=== PATIENT | male | born 1950 | race American Indian/Alaskan Native ===

== ENCOUNTER 2017-02-07 23:17 | Observation (INO) | payer MEDICARE, BC, OTHER ==
[2017-02-07] MEDS ORDERED: Sodium Chloride 0.9% 10 ML Syringe FLUSH PRN (23:28)
[2017-02-07] MEDS ORDERED: Ondansetron 4 MG/2 ML SDV IVPUSH ONE (23:28)
[2017-02-07] MEDS ORDERED: Sodium Chloride 0.9% 2.5 ML Syringe FLUSH PRN (23:28)
[2017-02-07] MEDS ORDERED: Sodium Chloride 0.9% 1,000 ML IV ONE (23:28)
--- NOTE | 2017-02-07 23:33 | EDM.PDOC ---
ED HPI GENERAL MEDICAL PROBLEM - General Stated Complaint: FALL/FLU LIKE SYMPTOMS Time Seen by Provider: 02/07/17 23:26 - History of Present Illness INITIAL COMMENTS - FREE TEXT/NARRATIVE: HISTORY AND PHYSICAL: History of present illness: The patient is a 66-year-old male with a history of hypertension foot drop for a few weeks which is not new and 3 heart attacks with 3 stents done at [facility] in [place], the last one was in September, who presents via EMS for a one- day history of nausea vomiting and diarrhea all day and a syncopal event. According to EMS they were dispatched with a syncopal event and on arrival patient was groggy and a heart rate in the 30s and he was hypotensive. They thought he might be in third degree heart block from their monitor. After moving into the car in route his heart rate went up to the 70s and he was in sinus Patient currently in the ED is awake alert and oriented and contributing all answers to questions. He says he had nausea and vomiting all day and multiple episodes of loose runny stool --neither the vomit or the diarrhea was black or bloody. The story is that he was in the bathroom and he may have tripped and fell passing out or he may of had a syncopal event but is unsure how long he had loss of consciousness for. Patient complained of generalized weakness and lightheadedness prior to these events and all day and currently complains of that as well. In the ER he has no head or neck pain no chest pain no shortness of breath no abdominal pain and no extremity complaints. He has no neurosensory changes in his legs or arms and does not feel confused. Patient denies any symptomatology in the ED. He only feels generalized weakness Review of systems: As per history of present illness and below otherwise all systems reviewed and negative. Past medical history: As per history of present illness and as reviewed below otherwise noncontributory. Surgical history: As per history of present illness and as reviewed below otherwise noncontributory. Social history: No reported history of drug or alcohol abuse. Family history: As per history of present illness and as reviewed below otherwise noncontributory. Physical exam: General: Well-developed well-nourished man who is speaking clearly and easily in the ED and is cooperative moving all extremities. Vital signs been noted by me. HEENT: Atraumatic, normocephalic, pupils reactive, negative for conjunctival pallor or scleral icterus, mucous membranes moist, throat clear, neck supple, nontender, trachea midline. There are no midline step-offs tenderness defects of the cervical spine and the c-collar that was applied by EMS was removed by me during this exam. Is no evidence of any scalp or facial trauma. Lungs: Clear to auscultation, breath sounds equal bilaterally, chest nontender. Heart: S1S2, regular, negative for clicks, rubs, or JVD. Abdomen: Soft, nondistended, nontender. He has a small soft reducible umbilical hernia Negative for masses or hepatosplenomegaly. Negative for costovertebral tenderness. Pelvis: Stable nontender. Genitourinary: Deferred. Rectal: Deferred. Extremities: Atraumatic, negative for cords or calf pain. Neurovascular unremarkable. Full range of motion without defects or deficits Neuro: Awake, alert, oriented. Cranial nerves II through XII unremarkable. Cerebellum unremarkable. Motor and sensory unremarkable throughout. Exam nonfocal. Back: There are no midline step-offs tenderness defects the thoracic or lumbar spine no posterior rib or posterior pelvis tenderness and no soft tissue injuries are appreciated Diagnostics: EKG chest x-ray CT scan of the head CBC CMP INR lipase amylase troponin UA Therapeutics: IV O2 monitor IV fluids pacer pads Zofran Rocephin 0103: All testing results were discussed with the patient and family at bedside as well as our hospitalist ; he has agreed to observation admission. Impression: Syncopal event, episode of bradycardia resolved spontaneously, UTI, history of vomiting and diarrhea stable Definitive disposition and diagnosis as appropriate pending reevaluation and review of above. - Related Data Allergies Allergy/AdvReac Type Severity Reaction Status Date / Time No Known Allergies Allergy Verified 02/08/17 00:27 Home Meds: Home Meds Clopidogrel Bisulfate [Clopidogrel] 75 mg PO QAM 02/07/17 [History] Diclofenac Sodium [IMW: Diclofenac Sodium] 75 mg PO BIDMEALS PRN 02/07/17 [ History] Lisinopril 2.5 mg PO DAILY 02/07/17 [History] Metoprolol Succinate [Toprol XL] 25 g PO DAILY 02/07/17 [History] Pregabalin [Lyrica] 75 mg PO DAILY 02/07/17 [History] Sertraline HCl 50 mg PO QAM 02/07/17 [History] Past Medical History - Past Health History Medical/Surgical History: Denies Medical/Surgical History Social & Family History - Tobacco Use Years of Tobacco use: 45 - Alcohol Use Days Per Week of Alcohol Use: 0 - Recreational Drug Use Recreational Drug Use: No ED ROS GENERAL - Review of Systems Review Of Systems: ROS reveals no pertinent complaints other than HPI. ED EXAM, GENERAL - Physical Exam Exam: See Below (See dictation) Course - Vital Signs Last Recorded V/S: Last Vital Signs Temp 35.9 C 02/07/17 23:45 Pulse 71 02/07/17 23:45 Resp 18 02/07/17 23:45 BP 94/63 02/07/17 23:45 Pulse Ox 94 L 02/07/17 23:45 - Orders/Labs/Meds Orders: Active Orders 24 hr Category Date Time Status Patient Status [ADT] Stat ADT 02/08/17 01:04 Ordered Blood Glucose Check, Bedside [RC] ONETIME Care 02/07/17 23:27 Active Cardiac Monitoring [RC] . DIRECTED Care 02/07/17 23:27 Active Communication Order [RC] STAT Care 02/07/17 23:29 Active EKG Documentation Completion [RC] STAT Care 02/07/17 23:27 Active Oxygen Therapy, ED [RC] ASDIRECTED Care 02/07/17 23:27 Active Pulse Oximetry [RC] ASDIRECTED Care 02/07/17 23:27 Active Chest 1V Frontal [CR] Stat Exams 02/07/17 23:28 Taken Head wo Cont [CT] Stat Exams 02/07/17 23:28 Taken CULTURE URINE [RM] Stat Lab 02/08/17 01:04 Ordered Sodium Chloride 0.9% [Saline Flush] Med 02/07/17 23:28 Active 10 ml FLUSH ASDIRECTED PRN Sodium Chloride 0.9% [Saline Flush] Med 02/07/17 23:28 Active 2.5 ml FLUSH ASDIRECTED PRN cefTRIAXone [Rocephin in Dextrose,Iso-Osm 1 GM/50 ML] 1 Med 02/08/17 01:04 Ordered gm Premix Bag 1 bag IV ONETIME Saline Lock Insert [OM.PC] Stat Oth 02/07/17 23:27 Ordered Medication Orders Sodium Chloride (Saline Flush) 10 ml FLUSH ASDIRECTED PRN PRN Reason: Keep Vein Open Last Admin: 02/07/17 23:35 Dose: 10 ml Sodium Chloride (Saline Flush) 2.5 ml FLUSH ASDIRECTED PRN PRN Reason: Keep Vein Open Last Admin: 02/07/17 23:34 Dose: 2.5 ml Labs: Laboratory Tests 02/07/17 02/07/17 02/07/17 Range/Units 23:29 23:42 23:42 WBC 12.46 H (4.0-11.0) K/uL RBC 5.17 (4.50-5.90) M/uL Hgb 15.5 (13.0-17.0) g/dL Hct 47.7 (38.0-50.0) % MCV 92.3 (80.0-98.0) fL MCH 30.0 (27.0-32.0) pg MCHC 32.5 (31.0-37.0) g/dL RDW Std Deviation 50.9 (28.0-62.0) fl RDW Coeff of Jeanette 15 (11.0-15.0) % Plt Count 206 (150-400) K/uL MPV 10.30 (7.40-12.00) fL Neut % (Auto) 84.7 H (48.0-80.0) % Lymph % (Auto) 7.0 L (16.0-40.0) % Green % (Auto) 5.9 (0.0-15.0) % Eos % (Auto) 2.2 (0.0-7.0) % Baso % (Auto) 0.2 (0.0-1.5) % Neut # (Auto) 10.6 H (1.4-5.7) K/uL Lymph # (Auto) 0.9 (0.6-2.4) K/uL Green # (Auto) 0.7 (0.0-0.8) K/uL Eos # (Auto) 0.3 (0.0-0.7) K/uL Baso # (Auto) 0.0 (0.0-0.1) K/uL Nucleated RBC % 0.0 /100WBC Nucleated RBCs # 0 K/uL INR 1.04 (0.86-1.11) Sodium (136-146) mmol/L Potassium (3.5-5.1) mmol/L Chloride (98-110) mmol/L Carbon Dioxide (21-31) mmol/L BUN (6.0-23.0) mg/dL Creatinine (0.6-1.5) mg/dL Est Cr Clr Drug Dosing Estimated GFR (MDRD) ml/min Glucose (60-110) mg/dL POC Glucose 142 H (60-110) mg/dL Calcium (8.8-10.8) mg/dL Total Bilirubin (0.1-1.5) mg/dL AST (5-40) IU/L ALT (8-54) IU/L Alkaline Phosphatase (40-150) Troponin I (0.0-0.29) NG/ML Total Protein (6.0-8.0) g/dL Albumin (3.4-4.8) g/dL Globulin (2.0-3.5) g/dL Albumin/Globulin Ratio (1.3-2.8) Amylase (10-90) U/L Lipase (7-80) U/L Urine Color Urine Appearance Urine pH (5.0-8.0) Ur Specific [place] (1.001-1.035) Urine Protein (NEGATIVE) mg/dL Urine Glucose (UA) (NEGATIVE) mg/dL Urine Ketones (NEGATIVE) mg/dL Urine Occult Blood (NEGATIVE) Urine Nitrite (NEGATIVE) Urine Bilirubin (NEGATIVE) Urine Ictotest Urine Urobilinogen (<2.0) EU/dL Ur Leukocyte Esterase (NEGATIVE) Urine RBC (0-2/HPF) Urine WBC (0-5/HPF) Ur Epithelial Cells (NONE-FEW) Urine Bacteria (NEGATIVE) Hyaline Casts (0-2/LPF) Urine Mucus (NONE-MOD) Urinalysis Comment 02/07/17 02/07/17 02/08/17 Range/Units 23:42 23:42 00:04 WBC (4.0-11.0) K/uL RBC (4.50-5.90) M/uL Hgb (13.0-17.0) g/dL Hct (38.0-50.0) % MCV (80.0-98.0) fL MCH (27.0-32.0) pg MCHC (31.0-37.0) g/dL RDW Std Deviation (28.0-62.0) fl RDW Coeff of Jeanette (11.0-15.0) % Plt Count (150-400) K/uL MPV (7.40-12.00) fL Neut % (Auto) (48.0-80.0) % Lymph % (Auto) (16.0-40.0) % Green % (Auto) (0.0-15.0) % Eos % (Auto) (0.0-7.0) % Baso % (Auto) (0.0-1.5) % Neut # (Auto) (1.4-5.7) K/uL Lymph # (Auto) (0.6-2.4) K/uL Green # (Auto) (0.0-0.8) K/uL Eos # (Auto) (0.0-0.7) K/uL Baso # (Auto) (0.0-0.1) K/uL Nucleated RBC % /100WBC Nucleated RBCs # K/uL INR (0.86-1.11) Sodium 142 (136-146) mmol/L Potassium 4.0 (3.5-5.1) mmol/L Chloride 111 H (98-110) mmol/L Carbon Dioxide 22 (21-31) mmol/L BUN 18 (6.0-23.0) mg/dL Creatinine 1.5 (0.6-1.5) mg/dL Est Cr Clr Drug Dosing TNP Estimated GFR (MDRD) 46.7 ml/min Glucose 133 H (60-110) mg/dL POC Glucose (60-110) mg/dL Calcium 8.4 L (8.8-10.8) mg/dL Total Bilirubin 1.8 H (0.1-1.5) mg/dL AST 15 (5-40) IU/L ALT 16 (8-54) IU/L Alkaline Phosphatase 66 (40-150) Troponin I < 0.10 (0.0-0.29) NG/ML Total Protein 6.3 (6.0-8.0) g/dL Albumin 3.7 (3.4-4.8) g/dL Globulin 2.6 (2.0-3.5) g/dL Albumin/Globulin Ratio 1.4 (1.3-2.8) Amylase 54 (10-90) U/L Lipase 23 (7-80) U/L Urine Color DARK YELLOW Urine Appearance SLT CLOUDY Urine pH 5.5 (5.0-8.0) Ur Specific [place] >= 1.030 (1.001-1.035) Urine Protein 100 (NEGATIVE) mg/dL Urine Glucose (UA) NEGATIVE (NEGATIVE) mg/dL Urine Ketones 15 H (NEGATIVE) mg/dL Urine Occult Blood NEGATIVE (NEGATIVE) Urine Nitrite NEGATIVE (NEGATIVE) Urine Bilirubin MODERATE H (NEGATIVE) Urine Ictotest POSITIVE Urine Urobilinogen 0.2 (<2.0) EU/dL Ur Leukocyte Esterase NEGATIVE (NEGATIVE) Urine RBC 0-2 (0-2/HPF) Urine WBC 2-3 (0-5/HPF) Ur Epithelial Cells FEW (NONE-FEW) Urine Bacteria 2+ H (NEGATIVE) Hyaline Casts 10-15 (0-2/LPF) Urine Mucus LIGHT (NONE-MOD) Urinalysis Comment SEE COMMENT Meds: Medications Generic Name Dose Route Start Last Admin Trade Name Freq PRN Reason Stop Dose Admin Sodium Chloride 10 ml 02/07/17 23:28 02/07/17 23:35 Saline Flush FLUSH 10 ml ASDIRECTED PRN Administration Keep Vein Open Sodium Chloride 2.5 ml 02/07/17 23:28 02/07/17 23:34 Saline Flush FLUSH 2.5 ml ASDIRECTED PRN Administration Keep Vein Open Discontinued Medications Generic Name Dose Route Start Last Admin Trade Name Freq PRN Reason Stop Dose Admin Sodium Chloride 1,000 mls @ 999 mls/hr 02/07/17 23:28 02/07/17 23:34 Normal Saline IV 02/08/17 00:28 999 mls/hr STAT ONE Administration Ondansetron HCl 4 mg 02/07/17 23:28 02/07/17 23:35 Zofran IVPUSH 02/07/17 23:29 4 mg ONETIME ONE Administration Departure - Departure Time of Disposition: 01:06 Disposition: Refer to Observation Condition: good Clinical Impression: Vomiting and diarrhea Syncope Qualifiers: Syncope type: unspecified Qualified Code(s): R55 - Syncope and collapse UTI (urinary tract infection) Qualifiers: Urinary tract infection type: site unspecified Hematuria presence: without hematuria Qualified Code(s): N39.0 - Urinary tract infection, site not specified - My Orders Last 24 Hours: My Active Orders 02/07/17 23:27 Blood Glucose Check, Bedside [RC] ONETIME Cardiac Monitoring [RC] . DIRECTED EKG Documentation Completion [RC] STAT Oxygen Therapy, ED [RC] ASDIRECTED Pulse Oximetry [RC] ASDIRECTED Saline Lock Insert [OM.PC] Stat 02/07/17 23:28 Chest 1V Frontal [CR] Stat Head wo Cont [CT] Stat Sodium Chloride 0.9% [Saline Flush] 10 ml FLUSH ASDIRECTED PRN Sodium Chloride 0.9% [Saline Flush] 2.5 ml FLUSH ASDIRECTED PRN 02/07/17 23:29 Communication Order [RC] STAT 02/08/17 01:04 Patient Status [ADT] Stat CULTURE URINE [RM] Stat cefTRIAXone [Rocephin in Dextrose,Iso-Osm 1 GM/50 ML] 1 gm Premix Bag 1 bag IV ONETIME - Assessment/Plan Last 24 Hours: My Active Orders 02/07/17 23:27 Blood Glucose Check, Bedside [RC] ONETIME Cardiac Monitoring [RC] . DIRECTED EKG Documentation Completion [RC] STAT Oxygen Therapy, ED [RC] ASDIRECTED Pulse Oximetry [RC] ASDIRECTED Saline Lock Insert [OM.PC] Stat 02/07/17 23:28 Chest 1V Frontal [CR] Stat Head wo Cont [CT] Stat Sodium Chloride 0.9% [Saline Flush] 10 ml FLUSH ASDIRECTED PRN Sodium Chloride 0.9% [Saline Flush] 2.5 ml FLUSH ASDIRECTED PRN 02/07/17 23:29 Communication Order [RC] STAT 02/08/17 01:04 Patient Status [ADT] Stat CULTURE URINE [RM] Stat cefTRIAXone [Rocephin in Dextrose,Iso-Osm 1 GM/50 ML] 1 gm Premix Bag 1 bag IV ONETIME
[2017-02-08 00:07] LABS: CHLORIDE,CL 111 mmol/L (98-110); SODIUM,NA 142 mmol/L (136-146)
[2017-02-08] MEDS ORDERED: cefTRIAXone 1 GM in Premix Bag 1 BAG IV ONE (01:04)
[2017-02-08 05:23] LABS: CHLORIDE,CL 113 mmol/L (98-110); SODIUM,NA 142 mmol/L (136-146)
[2017-02-08] MEDS ORDERED: Diclofenac Sodium 75 MG Tab.EC PO PRN (08:20)
[2017-02-08] MEDS ORDERED: Metoprolol Succinate 25 MG Tab.ER PO SCH (09:00)
[2017-02-08] MEDS ORDERED: Sertraline 50 MG Tab PO SCH (09:00)
[2017-02-08] MEDS ORDERED: Pregabalin 75 MG Cap PO SCH (09:00)
[2017-02-08] MEDS ORDERED: Clopidogrel 75 MG Tab PO SCH (09:00)
[2017-02-08] MEDS ORDERED: Lisinopril 5 MG Tab PO SCH (09:00)
[2017-02-08 09:05] VITALS: BP 110/66
[2017-02-08] MEDS ORDERED: Famotidine 20 MG Tab PO ONE (09:27)
[2017-02-08] MEDS ORDERED: Levofloxacin 500 MG Tab PO SCH (10:00)
--- NOTE | 2017-02-08 14:30 | CR ---
EXAM DATE: 02/08/17 PATIENT'S AGE: 66 Patient: TOMI FARZAD Facility: [place], [place] Site . Site : 1950 Study: XRay Chest [id number]/18/2017 11:52:26 PM Ordering Physician: Natalee Hendrix Final Report: INDICATION: Shortness of breath TECHNIQUE: Chest 1 view. COMPARISON: 05/03/2014 FINDINGS: Cardiovascular and mediastinum: Heart size and vasculature are normal in caliber and appearance. Mediastinum is within normal limits. Lungs and pleural space: Lungs are clear. No sign of infiltrate. Stable subcentimeter bilateral lower lobe nodular densities. No sign of pleural effusion. No pneumothorax. Bones and soft tissues: No significant findings. IMPRESSION: No acute pulmonary or cardiac abnormalities. Stable appearance of chest compared to 05/03/14. Dictated by Tomi Rodriguez MD @ Feb 08 2017 12:13AM (Electronic Signature) Report Signed by Proxy and Original Signed Document filed in the Medical Record. [facility]
--- NOTE | 2017-02-08 14:31 | CT ---
EXAM DATE: 02/08/17 PATIENT'S AGE: 66 Patient: LORI PANDA Facility: [place], [place] Site . Site : 1950 Study: CT Head [id number]/19/2017 12:21:13 AM Ordering Physician: ELVIRA Final Report: INDICATIONS: Pain. TECHNIQUE: CT head without contrast. COMPARISON: CT head without contrast November 05, 2012. FINDINGS: Mild volume loss. Focal atrophy versus arachnoid cyst in the left middle cranial fossa, unchanged. No mass effect or midline shift. No hydrocephalus. No CT evidence of acute hemorrhage or infarction. No abnormal extra-axial fluid collection. Bone windows show no acute abnormality. Visualized paranasal sinuses and orbits are unremarkable. IMPRESSION: No acute intracranial abnormality. Dictated by Rick Hernandez MD @ 02/08/2017 12:26:00 AM Dictated by: Rick Hernandez MD @ 02/08/2017 00:26:20 (Electronic Signature) Report Signed by Proxy and Original Signed Document filed in the Medical Record. [facility]
--- NOTE | 2017-02-10 11:05 | PCM.HP ---
H&P History of Present Illness - General Date of Service: 02/08/17 Admit Problem/Dx: Syncope Source of Information: Patient History Limitations: Reports: No limitations - History of Present Illness Initial Comments - Free Text/Narative: 66-year-old male that was admitted after having an unwitnessed syncopal episode. Patient states that over the past day he has had nausea, vomiting and diarrhea. His appetite has been depressed. He states he went to the bathroom and is unsure what happened next but woke up on the floor. He is unsure how long he was unconscious for. When EMS arrived they found that his heart rate was in the 30s and he was hypotensive. There was concern for complete heart block but once the patient was moved into the ambulance his heart rate increased to mid 70s. Patient was brought to the emergency room where he denied any pain but only weakness. Visiting with the patient in the emergency room, he denies any headaches, dizziness, lightheadedness, chest pain, palpitations, shortness of breath, wheezing, cough, abdominal pain, nausea, vomiting, constipation, dysuria, hematuria, fever, numbness/tingling/weakness in the upper and lower extremities bilaterally. His only complaint is generalized weakness. ER course: Head CT and chest x-ray were unremarkable. White blood cell count was elevated at 13,000. Initial troponin was negative. CMP was negative. Urinalysis showed + 2 bacteria. Patient was given IV fluids and an IM injection of Rocephin. Epigastric Pain Score (Numeric/FACES): 4 - Related Data Allergies/Adverse Reactions: Allergies Allergy/AdvReac Type Severity Reaction Status Date / Time No Known Allergies Allergy Verified 02/08/17 00:27 Home Medications: Home Meds Clopidogrel Bisulfate [Clopidogrel] 75 mg PO QAM 02/07/17 [History] Diclofenac Sodium [IMW: Diclofenac Sodium] 75 mg PO BIDMEALS PRN 02/07/17 [ History] Lisinopril 2.5 mg PO DAILY 02/07/17 [History] Metoprolol Succinate [Toprol XL] 25 mg PO DAILY 02/07/17 [History] Pregabalin [Lyrica] 75 mg PO DAILY 02/07/17 [History] Sertraline HCl 50 mg PO QAM 02/07/17 [History] Levofloxacin [Levaquin] 750 mg PO Q24H #4 tablet 02/08/17 [Rx] Past Medical History - Past Health History Medical/Surgical History: Denies Medical/Surgical History Cardiovascular History: Reports: High cholesterol, Hypertension, [place], Stents Other Cardiovascular History: 3 heart attacks, 3 stents Respiratory History: Reports: COPD Musculoskeletal History: Reports: Arthritis, Back pain, chronic - Infectious Disease History Infectious Disease History: Reports: Chicken pox, Measles, Mumps - Past Surgical History GI Surgical History: Reports: Cholecystectomy Social & Family History - Family History Family Medical History: Noncontributory - Tobacco Use Smoking Status *Q: Former Smoker Years of Tobacco use: 45 Used Tobacco, but Quit: Yes Month Tobacco Last Used: not applicable Second Hand Smoke Exposure: No - Caffeine Use Caffeine Use: Reports: Coffee Caffeine Use Comment: 3-4cups/day - Alcohol Use Days Per Week of Alcohol Use: 0 - Recreational Drug Use Recreational Drug Use: No H&P Review of Systems - Review of Systems: Review Of Systems: See Below General: Reports: weakness (Generalized weakness) HEENT: Reports: no symptoms Pulmonary: Reports: No Symptoms Cardiovascular: Reports: no symptoms Gastrointestinal: Reports: No symptoms Genitourinary: Reports: no symptoms Musculoskeletal: Reports: no symptoms Skin: Reports: no symptoms Psychiatric: Reports: no symptoms Neurological: Reports: No Symptoms Hematologic/Lymphatic: Reports: no symptoms Immunologic: Reports: no symptoms Exam - Exam Exam: See Below - Vital Signs Vital Signs: Last Vital Signs Temp 98.7 F 02/08/17 08:00 Pulse 77 02/08/17 08:49 Resp 18 02/08/17 08:00 BP 104/65 02/08/17 08:49 Pulse Ox 90 L 02/08/17 08:00 Weight: 229 lb 4.492 oz - Exam Quality Assessment: DVT prophylaxis (scd's) General: alert, oriented, cooperative HEENT: Mucosa moist & pink, Posterior pharynx clear Neck: supple, trachea midline, 2 Lungs: Clear to auscultation, Normal respiratory effort Cardiovascular: regular rate, regular rhythm Abdomen: normal bowel sounds, soft Back Exam: normal inspection Extremities: normal inspection. No: calf tenderness, edema Peripheral Pulses: 2+: radial (L), radial (R) Skin: warm, dry, intact Neurological: cranial nerves intact Neuro Extensive - Mental Status: alert, oriented x3, normal mood/affect, normal cognition Neuro Extensive - Motor, Sensory, Reflexes: CN II-XII intact Psychiatric: alert, normal affect, normal mood - Patient Data Result Diagrams: 02/08/17 04:43 02/08/17 04:43 *Q Meaningful Use (ADM) - VTE *Q VTE Criteria *Q: - Stroke *Q Stroke Criteria *Q: - AMI *Q AMI Criteria *Q: - Problem List (1) Syncope SNOMED Code(s): 149561432 ICD Code: R55 - SYNCOPE AND COLLAPSE Status: Acute Qualifiers: Syncope type: unspecified Qualified Code(s): R55 - Syncope and collapse (2) UTI (urinary tract infection) SNOMED Code(s): 44617862 ICD Code: N39.0 - URINARY TRACT INFECTION, SITE NOT SPECIFIED Status: Acute Qualifiers: Urinary tract infection type: site unspecified Hematuria presence: without hematuria Qualified Code(s): N39.0 - Urinary tract infection, site not specified (3) Vomiting and diarrhea SNOMED Code(s): 403694127 ICD Code: R11.10 - VOMITING, UNSPECIFIED; R19.7 - DIARRHEA, UNSPECIFIED Status: Acute Problem List Initiated/Reviewed/Updated: Yes Assessment/Plan Comment:: 66-year-old male admitted with an unwitnessed syncopal episode, bradycardia and urinary tract infection. #1. Urinary tract infection: -Patient will be started on Levaquin 750 mg by mouth daily. #2. Bradycardia/unwitnessed syncopal episode: -Patient will be placed on telemetry. -Head CT and chest x-ray unremarkable. Discharge: Admission diagnosis: #1. Unwitnessed syncopal episode #2. Bradycardia #3. Urinary tract infection #4. Generalized weakness Discharge diagnoses: #1. Unwitnessed syncopal episode #2. Bradycardia, improved #3. Urinary tract infection #4. Generalized weakness, improved Patient was admitted after suffering an unwitnessed syncopal episode with bradycardia and found to have urinary tract infection while in the emergency room with +2 bacteria noted on urinalysis. Patient received an IM injection of Rocephin while in the emergency room and then was started on Levaquin 750 mg by mouth. He was also given IV fluids and monitored on telemetry for any cardiac events. No cardiac events were appreciated. Initial troponins were negative x2. White blood cell count improved from 13,000-10,000. Generalized weakness improved and the patient was able to ambulate without any assistance and without any dizziness or lightheadedness. Patient is tolerating oral intake and voiding appropriately upon discharge. Discharge plan: #1. Prescribe Levaquin 750 mg daily for 4 days for UTI. #2. Patient will followup with Dr. Smith on February 16, 2017.
== END 2017-02-08 11:59 | disposition home or self-care (01) ==
LOC: MW.ED 23:17 → MW.MS 02-08 01:12
PROVIDERS: ADMIT Family Medicine; ATTEND Family Medicine
DX: R55 Syncope and collapse (principal); N39.0 Urinary tract infection, site not specified; Z87.891 Personal history of nicotine dependence; Z79.899 Other long term (current) drug therapy; I25.2 Old myocardial infarction; I10 Essential (primary) hypertension; Z95.5 Presence of coronary angioplasty implant and graft; E78.00 Pure hypercholesterolemia, unspecified; J44.9 Chronic obstructive pulmonary disease, unspecified; M19.90 Unspecified osteoarthritis, unspecified site
CPT/HCPCS: 36415; 70450; 71010; 80048; 80053; 81001; 82150; 82962; 83690; 84484; 85025; 85610; 87086; 93005; 96361; 96374; 96375; 99285; A9270; G0378; J0696; J2405; J7040

== ENCOUNTER 2017-05-18 08:34 | Observation (INO) | payer MEDICARE, BC, OTHER ==
[2017-05-18] MEDS ORDERED: Ondansetron 4 MG/2 ML SDV IVPUSH ONE (08:40)
[2017-05-18] MEDS ORDERED: Sodium Chloride 0.9% 1,000 ML IV ONE (08:40)
--- NOTE | 2017-05-18 08:44 | EDM.PDOC ---
ED HPI GENERAL MEDICAL PROBLEM - General Stated Complaint: CHEST PAIN Time Seen by Provider: 05/18/17 08:42 Source of Information: Reports: Patient - History of Present Illness INITIAL COMMENTS - FREE TEXT/NARRATIVE: HISTORY AND PHYSICAL: History of present illness: Shunt presents with abdominal pain by EMS Pain is 0 out of 10 at rest increased 5 out of 10 with movement has been increasing since yesterday evening associated with fever nausea vomiting chills sweats Last bowel movement this morning denies diarrhea or constipation no dysuria no chest pain shortness breath headache dizziness palpitation no bowel or urine symptoms Review of systems: As per history of present illness and below otherwise all systems reviewed and negative. Past medical history: As per history of present illness and as reviewed below otherwise noncontributory. Surgical history: As per history of present illness and as reviewed below otherwise noncontributory. Social history: No reported history of drug or alcohol abuse. Family history: As per history of present illness and as reviewed below otherwise noncontributory. Physical exam: HEENT: Atraumatic, normocephalic, pupils reactive, negative for conjunctival pallor or scleral icterus, mucous membranes moist, throat clear, neck supple, nontender, trachea midline. Lungs: Clear to auscultation, breath sounds equal bilaterally, chest nontender. Heart: S1S2, regular, negative for clicks, rubs, or JVD. Abdomen: Soft, nondistended, nontender on upper quadrants and left lower quadrant however right lower quadrant is associated with guarding tenderness on deep palpation. Negative for masses or hepatosplenomegaly. Negative for costovertebral tenderness. Pelvis: Stable nontender. Genitourinary: Deferred. Rectal: Deferred. Extremities: Atraumatic, negative for cords or calf pain. Neurovascular unremarkable. Neuro: Awake, alert, oriented. Cranial nerves II through XII unremarkable. Cerebellum unremarkable. Motor and sensory unremarkable throughout. Exam nonfocal. Diagnostics: []CBC, CMP, UA, troponin lipase EMS glucose 117 Therapeutics: []Liter normal saline bolus Patient declines pain medication at this time Zofran 8 mg IV Morphine [address] Carlisle informed of the acute appendicitis he'll be down to the ER for his evaluation and treatment, further orders pending Dr. Carlisle's evaluation Impression: Acute appendicitis []Right lower quadrant pain Chronic history of baseline Definitive disposition and diagnosis as appropriate pending reevaluation and review of above. right lower abdominal Pain Score (Numeric/FACES): 5 - Related Data Allergies Allergy/AdvReac Type Severity Reaction Status Date / Time No Known Allergies Allergy Verified 05/18/17 08:53 Home Meds: Home Meds Clopidogrel Bisulfate [Clopidogrel] 75 mg PO QAM 02/07/17 [History] Diclofenac Sodium [IMW: Diclofenac Sodium] 75 mg PO BIDMEALS PRN 02/07/17 [ History] Lisinopril 2.5 mg PO DAILY 02/07/17 [History] Metoprolol Succinate [Toprol XL] 25 mg PO DAILY 02/07/17 [History] Sertraline HCl 50 mg PO QAM 02/07/17 [History] Cyanocobalamin (Vitamin B-12) [Cyanocobalamin Injection] 1,000 mcg IJ Q14D 05/18 [History] Nitroglycerin [Nitrostat] 0.4 mg SL Q5M PRN 05/18/17 [History] Past Medical History - Past Health History Medical/Surgical History: Denies Medical/Surgical History Cardiovascular History: Reports: High Cholesterol, Hypertension, [place], Stents Other Cardiovascular History: 3 heart attacks, 3 stents Respiratory History: Reports: COPD Musculoskeletal History: Reports: Arthritis, Back Pain, Chronic - Infectious Disease History Infectious Disease History: Reports: Chicken Pox, Measles, Mumps - Past Surgical History GI Surgical History: Reports: Cholecystectomy Social & Family History - Family History Family Medical History: Noncontributory - Tobacco Use Smoking Status *Q: Former Smoker Years of Tobacco use: 45 Used Tobacco, but Quit: Yes Month Tobacco Last Used: not applicable Second Hand Smoke Exposure: No - Caffeine Use Caffeine Use: Reports: Coffee Caffeine Use Comment: 3-4cups/day - Alcohol Use Days Per Week of Alcohol Use: 0 - Recreational Drug Use Recreational Drug Use: No ED ROS GENERAL - Review of Systems Review Of Systems: ROS reveals no pertinent complaints other than HPI. ED EXAM, GENERAL - Physical Exam Exam: See Below Course - Vital Signs Last Recorded V/S: Last Vital Signs Temp 36.5 C 05/18/17 10:21 Pulse 62 05/18/17 10:21 Resp 14 05/18/17 10:21 BP 123/70 05/18/17 10:21 Pulse Ox 94 L 05/18/17 10:21 - Orders/Labs/Meds Orders: Active Orders 24 hr Category Date Time Status EKG Documentation Completion [RC] STAT Care 05/18/17 08:41 Active Abdomen Pelvis w wo Cont [CT] Stat Exams 05/18/17 08:42 Taken UA W/MICROSCOPIC [URIN] Stat Lab 05/18/17 10:30 Results Morphine Med 05/18/17 11:13 Once 2 mg IV ONETIME ONE Labs: Laboratory Tests 05/18/17 05/18/17 05/18/17 Range/Units 08:47 08:47 08:47 WBC 16.72 H (4.0-11.0) K/uL RBC 5.12 (4.50-5.90) M/uL Hgb 15.6 (13.0-17.0) g/dL Hct 46.9 (38.0-50.0) % MCV 91.6 (80.0-98.0) fL MCH 30.5 (27.0-32.0) pg MCHC 33.3 (31.0-37.0) g/dL RDW Std Deviation 51.7 (28.0-62.0) fl RDW Coeff of Jeanette 15 (11.0-15.0) % Plt Count 190 (150-400) K/uL MPV 10.40 (7.40-12.00) fL Neut % (Auto) 84.4 H (48.0-80.0) % Lymph % (Auto) 8.6 L (16.0-40.0) % Barber % (Auto) 5.7 (0.0-15.0) % Eos % (Auto) 1.0 (0.0-7.0) % Baso % (Auto) 0.3 (0.0-1.5) % Neut # (Auto) 14.1 H (1.4-5.7) K/uL Lymph # (Auto) 1.4 (0.6-2.4) K/uL Barber # (Auto) 1.0 H (0.0-0.8) K/uL Eos # (Auto) 0.2 (0.0-0.7) K/uL Baso # (Auto) 0.1 (0.0-0.1) K/uL Nucleated RBC % 0.0 /100WBC Nucleated RBCs # 0 K/uL Sodium 139 (136-146) mmol/L Potassium 4.1 (3.5-5.1) mmol/L Chloride 106 (98-110) mmol/L Carbon Dioxide 26 (21-31) mmol/L BUN 18 (6.0-23.0) mg/dL Creatinine 1.0 (0.6-1.5) mg/dL Est Cr Clr Drug Dosing 74.01 mL/min Estimated GFR (MDRD) > 60.0 ml/min Glucose 118 H (60-110) mg/dL Calcium 8.9 (8.8-10.8) mg/dL Total Bilirubin 1.8 H (0.1-1.5) mg/dL AST 23 (5-40) IU/L ALT 19 (8-54) IU/L Alkaline Phosphatase 64 (40-150) Troponin I < 0.10 (0.0-0.29) NG/ML Total Protein 6.8 (6.0-8.0) g/dL Albumin 4.0 (3.4-4.8) g/dL Globulin 2.8 (2.0-3.5) g/dL Albumin/Globulin Ratio 1.4 (1.3-2.8) Amylase (10-90) U/L Lipase (7-80) U/L Urine Color Urine Appearance Urine pH (5.0-8.0) Ur Specific [place] (1.001-1.035) Urine Protein (NEGATIVE) mg/dL Urine Glucose (UA) (NEGATIVE) mg/dL Urine Ketones (NEGATIVE) mg/dL Urine Occult Blood (NEGATIVE) Urine Nitrite (NEGATIVE) Urine Bilirubin (NEGATIVE) Urine Urobilinogen (<2.0) EU/dL Ur Leukocyte Esterase (NEGATIVE) 05/18/17 05/18/17 Range/Units 09:49 10:30 WBC (4.0-11.0) K/uL RBC (4.50-5.90) M/uL Hgb (13.0-17.0) g/dL Hct (38.0-50.0) % MCV (80.0-98.0) fL MCH (27.0-32.0) pg MCHC (31.0-37.0) g/dL RDW Std Deviation (28.0-62.0) fl RDW Coeff of Jeanette (11.0-15.0) % Plt Count (150-400) K/uL MPV (7.40-12.00) fL Neut % (Auto) (48.0-80.0) % Lymph % (Auto) (16.0-40.0) % Barber % (Auto) (0.0-15.0) % Eos % (Auto) (0.0-7.0) % Baso % (Auto) (0.0-1.5) % Neut # (Auto) (1.4-5.7) K/uL Lymph # (Auto) (0.6-2.4) K/uL Barber # (Auto) (0.0-0.8) K/uL Eos # (Auto) (0.0-0.7) K/uL Baso # (Auto) (0.0-0.1) K/uL Nucleated RBC % /100WBC Nucleated RBCs # K/uL Sodium (136-146) mmol/L Potassium (3.5-5.1) mmol/L Chloride (98-110) mmol/L Carbon Dioxide (21-31) mmol/L BUN (6.0-23.0) mg/dL Creatinine (0.6-1.5) mg/dL Est Cr Clr Drug Dosing mL/min Estimated GFR (MDRD) ml/min Glucose (60-110) mg/dL Calcium (8.8-10.8) mg/dL Total Bilirubin (0.1-1.5) mg/dL AST (5-40) IU/L ALT (8-54) IU/L Alkaline Phosphatase (40-150) Troponin I (0.0-0.29) NG/ML Total Protein (6.0-8.0) g/dL Albumin (3.4-4.8) g/dL Globulin (2.0-3.5) g/dL Albumin/Globulin Ratio (1.3-2.8) Amylase 56 (10-90) U/L Lipase 22 (7-80) U/L Urine Color YELLOW Urine Appearance CLEAR Urine pH 6.0 (5.0-8.0) Ur Specific [place] 1.015 (1.001-1.035) Urine Protein TRACE (NEGATIVE) mg/dL Urine Glucose (UA) NEGATIVE (NEGATIVE) mg/dL Urine Ketones NEGATIVE (NEGATIVE) mg/dL Urine Occult Blood NEGATIVE (NEGATIVE) Urine Nitrite NEGATIVE (NEGATIVE) Urine Bilirubin NEGATIVE (NEGATIVE) Urine Urobilinogen 0.2 (<2.0) EU/dL Ur Leukocyte Esterase NEGATIVE (NEGATIVE) Meds: Medications Discontinued Medications Generic Name Dose Route Start Last Admin Trade Name Lico PRN Reason Stop Dose Admin Sodium Chloride 1,000 mls @ 999 mls/hr 05/18/17 08:40 05/18/17 08:55 Normal Saline IV 05/18/17 09:40 999 mls/hr STAT ONE Administration Iopamidol 100 ml 05/18/17 10:17 05/18/17 10:33 Isovue Multipack-370 (76%) IVPUSH 05/18/17 10:18 100 ml ONETIME STA Administration Ondansetron HCl 8 mg 05/18/17 08:40 05/18/17 08:55 Zofran IVPUSH 05/18/17 08:41 8 mg ONETIME ONE Administration Departure - Departure Time of Disposition: 11:14 Disposition: Refer to Observation Condition: Fair Clinical Impression: Acute appendicitis - Discharge Information - My Orders Last 24 Hours: My Active Orders 05/18/17 08:41 EKG Documentation Completion [RC] STAT 05/18/17 08:42 Abdomen Pelvis w wo Cont [CT] Stat 05/18/17 10:30 UA W/MICROSCOPIC [URIN] Stat 05/18/17 11:13 Morphine 2 mg IV ONETIME ONE - Assessment/Plan Last 24 Hours: My Active Orders 05/18/17 08:41 EKG Documentation Completion [RC] STAT 05/18/17 08:42 Abdomen Pelvis w wo Cont [CT] Stat 05/18/17 10:30 UA W/MICROSCOPIC [URIN] Stat 05/18/17 11:13 Morphine 2 mg IV ONETIME ONE
[2017-05-18 09:18] LABS: CHLORIDE,CL 106 mmol/L (98-110); SODIUM,NA 139 mmol/L (136-146)
[2017-05-18] MEDS ORDERED: Iopamidol 755 MG/ML 500 ML Multipack Bottle IVPUSH STA (10:17)
[2017-05-18] MEDS ORDERED: Morphine 10 MG/ML Syringe IV ONE (11:13)
[2017-05-18] MEDS ORDERED: ceFAZolin 1 GM Vial ONE (11:37)
[2017-05-18] MEDS ORDERED: Bupivacaine 0.5% 30 ML SDV ONE (11:37)
[2017-05-18] MEDS ORDERED: cefOXitin 2 GM in Premix Bag 1 BAG IV ONE (11:39)
[2017-05-18] MEDS ORDERED: Midazolam 1 MG/ML 2 ML SDV ONE (11:41)
[2017-05-18] MEDS ORDERED: Lidocaine 2% 5 ML SDV ONE (11:41)
[2017-05-18] MEDS ORDERED: Ondansetron 4 MG/2 ML SDV ONE (11:41)
[2017-05-18] MEDS ORDERED: Succinylcholine/Normal Saline 200 MG/10 ML Syringe ONE (11:41)
[2017-05-18] MEDS ORDERED: fentaNYL 250 MCG/5 ML SDV ONE (11:41)
[2017-05-18] MEDS ORDERED: Propofol 200 MG/20 ML SDV ONE (11:41)
[2017-05-18] MEDS ORDERED: Lactated Ringers 1,000 ML IV SCH (11:45)
--- NOTE | 2017-05-18 11:46 | PCM.HP ---
H&P History of Present Illness - General Date of Service: 05/18/17 Admit Problem/Dx: Admission Diagnosis/Problem Admission Diagnosis/Problem Acute appendicitis 24 hour history of right lower quadrant pain with nausea. No anorexia. No vomiting. No change in bowel habits. No fever orhills. Source of Information: Patient, Family History Limitations: Reports: No Limitations - History of Present Illness Symptom Onset Date: 05/17/17 Location: Reports: Abdomen Quality: Reports: Ache, Pressure Improves with: Reports: Rest Worsens with: Reports: Movement Context: Reports: Sick Contact Associated Symptoms: Reports: Nausea/Vomiting (No vomiting). Denies: Shortness of Breath right lower abdominal Pain Score (Numeric/FACES): 5 - Related Data Allergies/Adverse Reactions: Allergies Allergy/AdvReac Type Severity Reaction Status Date / Time No Known Allergies Allergy Verified 05/18/17 08:53 Home Medications: Home Meds Clopidogrel Bisulfate [Clopidogrel] 75 mg PO QAM 02/07/17 [History] Diclofenac Sodium [IMW: Diclofenac Sodium] 75 mg PO BIDMEALS PRN 02/07/17 [ History] Lisinopril 2.5 mg PO DAILY 02/07/17 [History] Metoprolol Succinate [Toprol XL] 25 mg PO DAILY 02/07/17 [History] Sertraline HCl 50 mg PO QAM 02/07/17 [History] Cyanocobalamin (Vitamin B-12) [Cyanocobalamin Injection] 1,000 mcg IJ Q14D 05/18 [History] Nitroglycerin [Nitrostat] 0.4 mg SL Q5M PRN 05/18/17 [History] Past Medical History - Past Health History Medical/Surgical History: Denies Medical/Surgical History Cardiovascular History: Reports: High Cholesterol, Hypertension, [place], Stents Other Cardiovascular History: 3 heart attacks, 3 stents Respiratory History: Reports: COPD Musculoskeletal History: Reports: Arthritis, Back Pain, Chronic - Infectious Disease History Infectious Disease History: Reports: Chicken Pox, Measles, Mumps - Past Surgical History GI Surgical History: Reports: Cholecystectomy, Hernia, Abdominal (Umbilical) Social & Family History - Family History Family Medical History: Noncontributory - Tobacco Use Smoking Status *Q: Former Smoker Years of Tobacco use: 45 Used Tobacco, but Quit: Yes Month Tobacco Last Used: not applicable Second Hand Smoke Exposure: No - Caffeine Use Caffeine Use: Reports: Coffee Caffeine Use Comment: 3-4cups/day - Alcohol Use Days Per Week of Alcohol Use: 0 - Recreational Drug Use Recreational Drug Use: No H&P Review of Systems - Review of Systems: Review Of Systems: See Below General: Reports: Decreased Appetite. Denies: Fever, Chills HEENT: Reports: No Symptoms Pulmonary: Reports: Shortness of Breath (COPD). Denies: Hemoptysis Cardiovascular: Denies: Chest Pain, Lightheadedness, Syncope Gastrointestinal: Reports: Abdominal Pain, Anorexia, Decreased Appetite, Flatus , Nausea. Denies: Black Stool, Bloody Stool, Constipation, Diarrhea, Distension , Melena, Vomiting Genitourinary: Reports: No Symptoms Musculoskeletal: Reports: No Symptoms Skin: Denies: Cyanosis, Jaundice Psychiatric: Denies: Confusion, Depression, Anxiety Neurological: Reports: No Symptoms Hematologic/Lymphatic: Reports: No Symptoms Immunologic: Reports: No Symptoms Exam - Exam Exam: See Below - Vital Signs Vital Signs: Last Vital Signs Temp 97.7 F 05/18/17 10:21 Pulse 62 05/18/17 10:21 Resp 14 05/18/17 10:21 BP 123/70 05/18/17 10:21 Pulse Ox 94 L 05/18/17 10:21 Weight: 220 lb - Exam Quality Assessment: Supplemental Oxygen General: Alert, Oriented, Cooperative, Mild Distress HEENT: Conjunctiva Clear, EACs Clear, Hearing Intact, Pupils Equal, Pupils Reactive. No: Scleral Icterus Neck: Supple, Trachea Midline, +2 Carotid Pulse wo Bruit Lungs: Clear to Auscultation, Normal Respiratory Effort. No: Rales, Rhonchi, Wheezing Cardiovascular: Regular Rate, Regular Rhythm. No: Bradycardia, Tachycardia GI/Abdominal Exam: Normal Bowel Sounds, Soft, No Distention, Guarding, Rebound, Tender (Right lower quadrant), Hernia (Umbilical). No: Rigid, Mass, Hepatomegaly, Splenomegaly (Male) Exam: No Hernia, Normal Inspection Rectal (Males) Exam: Deferred Back Exam: Normal Inspection Extremities: Normal Inspection, Non-Tender, No Pedal Edema Peripheral Pulses: 4+: Posterior Tibial (L), Posterior Tibial (R), Dorsalis Pedis (L), Dorsalis Pedis (R) Skin: Warm, Dry, Intact Neurological: Cranial Nerves Intact Neuro Extensive - Mental Status: Alert, Oriented x3, Normal Mood/Affect, Normal Cognition Psychiatric: Alert, Normal Affect, Normal Mood - Patient Data Lab Results Last 24 hrs: Laboratory Results - last 24 hr 05/18/17 05/18/17 05/18/17 Range/Units 08:47 08:47 08:47 WBC 16.72 H (4.0-11.0) K/uL RBC 5.12 (4.50-5.90) M/uL Hgb 15.6 (13.0-17.0) g/dL Hct 46.9 (38.0-50.0) % MCV 91.6 (80.0-98.0) fL MCH 30.5 (27.0-32.0) pg MCHC 33.3 (31.0-37.0) g/dL RDW Std Deviation 51.7 (28.0-62.0) fl RDW Coeff of Jeanette 15 (11.0-15.0) % Plt Count 190 (150-400) K/uL MPV 10.40 (7.40-12.00) fL Neut % (Auto) 84.4 H (48.0-80.0) % Lymph % (Auto) 8.6 L (16.0-40.0) % [place] % (Auto) 5.7 (0.0-15.0) % Eos % (Auto) 1.0 (0.0-7.0) % Baso % (Auto) 0.3 (0.0-1.5) % Neut # (Auto) 14.1 H (1.4-5.7) K/uL Lymph # (Auto) 1.4 (0.6-2.4) K/uL [place] # (Auto) 1.0 H (0.0-0.8) K/uL Eos # (Auto) 0.2 (0.0-0.7) K/uL Baso # (Auto) 0.1 (0.0-0.1) K/uL Nucleated RBC % 0.0 /100WBC Nucleated RBCs # 0 K/uL Sodium 139 (136-146) mmol/L Potassium 4.1 (3.5-5.1) mmol/L Chloride 106 (98-110) mmol/L Carbon Dioxide 26 (21-31) mmol/L BUN 18 (6.0-23.0) mg/dL Creatinine 1.0 (0.6-1.5) mg/dL Est Cr Clr Drug Dosing 74.01 mL/min Estimated GFR (MDRD) > 60.0 ml/min Glucose 118 H (60-110) mg/dL Calcium 8.9 (8.8-10.8) mg/dL Total Bilirubin 1.8 H (0.1-1.5) mg/dL AST 23 (5-40) IU/L ALT 19 (8-54) IU/L Alkaline Phosphatase 64 (40-150) Troponin I < 0.10 (0.0-0.29) NG/ML Total Protein 6.8 (6.0-8.0) g/dL Albumin 4.0 (3.4-4.8) g/dL Globulin 2.8 (2.0-3.5) g/dL Albumin/Globulin Ratio 1.4 (1.3-2.8) Amylase (10-90) U/L Lipase (7-80) U/L Urine Color Urine Appearance Urine pH (5.0-8.0) Ur Specific [place] (1.001-1.035) Urine Protein (NEGATIVE) mg/dL Urine Glucose (UA) (NEGATIVE) mg/dL Urine Ketones (NEGATIVE) mg/dL Urine Occult Blood (NEGATIVE) Urine Nitrite (NEGATIVE) Urine Bilirubin (NEGATIVE) Urine Urobilinogen (<2.0) EU/dL Ur Leukocyte Esterase (NEGATIVE) Urine RBC (0-2/HPF) Urine WBC (0-5/HPF) Ur Epithelial Cells (NONE-FEW) Urine Bacteria (NEGATIVE) Urine Mucus (NONE-MOD) 05/18/17 05/18/17 Range/Units 09:49 10:30 WBC (4.0-11.0) K/uL RBC (4.50-5.90) M/uL Hgb (13.0-17.0) g/dL Hct (38.0-50.0) % MCV (80.0-98.0) fL MCH (27.0-32.0) pg MCHC (31.0-37.0) g/dL RDW Std Deviation (28.0-62.0) fl RDW Coeff of Jeanette (11.0-15.0) % Plt Count (150-400) K/uL MPV (7.40-12.00) fL Neut % (Auto) (48.0-80.0) % Lymph % (Auto) (16.0-40.0) % [place] % (Auto) (0.0-15.0) % Eos % (Auto) (0.0-7.0) % Baso % (Auto) (0.0-1.5) % Neut # (Auto) (1.4-5.7) K/uL Lymph # (Auto) (0.6-2.4) K/uL [place] # (Auto) (0.0-0.8) K/uL Eos # (Auto) (0.0-0.7) K/uL Baso # (Auto) (0.0-0.1) K/uL Nucleated RBC % /100WBC Nucleated RBCs # K/uL Sodium (136-146) mmol/L Potassium (3.5-5.1) mmol/L Chloride (98-110) mmol/L Carbon Dioxide (21-31) mmol/L BUN (6.0-23.0) mg/dL Creatinine (0.6-1.5) mg/dL Est Cr Clr Drug Dosing mL/min Estimated GFR (MDRD) ml/min Glucose (60-110) mg/dL Calcium (8.8-10.8) mg/dL Total Bilirubin (0.1-1.5) mg/dL AST (5-40) IU/L ALT (8-54) IU/L Alkaline Phosphatase (40-150) Troponin I (0.0-0.29) NG/ML Total Protein (6.0-8.0) g/dL Albumin (3.4-4.8) g/dL Globulin (2.0-3.5) g/dL Albumin/Globulin Ratio (1.3-2.8) Amylase 56 (10-90) U/L Lipase 22 (7-80) U/L Urine Color YELLOW Urine Appearance CLEAR Urine pH 6.0 (5.0-8.0) Ur Specific [place] 1.015 (1.001-1.035) Urine Protein TRACE (NEGATIVE) mg/dL Urine Glucose (UA) NEGATIVE (NEGATIVE) mg/dL Urine Ketones NEGATIVE (NEGATIVE) mg/dL Urine Occult Blood NEGATIVE (NEGATIVE) Urine Nitrite NEGATIVE (NEGATIVE) Urine Bilirubin NEGATIVE (NEGATIVE) Urine Urobilinogen 0.2 (<2.0) EU/dL Ur Leukocyte Esterase NEGATIVE (NEGATIVE) Urine RBC 0-1 (0-2/HPF) Urine WBC 0-1 (0-5/HPF) Ur Epithelial Cells RARE (NONE-FEW) Urine Bacteria RARE (NEGATIVE) Urine Mucus LIGHT (NONE-MOD) Result Diagrams: 05/18/17 08:47 05/18/17 08:47 *Q Meaningful Use (ADM) - VTE *Q VTE Criteria *Q: - Stroke *Q Stroke Criteria *Q: - AMI *Q AMI Criteria *Q: - Problem List (1) Right lower quadrant pain SNOMED Code(s): 639766088 ICD Code: R10.31 - RIGHT LOWER QUADRANT PAIN Status: Acute Priority: High Current Visit: Yes (2) Acute appendicitis SNOMED Code(s): 00219911 ICD Code: K35.80 - UNSPECIFIED ACUTE APPENDICITIS Status: Acute Priority : High Current Visit: Yes Problem List Initiated/Reviewed/Updated: Yes Orders Last 24hrs: Active Orders 24 hr Category Date Time Status Admission Status [Patient Status] [ADT] Stat ADT 05/18/17 11:15 Active Antiembolic Devices [RC] PER UNIT ROUTINE Care 05/18/17 11:40 Ordered EKG Documentation Completion [RC] STAT Care 05/18/17 08:41 Active [place] Catheter Insertion [Insert Urinary Catheter] [OM. Care 05/18/17 11:45 Ordered PC] Q24H Oxygen Therapy [RC] PRN Care 05/18/17 11:38 Ordered Pulse Oximetry [RC] INTERMITTENT Care 05/18/17 11:38 Ordered Skin Preparation [RC] .PREOP Care 05/18/17 11:39 Ordered Urinary Catheter Assessment [RC] ASDIRECTED Care 05/18/17 11:39 Ordered Urinary Catheter Assessment [RC] ASDIRECTED Care 05/18/17 11:40 Ordered Nothing Per Oral Diet [DIET] Diet 05/18/17 Breakfast Ordered Abdomen Pelvis w wo Cont [CT] Stat Exams 05/18/17 08:42 Taken CULTURE BLOOD [BC] Stat Lab 05/18/17 11:17 Ordered CULTURE BLOOD [BC] Stat Lab 05/18/17 11:17 Ordered Lactated Ringers @ 125 MLS/HR(1000ml) Med 05/18/17 11:45 Ordered Lactated Ringers [Ringers, Lactated] 1,000 ml IV ASDIRECTED cefOXitin [Mefoxin in Dextrose,Iso-Osm 2 GM/50 ML] 2 gm Med 05/18/17 11:39 Ordered Premix Bag 1 bag IV ONETIME Antiembolic Hose [OM.PC] PER UNIT ROUTINE Oth 05/18/17 06:00 Ordered Antiembolic Hose [OM.PC] PER UNIT ROUTINE Oth 05/19/17 06:00 Ordered Blood Culture x2 Reflex Set [OM.PC] Stat Ot 05/18/17 11:17 Ordered Sequential Compression Device [OM.PC] Routine Oth 05/18/17 11:38 Ordered Resuscitation Status Routine Resus Stat 05/18/17 11:38 Ordered Assessment/Plan Comment:: Acute appendicitis by physical examination and CT criteria. Laparoscopic appendectomy, possible open appendectomy. Both operative procedures, along with the risks, including, but not limited to, bleeding, infection, pneumonia, deep venous thrombosis, pulmonary emboli, myocardial infarction, and adjacent organ injury have been reviewed with the patient who voices understanding, offers no questions and agrees to proceed.
--- NOTE | 2017-05-18 11:46 | CT ---
EXAM DATE: 05/18/17 PATIENT'S AGE: 66 Patient: LORI PANDA Facility: [place], [place] Site . Site : 1950 Study: CT Abdomen/Pelvis W/ and W/O Cont [id number]/27/2017 10:32:06 AM Ordering Physician: Doctor Weems Final Report: INDICATION: RLQ and Back Pain TECHNIQUE: CT abdomen and pelvis acquired without and with IV contrast. COMPARISON: None FINDINGS: Lower chest: Scarring/atelectasis. Scattered calcified granulomata. . Liver: Unremarkable. Spleen: Scattered calcified granulomata. . Pancreas: Unremarkable. Gallbladder and bile ducts: Unremarkable. Kidneys: Bilateral renal cysts the largest in the midpole of the right kidney measuring 2.9 x 2.4 cm. Adrenal glands: Unremarkable. GI tract: Small hiatal hernia. Dilated fluid filled appendix measuring up to 15 mm with circumferential wall thickening and periappendiceal stranding. No evidence of perforation or abscess formation. . Vascular structures: Atherosclerotic disease. No sign of aneurysm. Lymph nodes: Unremarkable. Miscellaneous: Left periumbilical fat containing hernia. No free air or significant free fluid. Pelvic Organs: Enlarged prostate. Bones: Degenerative changes. IMPRESSION: 1. Acute appendicitis with no evidence of perforation or abscess formation. 2. Enlarged prostate. Please correlate with PSA levels. The results called to Dr. Rose at 1110 hours on May 18, 2017 Dictated by Mitesh Tadeo MD @ 05/18/2017 11:09:24 AM Dictated by: Mitesh Tadeo MD @ 05/18/2017 11:11:25 (Electronic Signature) Report Signed by Proxy. [facility]
--- NOTE | 2017-05-18 12:06 | PCM.PREANE ---
Preanesthetic Assessment - Procedure Proposed Procedure: Laparoscopic appendectomy - Anesthesia/Transfusion/Family Hx Anesthesia History: Prior Anesthesia Without Reaction Family History of Anesthesia Reaction: No Transfusion History: No Prior Transfusion(s) Intubation History: Unknown Additional History: Cholecystectomy for gangrenous gall bladder - 1 yr ago. NC x 3 per patient. COPD - 50+ pk yrs of smoking (stopped 4 yr ago). Dyspnea on stair climbing. 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) Other: Reports: None - Physical Assessment NPO Status Date: 05/17/17 NPO Status Time: 23:00 O2 Sat by Pulse Oximetry: 94 Respiratory Rate: 14 Vital Signs: Last Vital Signs Temp 97.7 F 05/18/17 10:21 Pulse 62 05/18/17 10:21 Resp 14 05/18/17 10:21 BP 123/70 05/18/17 10:21 Pulse Ox 94 L 05/18/17 10:21 Height: 5 ft 10 in Weight: 220 lb ASA Class: 3E Mental Status: Alert & Oriented x3 Airway Class: Mallampati = 1 Dentition: Reports: Normal Dentition Thyro-Mental Finger Breadths: 3 Mouth Opening Finger Breadths: 3 ROM/Head Extension: Full Lungs: Clear to Auscultation, Other (accessory muscle efforts for big breath) Cardiovascular: Regular Rate, Regular Rhythm, No Murmurs - Lab Values: Laboratory Last Values WBC 16.72 K/uL (4.0-11.0) H 05/18/17 08:47 RBC 5.12 M/uL (4.50-5.90) 05/18/17 08:47 Hgb 15.6 g/dL (13.0-17.0) 05/18/17 08:47 Hct 46.9 % (38.0-50.0) 05/18/17 08:47 MCV 91.6 fL (80.0-98.0) 05/18/17 08:47 MCH 30.5 pg (27.0-32.0) 05/18/17 08:47 MCHC 33.3 g/dL (31.0-37.0) 05/18/17 08:47 RDW Std Deviation 51.7 fl (28.0-62.0) 05/18/17 08:47 RDW Coeff of Jeanette 15 % (11.0-15.0) 05/18/17 08:47 Plt Count 190 K/uL (150-400) 05/18/17 08:47 MPV 10.40 fL (7.40-12.00) 05/18/17 08:47 Neut % (Auto) 84.4 % (48.0-80.0) H 05/18/17 08:47 Lymph % (Auto) 8.6 % (16.0-40.0) L 05/18/17 08:47 [place] % (Auto) 5.7 % (0.0-15.0) 05/18/17 08:47 Eos % (Auto) 1.0 % (0.0-7.0) 05/18/17 08:47 Baso % (Auto) 0.3 % (0.0-1.5) 05/18/17 08:47 Neut # (Auto) 14.1 K/uL (1.4-5.7) H 05/18/17 08:47 Lymph # (Auto) 1.4 K/uL (0.6-2.4) 05/18/17 08:47 [place] # (Auto) 1.0 K/uL (0.0-0.8) H 05/18/17 08:47 Eos # (Auto) 0.2 K/uL (0.0-0.7) 05/18/17 08:47 Baso # (Auto) 0.1 K/uL (0.0-0.1) 05/18/17 08:47 Nucleated RBC % 0.0 /100WBC 05/18/17 08:47 Nucleated RBCs # 0 K/uL 05/18/17 08:47 Sodium 139 mmol/L (136-146) 05/18/17 08:47 Potassium 4.1 mmol/L (3.5-5.1) 05/18/17 08:47 Chloride 106 mmol/L (98-110) 05/18/17 08:47 Carbon Dioxide 26 mmol/L (21-31) 05/18/17 08:47 BUN 18 mg/dL (6.0-23.0) 05/18/17 08:47 Creatinine 1.0 mg/dL (0.6-1.5) 05/18/17 08:47 Est Cr Clr Drug Dosing 74.01 mL/min 05/18/17 08:47 Estimated GFR (MDRD) > 60.0 ml/min 05/18/17 08:47 Glucose 118 mg/dL (60-110) H 05/18/17 08:47 Calcium 8.9 mg/dL (8.8-10.8) 05/18/17 08:47 Total Bilirubin 1.8 mg/dL (0.1-1.5) H 05/18/17 08:47 AST 23 IU/L (5-40) 05/18/17 08:47 ALT 19 IU/L (8-54) 05/18/17 08:47 Alkaline Phosphatase 64 (40-150) 05/18/17 08:47 Troponin I < 0.10 NG/ML (0.0-0.29) 05/18/17 08:47 Total Protein 6.8 g/dL (6.0-8.0) 05/18/17 08:47 Albumin 4.0 g/dL (3.4-4.8) 05/18/17 08:47 Globulin 2.8 g/dL (2.0-3.5) 05/18/17 08:47 Albumin/Globulin Ratio 1.4 (1.3-2.8) 05/18/17 08:47 Amylase 56 U/L (10-90) 05/18/17 09:49 Lipase 22 U/L (7-80) 05/18/17 09:49 Urine Color YELLOW 05/18/17 10:30 Urine Appearance CLEAR 05/18/17 10:30 Urine pH 6.0 (5.0-8.0) 05/18/17 10:30 Ur Specific Steele 1.015 (1.001-1.035) 05/18/17 10:30 Urine Protein TRACE mg/dL (NEGATIVE) 05/18/17 10:30 Urine Glucose (UA) NEGATIVE mg/dL (NEGATIVE) 05/18/17 10:30 Urine Ketones NEGATIVE mg/dL (NEGATIVE) 05/18/17 10:30 Urine Occult Blood NEGATIVE (NEGATIVE) 05/18/17 10:30 Urine Nitrite NEGATIVE (NEGATIVE) 05/18/17 10:30 Urine Bilirubin NEGATIVE (NEGATIVE) 05/18/17 10:30 Urine Urobilinogen 0.2 EU/dL (<2.0) 05/18/17 10:30 Ur Leukocyte Esterase NEGATIVE (NEGATIVE) 05/18/17 10:30 Urine RBC 0-1 (0-2/HPF) 05/18/17 10:30 Urine WBC 0-1 (0-5/HPF) 05/18/17 10:30 Ur Epithelial Cells RARE (NONE-FEW) 05/18/17 10:30 Urine Bacteria RARE (NEGATIVE) 05/18/17 10:30 Urine Mucus LIGHT (NONE-MOD) 05/18/17 10:30 - Allergies Allergies/Adverse Reactions: Allergies Allergy/AdvReac Type Severity Reaction Status Date / Time No Known Allergies Allergy Verified 05/18/17 08:53 - Blood Blood Available: No Product(s) Available: None - Anesthesia Plan Free Text/Narrative:: Probable pump problems; may need pressors to get through operative procedure and anesthetic. Beta Guido: Metoprolol Med Last Dose Date: 05/17/17 Med Last Dose Time: 08:00 - Acknowledgements Anesthesia Type Planned: General Anesthesia Pt an Appropriate Candidate for the Planned Anesthesia: Yes Alternatives and Risks of Anesthesia Discussed w Pt/Guardian: Yes Pt/Guardian Understands and Agrees with Anesthesia Plan: Yes Additional Comments: Risks and benefits discussed by APPLIANCE REPAIR TECHNICIAN, patient and spouse. PreAnesthesia Questionnaire - Past Health History Medical/Surgical History: Denies Medical/Surgical History Cardiovascular History: Reports: High Cholesterol, Hypertension, [place], Stents Other Cardiovascular History: 3 heart attacks, 3 stents Respiratory History: Reports: COPD Musculoskeletal History: Reports: Arthritis, Back Pain, Chronic - Infectious Disease History Infectious Disease History: Reports: Chicken Pox, Measles, Mumps - Past Surgical History GI Surgical History: Reports: Cholecystectomy, Hernia, Abdominal (Umbilical) - SUBSTANCE USE Smoking Status *Q: Former Smoker Tobacco Use Within Last Twelve Months: No Second Hand Smoke Exposure: No Days Per Week of Alcohol Use: 0 Recreational Drug Use History: No - HOME MEDS Home Medications: Home Meds Clopidogrel Bisulfate [Clopidogrel] 75 mg PO QAM 02/07/17 [History] Diclofenac Sodium [IMW: Diclofenac Sodium] 75 mg PO BIDMEALS PRN 02/07/17 [ History] Lisinopril 2.5 mg PO DAILY 02/07/17 [History] Metoprolol Succinate [Toprol XL] 25 mg PO DAILY 02/07/17 [History] Sertraline HCl 50 mg PO QAM 02/07/17 [History] Cyanocobalamin (Vitamin B-12) [Cyanocobalamin Injection] 1,000 mcg IJ Q14D 05/18 [History] Nitroglycerin [Nitrostat] 0.4 mg SL Q5M PRN 05/18/17 [History] - CURRENT (IN HOUSE) MEDS Current Meds: Current Medications Lactated Ringer's (Ringers, Lactated) 1,000 mls @ 125 mls/hr IV ASDIRECTED LORNE Cefoxitin Sodium 2 gm/ Premix 50 mls @ 100 mls/hr IV ONETIME ONE Stop: 05/18/17 12:08 Discontinued Medications Bupivacaine HCl (Marcaine 0.5%) Confirm Administered Dose 30 ml .ROUTE .STK-MED ONE Stop: 05/18/17 11:38 Cefazolin Sodium (Ancef) Confirm Administered Dose 1 gm .ROUTE .STK-MED ONE Stop: 05/18/17 11:38 Fentanyl (Sublimaze) Confirm Administered Dose 250 mcg .ROUTE .STK-MED ONE Stop: 05/18/17 11:42 Sodium Chloride (Normal Saline) 1,000 mls @ 999 mls/hr IV STAT ONE Stop: 05/18/17 09:40 Last Admin: 05/18/17 08:55 Dose: 999 mls/hr Iopamidol (Isovue Multipack-370 (76%)) 100 ml IVPUSH ONETIME STA Stop: 05/18/17 10:18 Last Admin: 05/18/17 10:33 Dose: 100 ml Lidocaine (Xylocaine-Mpf 2%) Confirm Administered Dose 5 ml .ROUTE .STK-MED ONE Stop: 05/18/17 11:42 Midazolam HCl (Versed 1 Mg/Ml) Confirm Administered Dose 2 mg .ROUTE .STK-MED ONE Stop: 05/18/17 11:42 Morphine Sulfate (Morphine) 2 mg IV ONETIME ONE Stop: 05/18/17 11:14 Ondansetron HCl (Zofran) 8 mg IVPUSH ONETIME ONE Stop: 05/18/17 08:41 Last Admin: 05/18/17 08:55 Dose: 8 mg Ondansetron HCl (Zofran) Confirm Administered Dose 4 mg .ROUTE .STK-MED ONE Stop: 05/18/17 11:42 Propofol (Diprivan 20 Ml) Confirm Administered Dose 200 mg .ROUTE .STK-MED ONE Stop: 05/18/17 11:42 Rocuronium Gallant (Zemuron) Confirm Administered Dose 50 mg .ROUTE .STK-MED ONE Stop: 05/18/17 11:42 Succinylcholine Chloride (Succinylcholine In Ns Pf) Confirm Administered Dose 200 mg .ROUTE .STK-MED ONE Stop: 05/18/17 11:42
[2017-05-18] MEDS ORDERED: Etomidate 2 MG/ML 20 ML SDV IVPUSH ONE (12:07)
[2017-05-18] MEDS ORDERED: cefOXitin 1 GM Vial ONE (12:15)
[2017-05-18] MEDS ORDERED: Sodium Chloride 0.9% 20 ML ONE (12:15)
[2017-05-18] MEDS ORDERED: ePHEDrine 50 MG/ML SDV ONE (12:18)
[2017-05-18] MEDS ORDERED: Phenylephrine/Normal Saline 100 MCG/ML 10 ML Syringe ONE (12:21)
[2017-05-18] MEDS ORDERED: fentaNYL 100 MCG/2 ML SDV IVPUSH PRN (12:28)
[2017-05-18] MEDS ORDERED: Albuterol/Ipratropium 3.0-0.5 MG/3 ML Neb Soln NEB ONE (12:40)
[2017-05-18] MEDS ORDERED: fentaNYL 100 MCG/2 ML SDV ONE (12:55)
[2017-05-18] MEDS ORDERED: Ondansetron 4 MG/2 ML SDV IVPUSH PRN (13:13)
[2017-05-18] MEDS ORDERED: Morphine 10 MG/ML Syringe IVPUSH PRN (13:13)
[2017-05-18] MEDS ORDERED: Acetaminophen/HYDROcodone 325-5 MG Tab PO PRN (13:13)
[2017-05-18] MEDS ORDERED: cefOXitin 1 GM in Premix Bag 1 BAG IV SCH (13:15)
[2017-05-18] MEDS ORDERED: Nitroglycerin 0.4 MG Tab.SL SL PRN (13:18)
[2017-05-18] MEDS ORDERED: Diclofenac Sodium 75 MG Tab.EC PO PRN (13:18)
[2017-05-18] MEDS ORDERED: Albuterol/Ipratropium 3.0-0.5 MG/3 ML Neb Soln NEB PRN ×2 (13:19→13:21)
--- NOTE | 2017-05-18 13:24 | PCM.OPNOTE ---
- General Post-Op/Procedure Note Date of Surgery/Procedure: 05/18/17 Pre Op Diagnosis: Right lower quadrant pain. Acute appendicitis by physical exam and CT. Post-Op Diagnosis: Acute gangrenous appendicitis Anesthesia Technique: General ET Tube (ASA IIIE) Primary Surgeon: Boby Carlisle Fluid Replacement, Intraop: 1,100 Output, Urine Amount: 75 EBL in mLs: 20 Condition: Fair Free Text/Narrative:: Dictation [id number]. CPT CODE 50713
--- NOTE | 2017-05-18 14:13 | PCM.POSTAN ---
POST ANESTHESIA ASSESSMENT - MENTAL STATUS Mental Status: Somnolent - RESPIRATORY Respiratory Status: Airway Patent, Supplemental Oxygen Free Text/Narrative:: to ICU -on bipap for resp distress post op - CARDIOVASCULAR CV Status: Pulse Rate WNL, Blood Pressure Stable - GASTROINTESTINAL GI Status: No Symptoms - POST OP HYDRATION Hydration Status: Adequate & Stable
[2017-05-18] MEDS: Lactated Ringers 1,000 ML IV SCH ×2 (14:30→20:38)
--- NOTE | 2017-05-18 14:44 | OR ---
SURGEON: Boby Carlisle M.D. DATE OF PROCEDURE: 05/18/2017 OPERATION PERFORMED: Laparoscopic appendectomy. ANESTHESIA: General endotracheal. ASA CLASSIFICATION: IIIE. PREOPERATIVE DIAGNOSIS: Acute abdomen, right lower quadrant pain. POSTOPERATIVE DIAGNOSIS: Acute gangrenous appendicitis without perforation. ESTIMATED BLOOD LOSS: 20 mL. INTRAOPERATIVE FLUID REPLACEMENT: 1100 mL of crystalloid. DESCRIPTION OF PROCEDURE: The patient was taken to the operating room and placed on the operating table in the supine position. Time-out was called for appropriate identification of the patient and procedure. Sequential compression boots were placed. Following satisfactory attainment of general endotracheal anesthesia, the abdomen was prepped with DuraPrep solution. Sterile drapes were applied. Bolaños catheter was placed prior to prepping the patient. Once the abdomen was prepped with DuraPrep solution and sterile drapes were applied, the skin just above the umbilicus was infiltrated with 0.5% Marcaine solution. The skin incision was made and deepened through the subcutaneous tissue obtaining hemostasis with the use of electrocautery. Veress needle was introduced into the peritoneal cavity. The saline drop test was positive. Carbon dioxide pneumoperitoneum was established with a release set at 13 cm of water. Once we had a satisfactory pneumoperitoneum, a 12 mm suprapubic port was placed after infiltrating the skin with 0.5% Marcaine solution. The patient was now positioned with his head down and rolled to the left. Under camera vision, a 5 mm left lower quadrant port was also placed. Again, the skin was infiltrated with 0.5% Marcaine solution. The appendix was stuck to the right lower quadrant and the adhesions were taken down with a Harmonic scalpel. The mesoappendix was then taken down with a Harmonic scalpel. The appendix was acutely inflamed and gangrenous in appearance, although there was no perforation and no purulent material present. Once the mesoappendix had been completely taken down, the base of the appendix was stapled with the Endo-CHRISTIN stapler and blue load. The appendix was properly placed in an Endopouch. The right lower quadrant was then irrigated with sterile saline solution. All fluid was aspirated. The Endopouch containing appendix and 12 mm suprapubic ports were removed. The abdomen was again inspected for hemostasis and there was no significant bleeding. Under camera vision, the left lower quadrant port was removed and finally, the supraumbilical camera and port were removed. The wounds were inspected for hemostasis and small bleeding sites were electrocoagulated. The supraumbilical and suprapubic ports were closed in 2 layers approximating the subcutaneous tissue with 3-0 Polysorb and the skin with subcuticular 4-0 Monocryl. The left lower quadrant port was closed with subcuticular 4-0 Monocryl. All incisions were Steri- Stripped and dressed with sterile Tegaderm pads. Sponge, needle, and instrument counts were all correct. The patient tolerated the procedure well. Following emergence from anesthesia and extubation, the patient was taken to recovery room in stable condition. The Bolaños catheter was removed prior to emergence from anesthesia. LELIA / FRANCI /[id number] MTDD
--- NOTE | 2017-05-18 14:56 | PCM.CONS ---
H&P History of Present Illness - General Date of Service: 05/18/17 Admit Problem/Dx: Admission Diagnosis/Problem Source of Information: Patient History Limitations: Reports: Other (bipap) - History of Present Illness Initial Comments - Free Text/Narative: 66 yo male with history of COPD, CAD s/p stent, HTN, s/p lap appendectomy. He was in respiratory distress after surgery with oxygen saturation 80's . He was placed on BIPAP FIO2 50 -60% and transferred to ICU. He has a chronic history of low oxygen saturation around 89%. He is not home oxygen. He is a heavy smoker for 45 years. right lower abdominal Pain Score (Numeric/FACES): 5 - Related Data Allergies/Adverse Reactions: Allergies Allergy/AdvReac Type Severity Reaction Status Date / Time No Known Allergies Allergy Verified 05/18/17 08:53 Home Medications: Home Meds Clopidogrel Bisulfate [Clopidogrel] 75 mg PO QAM 02/07/17 [History] Diclofenac Sodium [IMW: Diclofenac Sodium] 75 mg PO BIDMEALS PRN 02/07/17 [ History] Lisinopril 2.5 mg PO DAILY 02/07/17 [History] Metoprolol Succinate [Toprol XL] 25 mg PO DAILY 02/07/17 [History] Sertraline HCl 50 mg PO QAM 02/07/17 [History] Cyanocobalamin (Vitamin B-12) [Cyanocobalamin Injection] 1,000 mcg IJ Q14D 05/18 [History] Nitroglycerin [Nitrostat] 0.4 mg SL Q5M PRN 05/18/17 [History] Past Medical History - Past Health History Medical/Surgical History: Denies Medical/Surgical History Cardiovascular History: Reports: High Cholesterol, Hypertension, [place], Stents Other Cardiovascular History: 3 heart attacks, 3 stents Respiratory History: Reports: COPD Musculoskeletal History: Reports: Arthritis, Back Pain, Chronic - Infectious Disease History Infectious Disease History: Reports: Chicken Pox, Measles, Mumps - Past Surgical History GI Surgical History: Reports: Cholecystectomy, Hernia, Abdominal (Umbilical) Social & Family History - Family History Family Medical History: Noncontributory - Tobacco Use Smoking Status *Q: Former Smoker Years of Tobacco use: 45 Used Tobacco, but Quit: Yes Month Tobacco Last Used: not applicable Second Hand Smoke Exposure: No - Caffeine Use Caffeine Use: Reports: Coffee Caffeine Use Comment: 3-4cups/day - Alcohol Use Days Per Week of Alcohol Use: 0 - Recreational Drug Use Recreational Drug Use: No H&P Review of Systems - Review of Systems: Review Of Systems: See Below General: Reports: No Symptoms HEENT: Reports: No Symptoms Pulmonary: Reports: Shortness of Breath Cardiovascular: Reports: No Symptoms Gastrointestinal: Reports: Abdominal Pain, Other (s/p surgery) Genitourinary: Reports: No Symptoms Musculoskeletal: Reports: No Symptoms Skin: Reports: No Symptoms Psychiatric: Reports: No Symptoms Neurological: Reports: No Symptoms Exam - Exam Exam: See Below - Vital Signs Vital Signs: Last Vital Signs Temp 97.7 F 05/18/17 10:21 Pulse 104 H 05/18/17 13:12 Resp 28 H 05/18/17 13:12 BP 123/80 05/18/17 13:12 Pulse Ox 96 05/18/17 13:12 Weight: 99.79 kg - Exam Quality Assessment: Other (bipap) General: Alert, Oriented HEENT: Conjunctiva Clear, EOMI Neck: Supple, Trachea Midline Lungs: Clear to Auscultation, Normal Respiratory Effort Cardiovascular: Regular Rate, Regular Rhythm - Patient Data Result Diagrams: 05/18/17 08:47 05/18/17 08:47 Consult PN Assessment/Plan Procedures: Procedures ASSAY OF AMYLASE (02/08/17) ASSAY OF CREATININE (04/24/17) ASSAY OF LIPASE (02/08/17) ASSAY OF TROPONIN QUANT (02/08/17) CARDIAC REHAB/MONITOR (12/02/16) CHEST X-RAY 1 VIEW FRONTAL (02/08/17) CO/MEMBANE DIFFUSE CAPACITY (01/02/15) COMPLETE CBC W/AUTO DIFF WBC (02/08/17) COMPREHEN METABOLIC PANEL (02/08/17) CRITICAL CARE ADDL 30 MIN (05/03/14) CRITICAL CARE FIRST HOUR (05/03/14) CT HEAD/BRAIN W/O DYE (02/08/17) ELECTROCARDIOGRAM TRACING (02/08/17) EMERGENCY DEPT VISIT (02/08/17) EMERGENCY DEPT VISIT (05/03/14) EVALUATION OF WHEEZING (01/02/15) EXTREMITY STUDY (07/04/16) GLUCOSE BLOOD TEST (02/08/17) HYDRATE IV INFUSION ADD-ON (02/08/17) METABOLIC PANEL TOTAL CA (02/08/17) MRI LUMBAR SPINE W/O DYE (01/25/17) MRI LWR EXTREMITY W/O&W/DYE (04/24/17) PROTHROMBIN TIME (02/08/17) PULM FUNCTION TEST BY GAS (01/02/15) ROUTINE VENIPUNCTURE (04/24/17) THER/PROPH/DIAG INJ IV PUSH (02/08/17) TX/PRO/DX INJ NEW DRUG ADDON (02/08/17) URINALYSIS AUTO W/SCOPE (02/08/17) URINE CULTURE/COLONY COUNT (02/08/17) Problem List Initiated/Reviewed/Updated: Yes Plan: 66 yo male with copd, CAD s/p lap appendectomy today: contiue BIPAP: decreased FIO2 to 45 %: saturations 98%. will slowly and carefully wean off BIPAP as tolerated. Duoneb q 6 hours scheduled. Duoneb q 4 hrs prn. Pain Control: morphine, norco, volatren Requesting Provider: dia mcrae Date Consult Requested: 05/18/17 Patient History Reviewed: Yes Admission H&P Reviewed: Yes
[2017-05-18] MEDS: Metoprolol Succinate 25 MG Tab.ER PO SCH (15:02)
[2017-05-18] MEDS: Lisinopril 5 MG Tab PO SCH (15:02)
[2017-05-18] MEDS: Albuterol/Ipratropium 3.0-0.5 MG/3 ML Neb Soln NEB SCH (17:03)
[2017-05-18] MEDS: cefOXitin 1 GM in Premix Bag 1 BAG IV SCH (20:07)
[2017-05-19] MEDS: Albuterol/Ipratropium 3.0-0.5 MG/3 ML Neb Soln NEB SCH ×3 (00:15→11:45)
[2017-05-19] MEDS: cefOXitin 1 GM in Premix Bag 1 BAG IV SCH ×2 (04:19→11:00)
[2017-05-19] MEDS: Lactated Ringers 1,000 ML IV SCH (04:21)
[2017-05-19 05:38] LABS: CHLORIDE,CL 108 mmol/L (98-110); SODIUM,NA 142 mmol/L (136-146)
[2017-05-19] MEDS: Lisinopril 5 MG Tab PO SCH (08:21)
[2017-05-19] MEDS: Metoprolol Succinate 25 MG Tab.ER PO SCH (08:22)
[2017-05-19] MEDS ORDERED: Clopidogrel 75 MG Tab PO SCH (09:00)
[2017-05-19] MEDS ORDERED: Sertraline 50 MG Tab PO SCH (09:00)
--- NOTE | 2017-05-19 09:06 | PCM.CONSN ---
<Aruna Troy - Last Filed: 05/19/17 11:41> - General Info Date of Service: 05/19/17 Subjective Update: weaned off bipap. On 1 liter NC saturations 91-92%. Functional Status: Reports: Pain Controlled, Tolerating Diet, Urinating - Review of Systems General: Reports: No Symptoms HEENT: Reports: No Symptoms Pulmonary: Reports: Shortness of Breath (improved) Cardiovascular: Reports: No Symptoms Gastrointestinal: Reports: No Symptoms, Other Genitourinary: Reports: No Symptoms Musculoskeletal: Reports: No Symptoms Skin: Reports: No Symptoms Neurological: Reports: No Symptoms Psychiatric: Reports: No Symptoms - Patient Data Vitals - Most Recent: Last Vital Signs Temp 98.7 F 05/19/17 08:00 Pulse 73 05/19/17 08:22 Resp 18 05/19/17 08:00 BP 108/52 L 05/19/17 08:22 Pulse Ox 91 L 05/19/17 08:00 Weight - Most Recent: 99.79 kg I&O - Last 24 Hours: Intake & Output 05/18/17 05/19/17 05/19/17 22:59 06:59 14:59 Intake Total 1050 2050 Output Total 0 1400 Balance 1050 650 Lab Results Last 24 Hours: Laboratory Results - last 24 hr 05/19/17 05/19/17 Range/Units 05:02 05:02 WBC 10.88 (4.0-11.0) K/uL RBC 4.59 (4.50-5.90) M/uL Hgb 14.0 (13.0-17.0) g/dL Hct 42.4 (38.0-50.0) % MCV 92.4 (80.0-98.0) fL MCH 30.5 (27.0-32.0) pg MCHC 33.0 (31.0-37.0) g/dL RDW Std Deviation 53.0 (28.0-62.0) fl RDW Coeff of Jeanette 16 H (11.0-15.0) % Plt Count 191 (150-400) K/uL MPV 10.50 (7.40-12.00) fL Neut % (Auto) 74.1 (48.0-80.0) % Lymph % (Auto) 16.7 (16.0-40.0) % Carlton % (Auto) 7.8 (0.0-15.0) % Eos % (Auto) 1.0 (0.0-7.0) % Baso % (Auto) 0.4 (0.0-1.5) % Neut # (Auto) 8.1 H (1.4-5.7) K/uL Lymph # (Auto) 1.8 (0.6-2.4) K/uL Carlton # (Auto) 0.9 H (0.0-0.8) K/uL Eos # (Auto) 0.1 (0.0-0.7) K/uL Baso # (Auto) 0.0 (0.0-0.1) K/uL Nucleated RBC % 0.0 /100WBC Nucleated RBCs # 0 K/uL Sodium 142 (136-146) mmol/L Potassium 4.1 (3.5-5.1) mmol/L Chloride 108 (98-110) mmol/L Carbon Dioxide 28 (21-31) mmol/L BUN 10 (6.0-23.0) mg/dL Creatinine 1.1 (0.6-1.5) mg/dL Est Cr Clr Drug Dosing 67.29 mL/min Estimated GFR (MDRD) > 60.0 ml/min Glucose 99 (60-110) mg/dL Calcium 8.2 L (8.8-10.8) mg/dL Med Orders - Current: Current Medications Hydrocodone Bitart/Acetaminophen ([place] 325-5 Mg) 1 - 2 tab PO Q4H PRN PRN Reason: Pain (moderate 4-6) Last Admin: 05/18/17 20:38 Dose: 1 tab Albuterol/Ipratropium (Duoneb 3.0-0.5 Mg/3 Ml) 3 ml NEB Q4HRRT PRN PRN Reason: Wheezing Albuterol/Ipratropium (Duoneb 3.0-0.5 Mg/3 Ml) 3 ml NEB Q6HRRT [facility] Last Admin: 05/19/17 07:00 Dose: 3 ml Cyanocobalamin (Vitamin B12) 1,000 mcg IM Q14D [facility] Diclofenac Sodium (Voltaren) 75 mg PO BIDMEALS PRN PRN Reason: Pain Fentanyl (Sublimaze) 50 mcg IVPUSH Q5M PRN PRN Reason: Pain (severe 7-10) Stop: 05/19/17 12:28 Lactated Ringer's (Ringers, Lactated) 1,000 mls @ 125 mls/hr IV ASDIRECTED [facility] Last Admin: 05/19/17 04:21 Dose: 125 mls/hr Cefoxitin Sodium 1 gm/ Premix 50 mls @ 100 mls/hr IV Q8H [facility] Stop: 05/19/17 12:29 Last Admin: 05/19/17 04:19 Dose: 100 mls/hr Lisinopril (Prinivil) 2.5 mg PO DAILY [facility] Last Admin: 05/19/17 08:21 Dose: Not Given Metoprolol Succinate (Toprol Xl) 25 mg PO DAILY [facility] Last Admin: 05/19/17 08:22 Dose: Not Given Morphine Sulfate (Morphine) 0 mg IVPUSH Q1H PRN PRN Reason: Pain (severe 7-10) Nitroglycerin (Nitrostat) 0.4 mg SL Q5M PRN PRN Reason: Chest Pain Ondansetron HCl (Zofran) 4 mg IVPUSH Q6H PRN PRN Reason: Nausea/Vomiting [facility] [place] Last Admin: 05/19/17 08:04 Dose: 50 mg Discontinued Medications Albuterol/Ipratropium (Duoneb 3.0-0.5 Mg/3 Ml) 3 ml NEB ONETIME ONE Stop: 05/18/17 12:41 Last Admin: 05/18/17 13:30 Dose: 3 ml Albuterol/Ipratropium (Duoneb 3.0-0.5 Mg/3 Ml) 3 ml NEB Q6HRRT PRN PRN Reason: Wheezing Bupivacaine HCl (Marcaine 0.5%) Confirm Administered Dose 30 ml .ROUTE .STK-MED ONE Stop: 05/18/17 11:38 Cefazolin Sodium (Ancef) Confirm Administered Dose 1 gm .ROUTE .STK-MED ONE Stop: 05/18/17 11:38 Cefoxitin Sodium (Mefoxin) Confirm Administered Dose 2 gm .ROUTE .STK-MED ONE Stop: 05/18/17 12:16 Clopidogrel Bisulfate (Plavix) 75 mg PO [facility] Ephedrine Sulfate (Ephedrine Sulfate) Confirm Administered Dose 50 mg .ROUTE .STK-MED ONE Stop: 05/18/17 12:19 Etomidate (Amidate) Confirm Administered Dose 40 mg IVPUSH .STK-MED ONE Stop: 05/18/17 12:08 Fentanyl (Sublimaze) Confirm Administered Dose 250 mcg .ROUTE .STK-MED ONE Stop: 05/18/17 11:42 Fentanyl (Sublimaze) Confirm Administered Dose 100 mcg .ROUTE .STK-MED ONE Stop: 05/18/17 12:56 Glycopyrrolate () Confirm Administered Dose 1 mg .ROUTE .STK-MED ONE Stop: 05/18/17 12:20 Sodium Chloride (Normal Saline) 1,000 mls @ 999 mls/hr IV STAT ONE Stop: 05/18/17 09:40 Last Admin: 05/18/17 08:55 Dose: 999 mls/hr Lactated Ringer's (Ringers, Lactated) 1,000 mls @ 125 mls/hr IV ASDIRECTED [facility] Cefoxitin Sodium 2 gm/ Premix 50 mls @ 100 mls/hr IV ONETIME ONE Stop: 05/18/17 12:08 Last Admin: 05/18/17 14:50 Dose: Not Given Sodium Chloride (Normal Saline) Confirm Administered Dose 20 mls @ as directed .ROUTE .STK-MED ONE Stop: 05/18/17 12:16 Cefoxitin Sodium 1 gm/ Premix 50 mls @ 100 mls/hr IV Q8H [facility] Stop: 05/19/17 05:44 Last Admin: 05/18/17 14:51 Dose: Not Given Iopamidol (Isovue Multipack-370 (76%)) 100 ml IVPUSH ONETIME STA Stop: 05/18/17 10:18 Last Admin: 05/18/17 10:33 Dose: 100 ml Lidocaine (Xylocaine-Mpf 2%) Confirm Administered Dose 5 ml .ROUTE .STK-MED ONE Stop: 05/18/17 11:42 Midazolam HCl (Versed 1 Mg/Ml) Confirm Administered Dose 2 mg .ROUTE .STK-MED ONE Stop: 05/18/17 11:42 Morphine Sulfate (Morphine) 2 mg IV ONETIME ONE Stop: 05/18/17 11:14 Last Admin: 05/18/17 13:49 Dose: Not Given Non-Formulary Medication (Cyanocobalamin (Vitamin B-12) [Cyanocobalamin Injection]) 1,000 mcg IJ Q14D [facility] Last Admin: 05/18/17 18:58 Dose: Not Given Ondansetron HCl (Zofran) 8 mg IVPUSH ONETIME ONE Stop: 05/18/17 08:41 Last Admin: 05/18/17 08:55 Dose: 8 mg Ondansetron HCl (Zofran) Confirm Administered Dose 4 mg .ROUTE .STK-MED ONE Stop: 05/18/17 11:42 Phenylephrine HCl (Phenylephrine In Ns 100 Mcg/Ml) Confirm Administered Dose 1 mg .ROUTE .STK-MED ONE Stop: 05/18/17 12:22 Propofol (Diprivan 20 Ml) Confirm Administered Dose 200 mg .ROUTE .STK-MED ONE Stop: 05/18/17 11:42 Rocuronium [place] (Zemuron) Confirm Administered Dose 50 mg .ROUTE .STK-MED ONE Stop: 05/18/17 11:42 Succinylcholine Chloride (Succinylcholine In Ns Pf) Confirm Administered Dose 200 mg .ROUTE .STK-MED ONE Stop: 05/18/17 11:42 - Exam Quality Assessment: Supplemental Oxygen General: Alert, Oriented HEENT: Pupils Equal, EOMI Neck: Supple, Trachea Midline Lungs: Clear to Auscultation, Normal Respiratory Effort Cardiovascular: Regular Rate, Regular Rhythm GI/Abdominal Exam: Normal Bowel Sounds, Soft, Tender (s/p lap surgery) Back Exam: Normal Inspection Extremities: Normal Inspection Skin: Warm, Dry Neurological: No New Focal Deficit Psy/Mental Status: Alert, Normal Affect, Normal Mood Consult PN Assessment/Plan Procedures: Procedures ASSAY OF AMYLASE (02/08/17) ASSAY OF CREATININE (04/24/17) ASSAY OF LIPASE (02/08/17) ASSAY OF TROPONIN QUANT (02/08/17) CARDIAC REHAB/MONITOR (12/02/16) CHEST X-RAY 1 VIEW FRONTAL (02/08/17) CO/MEMBANE DIFFUSE CAPACITY (01/02/15) COMPLETE CBC W/AUTO DIFF WBC (02/08/17) COMPREHEN METABOLIC PANEL (02/08/17) CRITICAL CARE ADDL 30 MIN (05/03/14) CRITICAL CARE FIRST HOUR (05/03/14) CT HEAD/BRAIN W/O DYE (02/08/17) ELECTROCARDIOGRAM TRACING (02/08/17) EMERGENCY DEPT VISIT (02/08/17) EMERGENCY DEPT VISIT (05/03/14) EVALUATION OF WHEEZING (01/02/15) EXTREMITY STUDY (07/04/16) GLUCOSE BLOOD TEST (02/08/17) HYDRATE IV INFUSION ADD-ON (02/08/17) METABOLIC PANEL TOTAL CA (02/08/17) MRI LUMBAR SPINE W/O DYE (01/25/17) MRI LWR EXTREMITY W/O&W/DYE (04/24/17) PROTHROMBIN TIME (02/08/17) PULM FUNCTION TEST BY GAS (01/02/15) ROUTINE VENIPUNCTURE (04/24/17) THER/PROPH/DIAG INJ IV PUSH (02/08/17) TX/PRO/DX INJ NEW DRUG ADDON (02/08/17) URINALYSIS AUTO W/SCOPE (02/08/17) URINE CULTURE/COLONY COUNT (02/08/17) Problem List Initiated/Reviewed/Updated: Yes My Orders Last 24 Hours: My Active Orders 05/19/17 09:00 Sertraline [Zoloft] 50 mg PO QAM 05/20/17 05:11 BASIC METABOLIC PANEL,BMP [CHEM] AM CBC WITH AUTO DIFF [HEME] AM 05/21/17 05:11 BASIC METABOLIC PANEL,BMP [CHEM] AM CBC WITH AUTO DIFF [HEME] AM 05/29/17 09:00 Cyanocobalamin (Vitamin B12) [Vitamin B12] 1,000 mcg IM Q14D Plan: 66 yo male s/p lap appendectomy consulted for hypoxia Hypoxia resolved. Plavix held until okay by surgery. saturation in 90-92% in room air while awake. When he is sleeping saturations are 87-88%. He is to follow up with PCP regarding sleep study for possible HEAVEN. He is medically stable. <Imer Tyler - Last Filed: 05/19/17 15:02> - Patient Data Vitals - Most Recent: Last Vital Signs Temp 37.0 C 05/19/17 11:14 Pulse 65 05/19/17 11:14 Resp 17 05/19/17 11:14 BP 124/69 05/19/17 11:14 Pulse Ox 93 L 05/19/17 11:14 I&O - Last 24 Hours: Intake & Output 05/19/17 05/19/17 05/19/17 06:59 14:59 22:59 Intake Total 0 1964 Output Total 7335 650 Balance 650 1314 Lab Results Last 24 Hours: Laboratory Results - last 24 hr 05/19/17 05/19/17 Range/Units 05:02 05:02 WBC 10.88 (4.0-11.0) K/uL RBC 4.59 (4.50-5.90) M/uL Hgb 14.0 (13.0-17.0) g/dL Hct 42.4 (38.0-50.0) % MCV 92.4 (80.0-98.0) fL MCH 30.5 (27.0-32.0) pg MCHC 33.0 (31.0-37.0) g/dL RDW Std Deviation 53.0 (28.0-62.0) fl RDW Coeff of Jeanette 16 H (11.0-15.0) % Plt Count 191 (150-400) K/uL MPV 10.50 (7.40-12.00) fL Neut % (Auto) 74.1 (48.0-80.0) % Lymph % (Auto) 16.7 (16.0-40.0) % Carlton % (Auto) 7.8 (0.0-15.0) % Eos % (Auto) 1.0 (0.0-7.0) % Baso % (Auto) 0.4 (0.0-1.5) % Neut # (Auto) 8.1 H (1.4-5.7) K/uL Lymph # (Auto) 1.8 (0.6-2.4) K/uL Carlton # (Auto) 0.9 H (0.0-0.8) K/uL Eos # (Auto) 0.1 (0.0-0.7) K/uL Baso # (Auto) 0.0 (0.0-0.1) K/uL Nucleated RBC % 0.0 /100WBC Nucleated RBCs # 0 K/uL Sodium 142 (136-146) mmol/L Potassium 4.1 (3.5-5.1) mmol/L Chloride 108 (98-110) mmol/L Carbon Dioxide 28 (21-31) mmol/L BUN 10 (6.0-23.0) mg/dL Creatinine 1.1 (0.6-1.5) mg/dL Est Cr Clr Drug Dosing 67.29 mL/min Estimated GFR (MDRD) > 60.0 ml/min Glucose 99 (60-110) mg/dL Calcium 8.2 L (8.8-10.8) mg/dL Med Orders - Current: Current Medications Discontinued Medications Hydrocodone Bitart/Acetaminophen ([place] 325-5 Mg) 1 - 2 tab PO Q4H PRN PRN Reason: Pain (moderate 4-6) Last Admin: 05/18/17 20:38 Dose: 1 tab Albuterol/Ipratropium (Duoneb 3.0-0.5 Mg/3 Ml) 3 ml NEB ONETIME ONE Stop: 05/18/17 12:41 Last Admin: 05/18/17 13:30 Dose: 3 ml Albuterol/Ipratropium (Duoneb 3.0-0.5 Mg/3 Ml) 3 ml NEB Q6HRRT PRN PRN Reason: Wheezing Albuterol/Ipratropium (Duoneb 3.0-0.5 Mg/3 Ml) 3 ml NEB Q4HRRT PRN PRN Reason: Wheezing Albuterol/Ipratropium (Duoneb 3.0-0.5 Mg/3 Ml) 3 ml NEB Q6HRRT [place] Last Admin: 05/19/17 11:45 Dose: 3 ml Bupivacaine HCl (Marcaine 0.5%) Confirm Administered Dose 30 ml .ROUTE .STK-MED ONE Stop: 05/18/17 11:38 Cefazolin Sodium (Ancef) Confirm Administered Dose 1 gm .ROUTE .STK-MED ONE Stop: 05/18/17 11:38 Cefoxitin Sodium (Mefoxin) Confirm Administered Dose 2 gm .ROUTE .STK-MED ONE Stop: 05/18/17 12:16 Clopidogrel Bisulfate (Plavix) 75 mg PO QAM [facility] Cyanocobalamin (Vitamin B12) 1,000 mcg IM Q14D [facility] Diclofenac Sodium (Voltaren) 75 mg PO BIDMEALS PRN PRN Reason: Pain Ephedrine Sulfate (Ephedrine Sulfate) Confirm Administered Dose 50 mg .ROUTE .STK-MED ONE Stop: 05/18/17 12:19 Etomidate (Amidate) Confirm Administered Dose 40 mg IVPUSH .STK-MED ONE Stop: 05/18/17 12:08 Fentanyl (Sublimaze) Confirm Administered Dose 250 mcg .ROUTE .STK-MED ONE Stop: 05/18/17 11:42 Fentanyl (Sublimaze) 50 mcg IVPUSH Q5M PRN PRN Reason: Pain (severe 7-10) Stop: 05/19/17 12:28 Fentanyl (Sublimaze) Confirm Administered Dose 100 mcg .ROUTE .STK-MED ONE Stop: 05/18/17 12:56 Glycopyrrolate () Confirm Administered Dose 1 mg .ROUTE .STK-MED ONE Stop: 05/18/17 12:20 Sodium Chloride (Normal Saline) 1,000 mls @ 999 mls/hr IV STAT ONE Stop: 05/18/17 09:40 Last Admin: 05/18/17 08:55 Dose: 999 mls/hr Lactated Ringer's (Ringers, Lactated) 1,000 mls @ 125 mls/hr IV ASDIRECTED [facility] Cefoxitin Sodium 2 gm/ Premix 50 mls @ 100 mls/hr IV ONETIME ONE Stop: 05/18/17 12:08 Last Admin: 05/18/17 14:50 Dose: Not Given Sodium Chloride (Normal Saline) Confirm Administered Dose 20 mls @ as directed .ROUTE .STK-MED ONE Stop: 05/18/17 12:16 Lactated Ringer's (Ringers, Lactated) 1,000 mls @ 125 mls/hr IV ASDIRECTED [facility] Last Admin: 05/19/17 04:21 Dose: 125 mls/hr Cefoxitin Sodium 1 gm/ Premix 50 mls @ 100 mls/hr IV Q8H [facility] Stop: 05/19/17 05:44 Last Admin: 05/18/17 14:51 Dose: Not Given Cefoxitin Sodium 1 gm/ Premix 50 mls @ 100 mls/hr IV Q8H [facility] Stop: 05/19/17 12:29 Last Admin: 05/19/17 11:00 Dose: 100 mls/hr Iopamidol (Isovue Multipack-370 (76%)) 100 ml IVPUSH ONETIME STA Stop: 05/18/17 10:18 Last Admin: 05/18/17 10:33 Dose: 100 ml Lidocaine (Xylocaine-Mpf 2%) Confirm Administered Dose 5 ml .ROUTE .STK-MED ONE Stop: 05/18/17 11:42 Lisinopril (Prinivil) 2.5 mg PO DAILY [facility] Last Admin: 05/19/17 08:21 Dose: Not Given Metoprolol Succinate (Toprol Xl) 25 mg PO DAILY [facility] Last Admin: 05/19/17 08:22 Dose: Not Given Midazolam HCl (Versed 1 Mg/Ml) Confirm Administered Dose 2 mg .ROUTE .STK-MED ONE Stop: 05/18/17 11:42 Morphine Sulfate (Morphine) 2 mg IV ONETIME ONE Stop: 05/18/17 11:14 Last Admin: 05/18/17 13:49 Dose: Not Given Morphine Sulfate (Morphine) 0 mg IVPUSH Q1H PRN PRN Reason: Pain (severe 7-10) Nitroglycerin (Nitrostat) 0.4 mg SL Q5M PRN PRN Reason: Chest Pain Non-Formulary Medication (Cyanocobalamin (Vitamin B-12) [Cyanocobalamin Injection]) 1,000 mcg IJ Q14D [facility] Last Admin: 05/18/17 18:58 Dose: Not Given Ondansetron HCl (Zofran) 8 mg IVPUSH ONETIME ONE Stop: 05/18/17 08:41 Last Admin: 05/18/17 08:55 Dose: 8 mg Ondansetron HCl (Zofran) Confirm Administered Dose 4 mg .ROUTE .STK-MED ONE Stop: 05/18/17 11:42 Ondansetron HCl (Zofran) 4 mg IVPUSH Q6H PRN PRN Reason: Nausea/Vomiting Phenylephrine HCl (Phenylephrine In Ns 100 Mcg/Ml) Confirm Administered Dose 1 mg .ROUTE .STK-MED ONE Stop: 05/18/17 12:22 Propofol (Diprivan 20 Ml) Confirm Administered Dose 200 mg .ROUTE .STK-MED ONE Stop: 05/18/17 11:42 Rocuronium [place] (Zemuron) Confirm Administered Dose 50 mg .ROUTE .STK-MED ONE Stop: 05/18/17 11:42 Sertraline HCl (Zoloft) 50 mg PO QAM [facility] Last Admin: 05/19/17 08:04 Dose: 50 mg Succinylcholine Chloride (Succinylcholine In Ns Pf) Confirm Administered Dose 200 mg .ROUTE .STK-MED ONE Stop: 05/18/17 11:42 Consult PN Assessment/Plan Procedures: Procedures ASSAY OF AMYLASE (02/08/17) ASSAY OF CREATININE (04/24/17) ASSAY OF LIPASE (02/08/17) ASSAY OF TROPONIN QUANT (02/08/17) CARDIAC REHAB/MONITOR (12/02/16) CHEST X-RAY 1 VIEW FRONTAL (02/08/17) CO/MEMBANE DIFFUSE CAPACITY (01/02/15) COMPLETE CBC W/AUTO DIFF WBC (02/08/17) COMPREHEN METABOLIC PANEL (02/08/17) CRITICAL CARE ADDL 30 MIN (05/03/14) CRITICAL CARE FIRST HOUR (05/03/14) CT HEAD/BRAIN W/O DYE (02/08/17) ELECTROCARDIOGRAM TRACING (02/08/17) EMERGENCY DEPT VISIT (02/08/17) EMERGENCY DEPT VISIT (05/03/14) EVALUATION OF WHEEZING (01/02/15) EXTREMITY STUDY (07/04/16) GLUCOSE BLOOD TEST (02/08/17) HYDRATE IV INFUSION ADD-ON (02/08/17) METABOLIC PANEL TOTAL CA (02/08/17) MRI LUMBAR SPINE W/O DYE (01/25/17) MRI LWR EXTREMITY W/O&W/DYE (04/24/17) PROTHROMBIN TIME (02/08/17) PULM FUNCTION TEST BY GAS (01/02/15) ROUTINE VENIPUNCTURE (04/24/17) THER/PROPH/DIAG INJ IV PUSH (02/08/17) TX/PRO/DX INJ NEW DRUG ADDON (02/08/17) URINALYSIS AUTO W/SCOPE (02/08/17) URINE CULTURE/COLONY COUNT (02/08/17) - Free Text/Narrative Note: I have examined the patient. I have discussed findings and treatment plan with resident. I agree with the assessment and plan outlined in the resident's note.
--- NOTE | 2017-05-19 11:53 | PCM.SURGPN ---
- General Info Date of Service: 05/19/17 POD#: 1 Post-Op Diagnosis: Acute appendicitis Functional Status: Reports: Pain Controlled, Tolerating Diet, Ambulating, Urinating - Review of Systems General: Denies: Fever, Weakness, Fatigue, Malaise, Chills HEENT: Reports: No Symptoms Pulmonary: Reports: Shortness of Breath (chronic COPD related). Denies: Cough, Sputum, Hemoptysis Cardiovascular: Denies: Chest Pain Gastrointestinal: Denies: Abdominal Pain, Decreased Appetite, Diarrhea, Difficulty Swallowing, Nausea, Vomiting Genitourinary: Denies: Dysuria, Frequency, Burning, Pain, Urgency Musculoskeletal: Reports: No Symptoms Skin: Reports: No Symptoms Neurological: Reports: No Symptoms Psychiatric: Reports: No Symptoms - Patient Data Vitals - Most Recent: Last Vital Signs Temp 98.7 F 05/19/17 08:00 Pulse 73 05/19/17 08:22 Resp 18 05/19/17 08:00 BP 108/52 L 05/19/17 08:22 Pulse Ox 91 L 05/19/17 08:00 Weight - Most Recent: 220 lb I&O - Last 24 Hours: Intake & Output 05/18/17 05/19/17 05/19/17 19:59 03:59 11:59 Intake Total 2400 1050 2100 Output Total 75 1400 Balance 2325 1050 700 Lab Results Last 24 Hrs: Laboratory Results - last 24 hr 05/19/17 05/19/17 Range/Units 05:02 05:02 WBC 10.88 (4.0-11.0) K/uL RBC 4.59 (4.50-5.90) M/uL Hgb 14.0 (13.0-17.0) g/dL Hct 42.4 (38.0-50.0) % MCV 92.4 (80.0-98.0) fL MCH 30.5 (27.0-32.0) pg MCHC 33.0 (31.0-37.0) g/dL RDW Std Deviation 53.0 (28.0-62.0) fl RDW Coeff of Jeanette 16 H (11.0-15.0) % Plt Count 191 (150-400) K/uL MPV 10.50 (7.40-12.00) fL Neut % (Auto) 74.1 (48.0-80.0) % Lymph % (Auto) 16.7 (16.0-40.0) % [place] % (Auto) 7.8 (0.0-15.0) % Eos % (Auto) 1.0 (0.0-7.0) % Baso % (Auto) 0.4 (0.0-1.5) % Neut # (Auto) 8.1 H (1.4-5.7) K/uL Lymph # (Auto) 1.8 (0.6-2.4) K/uL [place] # (Auto) 0.9 H (0.0-0.8) K/uL Eos # (Auto) 0.1 (0.0-0.7) K/uL Baso # (Auto) 0.0 (0.0-0.1) K/uL Nucleated RBC % 0.0 /100WBC Nucleated RBCs # 0 K/uL Sodium 142 (136-146) mmol/L Potassium 4.1 (3.5-5.1) mmol/L Chloride 108 (98-110) mmol/L Carbon Dioxide 28 (21-31) mmol/L BUN 10 (6.0-23.0) mg/dL Creatinine 1.1 (0.6-1.5) mg/dL Est Cr Clr Drug Dosing 67.29 mL/min Estimated GFR (MDRD) > 60.0 ml/min Glucose 99 (60-110) mg/dL Calcium 8.2 L (8.8-10.8) mg/dL Med Orders - Current: Current Medications Hydrocodone Bitart/Acetaminophen (Cornell 325-5 Mg) 1 - 2 tab PO Q4H PRN PRN Reason: Pain (moderate 4-6) Last Admin: 05/18/17 20:38 Dose: 1 tab Albuterol/Ipratropium (Duoneb 3.0-0.5 Mg/3 Ml) 3 ml NEB Q4HRRT PRN PRN Reason: Wheezing Albuterol/Ipratropium (Duoneb 3.0-0.5 Mg/3 Ml) 3 ml NEB Q6HRRT [facility] Last Admin: 05/19/17 11:45 Dose: 3 ml Cyanocobalamin (Vitamin B12) 1,000 mcg IM Q14D [place] Diclofenac Sodium (Voltaren) 75 mg PO BIDMEALS PRN PRN Reason: Pain Fentanyl (Sublimaze) 50 mcg IVPUSH Q5M PRN PRN Reason: Pain (severe 7-10) Stop: 05/19/17 12:28 Lactated Ringer's (Ringers, Lactated) 1,000 mls @ 125 mls/hr IV ASDIRECTED [facility] Last Admin: 05/19/17 04:21 Dose: 125 mls/hr Cefoxitin Sodium 1 gm/ Premix 50 mls @ 100 mls/hr IV Q8H [facility] Stop: 05/19/17 12:29 Last Admin: 05/19/17 11:00 Dose: 100 mls/hr Lisinopril (Prinivil) 2.5 mg PO DAILY [facility] Last Admin: 05/19/17 08:21 Dose: Not Given Metoprolol Succinate (Toprol Xl) 25 mg PO DAILY [facility] Last Admin: 05/19/17 08:22 Dose: Not Given Morphine Sulfate (Morphine) 0 mg IVPUSH Q1H PRN PRN Reason: Pain (severe 7-10) Nitroglycerin (Nitrostat) 0.4 mg SL Q5M PRN PRN Reason: Chest Pain Ondansetron HCl (Zofran) 4 mg IVPUSH Q6H PRN PRN Reason: Nausea/Vomiting S[facility]ine [facility]) [facility] Last Admin: 05/19/17 08:04 Dose: 50 mg Discontinued Medications Albuterol/Ipratropium (Duoneb 3.0-0.5 Mg/3 Ml) 3 ml NEB ONETIME ONE Stop: 05/18/17 12:41 Last Admin: 05/18/17 13:30 Dose: 3 ml Albuterol/Ipratropium (Duoneb 3.0-0.5 Mg/3 Ml) 3 ml NEB Q6HRRT PRN PRN Reason: Wheezing Bupivacaine HCl (Marcaine 0.5%) Confirm Administered Dose 30 ml .ROUTE .STK-MED ONE Stop: 05/18/17 11:38 Cefazolin Sodium (Ancef) Confirm Administered Dose 1 gm .ROUTE .STK-MED ONE Stop: 05/18/17 11:38 Cefoxitin Sodium (Mefoxin) Confirm Administered Dose 2 gm .ROUTE .STK-MED ONE Stop: 05/18/17 12:16 Clopidogrel Bisulfate (Plavix) 75 mg PO QAM [place] Ephedrine Sulfate (Ephedrine Sulfate) Confirm Administered Dose 50 mg .ROUTE .STK-MED ONE Stop: 05/18/17 12:19 Etomidate (Amidate) Confirm Administered Dose 40 mg IVPUSH .STK-MED ONE Stop: 05/18/17 12:08 Fentanyl (Sublimaze) Confirm Administered Dose 250 mcg .ROUTE .STK-MED ONE Stop: 05/18/17 11:42 Fentanyl (Sublimaze) Confirm Administered Dose 100 mcg .ROUTE .STK-MED ONE Stop: 05/18/17 12:56 Glycopyrrolate () Confirm Administered Dose 1 mg .ROUTE .ST-MED ONE Stop: 05/18/17 12:20 Sodium Chloride (Normal Saline) 1,000 mls @ 999 mls/hr IV STAT ONE Stop: 05/18/17 09:40 Last Admin: 05/18/17 08:55 Dose: 999 mls/hr Lactated Ringer's (Ringers, Lactated) 1,000 mls @ 125 mls/hr IV ASDIRECTED [facility] Cefoxitin Sodium 2 gm/ Premix 50 mls @ 100 mls/hr IV ONETIME ONE Stop: 05/18/17 12:08 Last Admin: 05/18/17 14:50 Dose: Not Given Sodium Chloride (Normal Saline) Confirm Administered Dose 20 mls @ as directed .ROUTE .[facility]-MED ONE Stop: 05/18/17 12:16 Cefoxitin Sodium 1 gm/ Premix 50 mls @ 100 mls/hr IV Q8H [facility] Stop: 05/19/17 05:44 Last Admin: 05/18/17 14:51 Dose: Not Given Iopamidol (Isovue Multipack-370 (76%)) 100 ml IVPUSH ONETIME STA Stop: 05/18/17 10:18 Last Admin: 05/18/17 10:33 Dose: 100 ml Lidocaine (Xylocaine-Mpf 2%) Confirm Administered Dose 5 ml .ROUTE .STK-MED ONE Stop: 05/18/17 11:42 Midazolam HCl (Versed 1 Mg/Ml) Confirm Administered Dose 2 mg .ROUTE .STK-MED ONE Stop: 05/18/17 11:42 Morphine Sulfate (Morphine) 2 mg IV ONETIME ONE Stop: 05/18/17 11:14 Last Admin: 05/18/17 13:49 Dose: Not Given Non-Formulary Medication (Cyanocobalamin (Vitamin B-12) [Cyanocobalamin Injection]) 1,000 mcg IJ Q14D [facility] Last Admin: 05/18/17 18:58 Dose: Not Given Ondansetron HCl (Zofran) 8 mg IVPUSH ONETIME ONE Stop: 05/18/17 08:41 Last Admin: 05/18/17 08:55 Dose: 8 mg Ondansetron HCl (Zofran) Confirm Administered Dose 4 mg .ROUTE .STK-MED ONE Stop: 05/18/17 11:42 Phenylephrine HCl (Phenylephrine In Ns 100 Mcg/Ml) Confirm Administered Dose 1 mg .ROUTE .STK-MED ONE Stop: 05/18/17 12:22 Propofol (Diprivan 20 Ml) Confirm Administered Dose 200 mg .ROUTE .STK-MED ONE Stop: 05/18/17 11:42 Rocuronium [place] (Zemuron) Confirm Administered Dose 50 mg .ROUTE .STK-MED ONE Stop: 05/18/17 11:42 Succinylcholine Chloride (Succinylcholine In Ns Pf) Confirm Administered Dose 200 mg .ROUTE .STK-MED ONE Stop: 05/18/17 11:42 - Exam Wound/Incisions: Drainage (from supraumbilical incision--has been on Plavix) Quality Assessment: Supplemental Oxygen. No: Urine Catheter General: Alert, Oriented, Cooperative, No Acute Distress HEENT: Pupils Equal, Pupils Reactive. No: Scleral Icterus Neck: Supple Lungs: Clear to Auscultation, Normal Respiratory Effort Cardiovascular: Regular Rate, Regular Rhythm, No Murmurs. No: Tachycardia GI/Abdominal Exam: Normal Bowel Sounds, Soft, Non-Tender, No Organomegaly, No Distention, No Mass. No: Guarding, Rigid, Rebound Extremities: Normal Inspection Skin: Warm, Dry, Intact Neurological: No New Focal Deficit Psy/Mental Status: Alert, Normal Affect - Problem List & Annotations (1) Right lower quadrant pain SNOMED Code(s): 835683334 Code(s): R10.31 - RIGHT LOWER QUADRANT PAIN Status: Acute Priority: High Current Visit: Yes (2) Acute appendicitis SNOMED Code(s): 12935686 Code(s): K35.80 - UNSPECIFIED ACUTE APPENDICITIS Status: Acute Priority: High Current Visit: Yes - Problem List Review Problem List Initiated/Reviewed/Updated: Yes - My Orders Last 24 Hours: Active Orders 24 hr Category Date Time Status Notify Provider Consults [RC] ASDIRECTED Care 05/18/17 14:13 Active RT Aerosol Therapy [RC] ASDIRECTED Care 05/18/17 13:21 Active RT BiPAP/CPAP [RC] ASDIRECTED Care 05/18/17 13:30 Active Consult to Physician [CONS] Routine Cons 05/18/17 14:12 Active Regular Diet [DIET] Diet 05/19/17 Breakfast Active BASIC METABOLIC PANEL,BMP [CHEM] AM Lab 05/20/17 05:11 Ordered BASIC METABOLIC PANEL,BMP [CHEM] AM Lab 05/21/17 05:11 Ordered CBC WITH AUTO DIFF [HEME] AM Lab 05/20/17 05:11 Ordered CBC WITH AUTO DIFF [HEME] AM Lab 05/21/17 05:11 Ordered Albuterol/Ipratropium [DuoNeb 3.0-0.5 MG/3 ML] Med 05/18/17 13:21 Active 3 ml NEB Q4HRRT PRN Albuterol/Ipratropium [DuoNeb 3.0-0.5 MG/3 ML] Med 05/18/17 18:00 Active 3 ml NEB Q6HRRT Cyanocobalamin (Vitamin B12) [Vitamin B12] Med 05/29/17 09:00 Active 1,000 mcg IM Q14D Diclofenac Sodium [Voltaren] Med 05/18/17 13:18 Active 75 mg PO BIDMEALS PRN Lisinopril [Prinivil] Med 05/18/17 13:30 Active 2.5 mg PO DAILY Metoprolol Succinate [Toprol XL] Med 05/18/17 13:30 Active 25 mg PO DAILY Nitroglycerin [Nitrostat] Med 05/18/17 13:18 Active 0.4 mg SL Q5M PRN Sertraline [Zoloft] Med 05/19/17 09:00 Active 50 mg PO QAM cefOXitin [Mefoxin in Dextrose,Iso-Osm 1 GM/50 ML] 1 gm Med 05/18/17 20:00 Active Premix Bag 1 bag IV Q8H Medication Orders Hydrocodone Bitart/Acetaminophen (Cornell 325-5 Mg) 1 - 2 tab PO Q4H PRN PRN Reason: Pain (moderate 4-6) Last Admin: 05/18/17 20:38 Dose: 1 tab Albuterol/Ipratropium (Duoneb 3.0-0.5 Mg/3 Ml) 3 ml NEB Q4HRRT PRN PRN Reason: Wheezing Albuterol/Ipratropium (Duoneb 3.0-0.5 Mg/3 Ml) 3 ml NEB Q6HRRT [facility] Last Admin: 05/19/17 11:45 Dose: 3 ml Admin: 05/19/17 07:00 Dose: 3 ml Admin: 05/19/17 00:15 Dose: 3 ml Admin: 05/18/17 17:03 Dose: 3 ml Cyanocobalamin (Vitamin B12) 1,000 mcg IM Q14D [facility] Diclofenac Sodium (Voltaren) 75 mg PO BIDMEALS PRN PRN Reason: Pain Fentanyl (Sublimaze) 50 mcg IVPUSH Q5M PRN PRN Reason: Pain (severe 7-10) Stop: 05/19/17 12:28 Lactated Ringer's (Ringers, Lactated) 1,000 mls @ 125 mls/hr IV ASDIRECTED [facility] Last Admin: 05/19/17 04:21 Dose: 125 mls/hr Infusion: 05/19/17 04:21 Dose: 125 mls/hr Admin: 05/18/17 20:38 Dose: 125 mls/hr Infusion: 05/18/17 20:38 Dose: 125 mls/hr Admin: 05/18/17 14:30 Dose: 125 mls/hr Cefoxitin Sodium 1 gm/ Premix 50 mls @ 100 mls/hr IV Q8H [facility] Stop: 05/19/17 12:29 Last Admin: 05/19/17 11:00 Dose: 100 mls/hr Infusion: 05/19/17 04:49 Dose: 100 mls/hr Admin: 05/19/17 04:19 Dose: 100 mls/hr Infusion: 05/18/17 20:37 Dose: 100 mls/hr Admin: 05/18/17 20:07 Dose: 100 mls/hr Lisinopril (Prinivil) 2.5 mg PO DAILY [facility] Last Admin: 05/19/17 08:21 Dose: Admin: 05/18/17 15:02 Dose: Metoprolol Succinate (Toprol Xl) 25 mg PO DAILY [facility] Last Admin: 05/19/17 08:22 Dose: Admin: 05/18/17 15:02 Dose: Morphine Sulfate (Morphine) 0 mg IVPUSH Q1H PRN PRN Reason: Pain (severe 7-10) Nitroglycerin (Nitrostat) 0.4 mg SL Q5M PRN PRN Reason: Chest Pain Ondansetron HCl (Zofran) 4 mg IVPUSH Q6H PRN PRN Reason: Nausea/Vomiting Sertraline HCl (Zoloft) 50 mg PO QAM [facility] Last Admin: 05/19/17 08:04 Dose: 50 mg - Assessment Assessment (Free Text/Narrative):: Stable post-op course following emergent lap appy for acute appendicitis. Tolerating po. Wants to go home. - Plan Plan (Free Text/Narrative):: Patient to be discharged today. May resume Plavix tomorrow. Umbilical dressing changed. Cornell 5/325 po q6h prn pain. May shower tomorrow. F/U with me 10 days.
[2017-05-19 12:33] VITALS: BP 124/69
--- NOTE | 2017-05-19 15:29 | PCM48HPAN ---
Post Anesthesia Note - EVALUATION WITHIN 48HRS OF ANESTHETIC Vital Signs in Normal Range: Yes Patient Participated in Evaluation: Yes Respiratory Function Stable: Yes Airway Patent: Yes Cardiovascular Function Stable: Yes Hydration Status Stable: Yes Pain Control Satisfactory: Yes Nausea and Vomiting Control Satisfactory: Yes Mental Status Recovered: Yes
[2017-05-29] MEDS ORDERED: Cyanocobalamin (Vitamin B12) 1,000 MCG/ML SDV IM SCH (09:00)
== END 2017-05-19 12:52 | disposition home or self-care (01) ==
LOC: MW.ED 08:34 → MW.SDS 11:29 → MW.ICU 13:13
PROVIDERS: ADMIT Surgery; ATTEND Surgery
PROC: 0DTJ4ZZ Resection of Appendix, Percutaneous Endoscopic Approach (ICD-10-PCS; principal; 2017-05-18)
DX: K35.80 Unspecified acute appendicitis (principal); I10 Essential (primary) hypertension; I25.2 Old myocardial infarction; J44.9 Chronic obstructive pulmonary disease, unspecified; M19.90 Unspecified osteoarthritis, unspecified site; Z79.02 Long term (current) use of antithrombotics/antiplatelets; Z79.899 Other long term (current) drug therapy; E78.00 Pure hypercholesterolemia, unspecified; Z90.49 Acquired absence of other specified parts of digestive tract; Z98.890 Other specified postprocedural states; Z87.891 Personal history of nicotine dependence
CPT/HCPCS: 36415; 44970; 74178; 80048; 80053; 81001; 82150; 83690; 84484; 85025; 87040; 88304; 93005; 94640; 94660; 94664; 96361; 96374; 99285; A9270; G0378; J0694; J2250; J2405; J3010; J7040; J7120; Q9967; 00840; 96360; J0690; J2704

== ENCOUNTER 2017-10-08 13:30 | Emergency (ER) | payer MEDICARE, BC, OTHER ==
[2017-10-08] MEDS ORDERED: Aspirin 81 MG Tab.Chew PO ONE (13:35)
[2017-10-08] MEDS ORDERED: Sodium Chloride 0.9% 2.5 ML Syringe FLUSH PRN (13:35)
[2017-10-08] MEDS ORDERED: Sodium Chloride 0.9% 10 ML Syringe FLUSH PRN (13:35)
[2017-10-08] MEDS ORDERED: Nitroglycerin 0.4 MG Tab.SL ONE (13:36)
[2017-10-08] MEDS ORDERED: Aspirin 81 MG Tab.Chew ONE (13:36)
[2017-10-08] MEDS: Nitroglycerin 0.4 MG Tab.SL SL PRN ×2 (13:37→14:02)
--- NOTE | 2017-10-08 13:39 | EDM.PDOC ---
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 Gtz in the ER his last catheter was one year prior Patient had taken a nitroglycerin on his own on the way in, he was provided 2 more doses of nitroglycerin here in the ER which pain did respond to nearly dissipating after the second dose however return to a 10 out of 10 pain in pain associated with shortness of breath weakness dizziness and diaphoresis. ] Review of systems: As per history of present illness and below otherwise all systems reviewed and negative. Past medical history: As per history of present illness and as reviewed below otherwise noncontributory. Surgical history: As per history of present illness and as reviewed below otherwise noncontributory. Social history: No reported history of drug or alcohol abuse. Family history: As per history of present illness and as reviewed below otherwise noncontributory. Physical exam: HEENT: Atraumatic, normocephalic, pupils reactive, negative for conjunctival pallor or scleral icterus, mucous membranes moist, throat clear, neck supple, nontender, trachea midline. Lungs: Clear to auscultation, breath sounds equal bilaterally, chest nontender. Heart: S1S2, regular, negative for clicks, rubs, or JVD. Abdomen: Soft, nondistended, nontender. Negative for masses or hepatosplenomegaly. Negative for costovertebral tenderness. Pelvis: Stable nontender. Genitourinary: Deferred. Rectal: Deferred. Extremities: Atraumatic, negative for cords or calf pain. Neurovascular unremarkable. Neuro: Awake, alert, oriented. Cranial nerves II through XII unremarkable. Cerebellum unremarkable. Motor and sensory unremarkable throughout. Exam nonfocal. Diagnostics: []CBC CMP cardiac enzymes, cardiac enzymes not available at time of transfer transferred on clinical basis EKG initial EKG suggested some anterior ST changes however repeat no acute changes are seen Chest x-ray one view Therapeutics: []Oxygen supplementation Aspirin 324 mg chewable Nitroglycerin 0.4 sublingual 3 provided Lopressor 5 mg IV Lovenox 100 mg subcutaneous Impression: []Acute coronary syndrome Minimally unstable angina Definitive disposition and diagnosis as appropriate pending reevaluation and review of above. Left Chest/Epigastric Pain Score (Numeric/FACES): 9 - Related Data Allergies Allergy/AdvReac Type Severity Reaction Status Date / Time No Known Allergies Allergy Verified 05/18/17 08:53 Home Meds: Home Meds Clopidogrel Bisulfate [Clopidogrel] 75 mg PO QAM 02/07/17 [History] Diclofenac Sodium [IMW: Diclofenac Sodium] 75 mg PO BIDMEALS PRN 02/07/17 [ History] Lisinopril 2.5 mg PO DAILY 02/07/17 [History] Metoprolol Succinate [Toprol XL] 25 mg PO DAILY 02/07/17 [History] Sertraline HCl 50 mg PO QAM 02/07/17 [History] Cyanocobalamin (Vitamin B-12) [Cyanocobalamin Injection] 1,000 mcg IJ Q14D 05/18 [History] Nitroglycerin [Nitrostat] 0.4 mg SL Q5M PRN 05/18/17 [History] Acetaminophen/HYDROcodone [[place] 325-5 MG] 1 tab PO Q6H PRN #20 tablet 05/19/17 [Rx] Past Medical History - Past Health History Medical/Surgical History: Denies Medical/Surgical History HEENT History: Reports: Impaired Vision Cardiovascular History: Reports: High Cholesterol, Hypertension, [place], Stents Other Cardiovascular History: 3 heart attacks, 3 stents Respiratory History: Reports: COPD Musculoskeletal History: Reports: Arthritis, Back Pain, Chronic - Infectious Disease History Infectious Disease History: Reports: Chicken Pox, Measles, Mumps - Past Surgical History GI Surgical History: Reports: Cholecystectomy, Hernia, Abdominal (Umbilical) Social & Family History - Family History Family Medical History: Noncontributory - Tobacco Use Smoking Status *Q: Former Smoker Years of Tobacco use: 45 Used Tobacco, but Quit: Yes Month Tobacco Last Used: not applicable Second Hand Smoke Exposure: No - Caffeine Use Caffeine Use: Reports: Coffee Caffeine Use Comment: 3-4cups/day - Alcohol Use Days Per Week of Alcohol Use: 0 - Recreational Drug Use Recreational Drug Use: No ED ROS GENERAL - Review of Systems Review Of Systems: ROS reveals no pertinent complaints other than HPI. ED EXAM, GENERAL - Physical Exam Exam: See Below Course - Vital Signs Last Recorded V/S: Last Vital Signs Temp 97.0 F 10/08/17 13:30 Pulse 54 L 10/08/17 13:30 Resp 26 H 10/08/17 13:30 BP 108/72 10/08/17 14:02 Pulse Ox 93 L 10/08/17 13:30 - Orders/Labs/Meds Orders: Active Orders 24 hr Category Date Time Status Cardiac Monitoring [RC] . DIRECTED Care 10/08/17 13:35 Active EKG Documentation Completion [RC] STAT Care 10/08/17 13:35 Active Chest 1V Frontal [CR] Stat Exams 10/08/17 13:35 Taken COMPREHENSIVE METABOLIC PN,CMP [CHEM] Stat Lab 10/08/17 13:39 Results TROPONIN I [CHEM] Stat Lab 10/08/17 13:39 Results Nitroglycerin [Nitrostat] Med 10/08/17 13:35 Active 0.4 mg SL Q5M PRN Sodium Chloride 0.9% [Normal Saline] 1,000 ml Med 10/08/17 13:45 Active IV ASDIRECTED Sodium Chloride 0.9% [Saline Flush] Med 10/08/17 13:35 Active 10 ml FLUSH ASDIRECTED PRN Sodium Chloride 0.9% [Saline Flush] Med 10/08/17 13:35 Active 2.5 ml FLUSH ASDIRECTED PRN Saline Lock Insert [OM.PC] Stat Oth 10/08/17 13:35 Ordered Medication Orders Sodium Chloride (Normal Saline) 1,000 mls @ 999 mls/hr IV ASDIRECTED [facility] Last Admin: 10/08/17 13:37 Dose: 999 mls/hr Nitroglycerin (Nitrostat) 0.4 mg SL Q5M PRN PRN Reason: Chest Pain Last Admin: 10/08/17 14:02 Dose: 0.4 mg Admin: 10/08/17 13:37 Dose: 0.4 mg Sodium Chloride (Saline Flush) 10 ml FLUSH ASDIRECTED PRN PRN Reason: Keep Vein Open Last Admin: 10/08/17 13:51 Dose: 10 ml Sodium Chloride (Saline Flush) 2.5 ml FLUSH ASDIRECTED PRN PRN Reason: Keep Vein Open Last Admin: 10/08/17 13:52 Dose: 2.5 ml Labs: Laboratory Tests 10/08/17 10/08/17 10/08/17 Range/Units 13:39 13:39 13:39 WBC 18.20 H (4.0-11.0) K/uL RBC 5.19 (4.50-5.90) M/uL Hgb 16.1 (13.0-17.0) g/dL Hct 47.7 (38.0-50.0) % MCV 91.9 (80.0-98.0) fL MCH 31.0 (27.0-32.0) pg MCHC 33.8 (31.0-37.0) g/dL RDW Std Deviation 49.9 (28.0-62.0) fl RDW Coeff of Jeanette 15 (11.0-15.0) % Plt Count 253 (150-400) K/uL MPV 10.40 (7.40-12.00) fL Neut % (Auto) 70.0 (48.0-80.0) % Lymph % (Auto) 21.8 (16.0-40.0) % [place] % (Auto) 7.0 (0.0-15.0) % Eos % (Auto) 0.8 (0.0-7.0) % Baso % (Auto) 0.4 (0.0-1.5) % Neut # (Auto) 12.8 H (1.4-5.7) K/uL Lymph # (Auto) 4.0 H (0.6-2.4) K/uL [place] # (Auto) 1.3 H (0.0-0.8) K/uL Eos # (Auto) 0.1 (0.0-0.7) K/uL Baso # (Auto) 0.1 (0.0-0.1) K/uL Nucleated RBC % 0.0 /100WBC Nucleated RBCs # 0 K/uL INR (0.86-1.11) Sodium 138 (136-146) mmol/L Potassium 3.9 (3.5-5.1) mmol/L Chloride 108 (98-110) mmol/L Carbon Dioxide 19 L (21-31) mmol/L BUN 15 (6.0-23.0) mg/dL Creatinine 0.9 (0.6-1.5) mg/dL Est Cr Clr Drug Dosing 78.56 mL/min Estimated GFR (MDRD) > 60.0 ml/min Glucose 123 H (60-110) mg/dL Calcium 9.1 (8.8-10.8) mg/dL Total Bilirubin 0.9 (0.1-1.5) mg/dL AST 47 H (5-40) IU/L ALT 31 (8-54) IU/L Alkaline Phosphatase 65 (40-150) Creatine Kinase 57 (9-236) IU/L CK-MB (CK-2) 1.0 (0-6.6) ng/ml Total Protein 6.8 (6.0-8.0) g/dL Albumin 4.0 (3.4-4.8) g/dL Globulin 2.8 (2.0-3.5) g/dL Albumin/Globulin Ratio 1.4 (1.3-2.8) Amylase (10-90) U/L Lipase (7-80) U/L 10/08/17 10/08/17 Range/Units 13:39 13:39 WBC (4.0-11.0) K/uL RBC (4.50-5.90) M/uL Hgb (13.0-17.0) g/dL Hct (38.0-50.0) % MCV (80.0-98.0) fL MCH (27.0-32.0) pg MCHC (31.0-37.0) g/dL RDW Std Deviation (28.0-62.0) fl RDW Coeff of Jeanette (11.0-15.0) % Plt Count (150-400) K/uL MPV (7.40-12.00) fL Neut % (Auto) (48.0-80.0) % Lymph % (Auto) (16.0-40.0) % [place] % (Auto) (0.0-15.0) % Eos % (Auto) (0.0-7.0) % Baso % (Auto) (0.0-1.5) % Neut # (Auto) (1.4-5.7) K/uL Lymph # (Auto) (0.6-2.4) K/uL [place] # (Auto) (0.0-0.8) K/uL Eos # (Auto) (0.0-0.7) K/uL Baso # (Auto) (0.0-0.1) K/uL Nucleated RBC % /100WBC Nucleated RBCs # K/uL INR 0.96 (0.86-1.11) Sodium (136-146) mmol/L Potassium (3.5-5.1) mmol/L Chloride (98-110) mmol/L Carbon Dioxide (21-31) mmol/L BUN (6.0-23.0) mg/dL Creatinine (0.6-1.5) mg/dL Est Cr Clr Drug Dosing mL/min Estimated GFR (MDRD) ml/min Glucose (60-110) mg/dL Calcium (8.8-10.8) mg/dL Total Bilirubin (0.1-1.5) mg/dL AST (5-40) IU/L ALT (8-54) IU/L Alkaline Phosphatase (40-150) Creatine Kinase (9-236) IU/L CK-MB (CK-2) (0-6.6) ng/ml Total Protein (6.0-8.0) g/dL Albumin (3.4-4.8) g/dL Globulin (2.0-3.5) g/dL Albumin/Globulin Ratio (1.3-2.8) Amylase 64 (10-90) U/L Lipase 33 (7-80) U/L Meds: Medications Generic Name Dose Route Start Last Admin Trade Name Freq PRN Reason Stop Dose Admin Sodium Chloride 1,000 mls @ 999 mls/hr 10/08/17 13:45 10/08/17 13:37 Normal Saline IV 999 mls/hr ASDIRECTED [facility] Administration Nitroglycerin 0.4 mg 10/08/17 13:35 10/08/17 14:02 Nitrostat SL 0.4 mg Q5M PRN Administration Chest Pain Sodium Chloride 10 ml 10/08/17 13:35 10/08/17 13:51 Saline Flush FLUSH 10 ml ASDIRECTED PRN Administration Keep Vein Open Sodium Chloride 2.5 ml 10/08/17 13:35 10/08/17 13:52 Saline Flush FLUSH 2.5 ml ASDIRECTED PRN Administration Keep Vein Open Discontinued Medications Generic Name Dose Route Start Last Admin Trade Name Freq PRN Reason Stop Dose Admin Aspirin 324 mg 12/17/17 13:35 10/08/17 13:37 Aspirin PO 10/08/17 13:36 324 mg ONETIME ONE Administration Aspirin Confirm 10/08/17 13:36 10/08/17 13:50 Aspirin Administered 10/08/17 13:37 Not Given Dose 324 mg .ROUTE .STK-MED ONE Enoxaparin Sodium 100 mg 10/08/17 13:53 10/08/17 14:05 Lovenox SUBCUT 10/08/17 13:54 100 mg ONETIME ONE Administration Metoprolol Tartrate 5 mg 10/08/17 13:45 Lopressor IVPUSH 10/08/17 13:56 Q5M LORNE Morphine Sulfate 2 mg 10/08/17 14:03 Morphine IV 10/08/17 14:04 ONETIME ONE Nitroglycerin Confirm 10/08/17 13:36 10/08/17 13:35 Nitrostat Administered 10/08/17 13:37 Not Given Dose 1.2 mg .ROUTE .STK-MED ONE Ondansetron HCl 8 mg 10/08/17 14:03 10/08/17 14:10 Zofran IVPUSH 10/08/17 14:04 8 mg ONETIME ONE Administration Departure - Departure Time of Disposition: 14:14 Disposition: DC/Tfer to Other 70 Condition: Fair Clinical Impression: Acute coronary syndrome - Discharge Information
[2017-10-08] MEDS ORDERED: Sodium Chloride 0.9% 1,000 ML IV SCH (13:45)
[2017-10-08] MEDS ORDERED: Enoxaparin 100 MG/1 ML Syringe SUBCUT ONE (13:53)
[2017-10-08] MEDS ORDERED: Ondansetron 4 MG/2 ML SDV IVPUSH ONE (14:03)
[2017-10-08] MEDS ORDERED: Morphine 10 MG/ML Syringe IV ONE (14:03)
[2017-10-08 14:04] LABS: CHLORIDE,CL 108 mmol/L (98-110); SODIUM,NA 138 mmol/L (136-146)
[2017-10-08] MEDS: Metoprolol Tartrate 5 MG/5 ML SDV IVPUSH SCH ×2 (14:18→14:23)
[2017-10-08 14:29] VITALS: BP 102/65
--- NOTE | 2017-10-09 15:03 | CR ---
EXAM DATE: 10/08/17 PATIENT'S AGE: 67 Patient: LORI PANDA Facility: [place], [place] Site Site : 1950 Study: XRay Chest [id number] 1:55:23 PM Ordering Physician: Cyndi Cheek NP Final Report: CHEST 1 VIEW AP INDICATION: Chest pain. Comparison 02/07/2017. IMPRESSION: Normal heart size and vascular pattern. Lungs are clear. No pneumothorax or pleural abnormality. ECG Monitor leads projected over the patient. Stable small calcified nodules at the right lung base and hilar lymph node calcifications. Linear scarring in the left lung base and calcified left mid lung nodule. Dictated by Panchito Early MD @ Oct 08 2017 2:11PM (Electronic Signature) Report Signed by Proxy. JERZY
== END 2017-10-08 14:40 ==
LOC: MW.ED 13:30
DX: I24.9 Acute ischemic heart disease, unspecified (principal); I10 Essential (primary) hypertension; E78.00 Pure hypercholesterolemia, unspecified; Z79.899 Other long term (current) drug therapy; Z87.891 Personal history of nicotine dependence
CPT/HCPCS: 36415; 71010; 80053; 82150; 82550; 82553; 83690; 84484; 85025; 85610; 93005; 96361; 96372; 96374; 96375; 99285; A9270; J1650; J2405; J7040; 99284

== ENCOUNTER 2021-02-05 09:30 | Observation (INO) | payer MEDICARE, OTHER ==
--- NOTE | 2021-02-05 09:52 | PCM.EKG ---
#1 Interpretation EKG Date: 02/05/21 Time: 09:48 Rhythm: NSR Rate (Beats/Min): 71 ST-T: Normal
[2021-02-05] MEDS ORDERED: Sodium Chloride 0.9% 1,000 ML IV ONE ×2 (09:58→16:14)
--- NOTE | 2021-02-05 10:11 | EDM.PDOC ---
ED HPI GENERAL MEDICAL PROBLEM - General Chief Complaint: Syncope Stated Complaint: PASSED OUT Time Seen by Provider: 02/05/21 09:51 Source of Information: Reports: Patient History Limitations: Reports: No Limitations - History of Present Illness INITIAL COMMENTS - FREE TEXT/NARRATIVE: HISTORY AND PHYSICAL: History of present illness: Patient is a 70-year-old male who presents to the emergency room with complaints of near syncope. He reports over the past 1 week he has had a frequent cough and generally felt unwell. Yesterday he started having several bouts of loose stools. This morning he was having a bowel movement and felt very diaphoretic and "stop myself from passing out". He states he remained on the toilet and did not fall or hit his head. His took his blood pressure which was 90/50. Currently he feels generally unwell and lightheaded. Patient denies any fever, chills, headache, change in vision, chest pain, back pain, shortness of breath or hemoptysis. Denies any abdominal pain, nausea, vomiting, constipation or dysuria. Has not noted any blood in urine or stool. Patient has been eating and drinking appropriately. Past medical history AR x 3 with stents, HTN, and CVA. Review of systems: As per history of present illness and below otherwise all systems reviewed and negative. Past medical history: As per history of present illness and as reviewed below otherwise noncontributory. Surgical history: As per history of present illness and as reviewed below otherwise noncontributory. Social history: See social history for further information Family history: As per history of present illness and as reviewed below otherwise noncontributory. Physical exam: General: Well developed and well nourished 70 year old male. Alert and o rientated x 3. Nontoxic in appearance and in no acute distress. Vital signs are stable and have been reviewed by me. Nursing notes were reviewed. HEENT: Atraumatic, normocephalic, pupils equal and reactive bilaterally, negative for conjunctival pallor or scleral icterus, mucous membranes moist, TMs normal bilaterally, throat clear, neck supple, nontender, trachea midline. No drooling or trismus noted. No meningeal signs. No hot potato voice noted. Lungs: Diminished to auscultation bilaterally, left base greater than right. No wheezes, rales, or rhonchi. Chest nontender. Normal work of breathing, no accessory muscles used. Heart: S1S2, regular rate and rhythm without overt murmur, gallops, or rubs. No JVD. No peripheral edema Abdomen: Soft, nondistended, nontender. Normoactive bowel sounds. Negative for masses or costovertebral tenderness. Skin: Intact, warm, dry. No lesions or rashes noted. Hematologic: No petechiae or purpra. Mucosa appropriate color and normal nail bed color and refill. Extremities: Atraumatic, moves all extremities per self without difficulty or deficits, negative for cords or calf pain. Neurovascular unremarkable. Neuro: Awake, alert, oriented. Cranial nerves II through XII unremarkable. Cerebellum unremarkable. Motor and sensory unremarkable throughout. Exam nonfocal. Psychiatric: Mood and affect are appropriate. Normal thought process. Answering questions appropriately. Notes: *This patient was seen and evaluated during the 2019 SARS-CoV-2 novel coronavirus pandemic period. Community viral transmission is ongoing at time of this encounter and the emergency department is operating under pandemic response procedures. Patient has a slight leukocytosis. Negative troponin. No concerning findings on EKG. Chest x-ray shows mild atelectasis or infiltrate in the left lung base. I will treat him as a community-acquired pneumonia. Discussed with patient inpatient treatment versus outpatient antibiotic course. Patient and agree due to his fatigue and weakness he would like to stay overnight for IV antibiotics and further management. Dr Hanley, hospitalist on-call was consulted. She is agreeable to keeping this patient for further care and management. Diagnostics: CBC, CMP, Troponin, EKG, CXR, COVID/Influenza, UA Therapeutics: NS, Rocephin, Azithromycin Impression: CAP Near Syncope Diarrhea Plan: Observation admission to Med/Surg with telemetry Definitive disposition and diagnosis as appropriate pending reevaluation and review of above. - Related Data Allergies Allergy/AdvReac Type Severity Reaction Status Date / Time No Known Allergies Allergy Verified 02/05/21 10:00 Home Meds: Home Meds Clopidogrel Bisulfate [Clopidogrel] 75 mg PO QAM 02/07/17 [History] Diclofenac Sodium [IMW: Diclofenac Sodium] 75 mg PO BIDMEALS PRN 02/07/17 [History] Lisinopril 2.5 mg PO DAILY 02/07/17 [History] Metoprolol Succinate [Toprol XL] 25 mg PO DAILY 02/07/17 [History] Cyanocobalamin (Vitamin B-12) [Cyanocobalamin Injection] 1,000 mcg IJ Q14D 05/18/17 [History] Nitroglycerin [Nitrostat] 0.4 mg SL Q5M PRN 05/18/17 [History] Acetaminophen/HYDROcodone [[place] 325-5 MG] 1 tab PO Q6H PRN #20 tablet 05/19/17 [Rx] Gabapentin [Neurontin] 300 mg PO BID 02/05/21 [History] Past Medical History - Past Health History Medical/Surgical History: Denies Medical/Surgical History HEENT History: Reports: Impaired Vision Cardiovascular History: Reports: High Cholesterol, Hypertension, AR, Stents Other Cardiovascular History: 3 heart attacks, 3 stents Respiratory History: Reports: COPD Musculoskeletal History: Reports: Arthritis, Back Pain, Chronic Neurological History: Reports: CVA - Infectious Disease History Infectious Disease History: Reports: Chicken Pox, Measles, Mumps - Past Surgical History Cardiovascular Surgical History: Reports: Coronary Artery Stent Respiratory Surgical History: Reports: None GI Surgical History: Reports: Cholecystectomy, Hernia, Abdominal Other Neurological Surgeries/Procedures: CVA during cholecystectomy Musculoskeletal Surgical History: Reports: None Social & Family History - Family History Family Medical History: No Pertinent Family History - Tobacco Use Packs/Tins Daily: 4 - Caffeine Use Caffeine Use: Reports: Coffee Caffeine Use Comment: 3-4cups/day ED ROS GENERAL - Review of Systems Review Of Systems: Comprehensive ROS is negative, except as noted in HPI. ED EXAM, DIZZINESS - Physical Exam Exam: See Below (See dictation) Course - Vital Signs Last Recorded V/S: Last Vital Signs Temp 97.1 F 02/05/21 09:40 Pulse 65 02/05/21 09:40 Resp BP 128/71 02/05/21 09:40 Pulse Ox 94 L 02/05/21 09:40 Orthostatic Blood Pressure [ 112/70 Standing] Orthostatic Blood Pressure [ 112/70 Sitting] Orthostatic Blood Pressure [ 113/73 Supine] - Orders/Labs/Meds Orders: Active Orders 24 hr Category Date Time Status EKG Documentation Completion [RC] STAT Care 02/05/21 09:57 Active Orthostatic Vital Signs [RC] ASDIRECTED Care 02/05/21 09:58 Active COVID-19/FLU A+B [MOLEC] Stat Lab 02/05/21 09:57 Ordered UA RFX YORDAN AND CULT IF INDIC [URIN] Stat Lab 02/05/21 09:57 Ordered Sodium Chloride 0.9% [Normal Saline] 1,000 ml Med 02/05/21 09:58 Active IV STAT Medication Orders Sodium Chloride (Normal Saline) 1,000 mls @ 200 mls/hr IV STAT ONE Stop: 02/05/21 14:57 Last Admin: 02/05/21 10:20 Dose: 200 mls/hr Documented by: RAFAT Labs: Laboratory Tests 02/05/21 02/05/21 02/05/21 Range/Units 09:49 09:51 09:51 WBC 13.40 H (4.0-11.0) K/uL RBC 5.54 (4.50-5.90) M/uL Hgb 16.6 (13.0-17.0) g/dL Hct 50.4 H (38.0-50.0) % MCV 91.0 (80.0-98.0) fL MCH 30.0 (27.0-32.0) pg MCHC 32.9 (31.0-37.0) g/dL RDW Std Deviation 49.6 (28.0-62.0) fl RDW Coeff of Jeanette 15 (11.0-15.0) % Plt Count 205 (150-400) K/uL MPV 10.20 (7.40-12.00) fL Add Manual Diff YES Neutrophils % (Manual) 81 H (48.0-80.0) % Band Neutrophils % 2 % Lymphocytes % (Manual) 11 L (16.0-40.0) % Monocytes % (Manual) 1 (0.0-15.0) % Eosinophils % (Manual) 3 (0.0-7.0) % Basophils % (Manual) 2 H (0.0-1.5) % Absolute Seg Neuts 10.9 H (1.4-5.7) Band Neutrophils # 0.3 Lymphocytes # (Manual) 1.5 (0.6-2.4) Monocytes # (Manual) 0.1 (0.0-0.8) Eosinophils # (Manual) 0.4 (0.0-0.7) Basophils # (Manual) 0.3 H (0.0-0.1) Sodium 138 (136-148) mmol/L Potassium 4.6 (3.5-5.1) mmol/L Chloride 105 (98-107) mmol/L Carbon Dioxide 26.5 (21.0-32.0) mmol/L BUN 19 H (7.0-18.0) mg/dL Creatinine 1.3 (0.8-1.3) mg/dL Est Cr Clr Drug Dosing 53.81 mL/min Estimated GFR (MDRD) 54.4 ml/min Glucose 160 H (74-106) mg/dL POC Glucose 151 H (70-99) mg/dL Calcium 8.6 (8.5-10.1) mg/dL Total Bilirubin 1.0 (0.2-1.0) mg/dL AST 18 (15-37) IU/L ALT 36 (14-63) IU/L Alkaline Phosphatase 76 (46-116) U/L Troponin I < 0.050 (0.000-0.056) ng/mL Total Protein 7.1 (6.4-8.2) g/dL Albumin 3.7 (3.4-5.0) g/dL Globulin 3.4 (2.6-4.0) g/dL Albumin/Globulin Ratio 1.1 (0.9-1.6) Meds: Medications Generic Name Dose Route Start Last Admin Trade Name Freq PRN Reason Stop Dose Admin Sodium Chloride 1,000 mls @ 200 mls/hr 02/05/21 09:58 02/05/21 10:20 Normal Saline IV 02/05/21 14:57 200 mls/hr STAT ONE Administration Departure - Departure Time of Disposition: 11:12 Disposition: Refer to Observation Clinical Impression: Near syncope CAP (community acquired pneumonia) Qualifiers: Laterality: left Lung location: lower lobe of lung Qualified Code(s): J18.9 - Pneumonia, unspecified organism Diarrhea Qualifiers: Diarrhea type: unspecified type Qualified Code(s): R19.7 - Diarrhea, unspecified - Discharge Information Referrals: Iesha Smith MD [Primary Care Provider] - Forms: ED Department Discharge Sepsis Event Note (ED) - Evaluation Sepsis Screening Result: No Definite Risk - Focused Exam Vital Signs: Vital Signs Temp Pulse BP Pulse Ox 02/05/21 09:40 97.1 F 65 128/71 94 L - My Orders Last 24 Hours: My Active Orders 02/05/21 09:57 EKG Documentation Completion [RC] STAT COVID-19/FLU A+B [MOLEC] Stat UA RFX YORDAN AND CULT IF INDIC [URIN] Stat 02/05/21 09:58 Orthostatic Vital Signs [RC] ASDIRECTED Sodium Chloride 0.9% [Normal Saline] 1,000 ml IV STAT - Assessment/Plan Last 24 Hours: My Active Orders 02/05/21 09:57 EKG Documentation Completion [RC] STAT COVID-19/FLU A+B [MOLEC] Stat UA RFX YORDAN AND CULT IF INDIC [URIN] Stat 02/05/21 09:58 Orthostatic Vital Signs [RC] ASDIRECTED Sodium Chloride 0.9% [Normal Saline] 1,000 ml IV STAT
[2021-02-05 10:41] LABS: BLOOD UREA NITROGEN,BUN 19 mg/dL (7.0-18.0); CARBON DIOXIDE,CO2 26.5 mmol/L (21.0-32.0); CHLORIDE,CL 105 mmol/L (98-107); GLUCOSE RANDOM 160 mg/dL (74-106); POTASSIUM,K 4.6 mmol/L (3.5-5.1); SODIUM,NA 138 mmol/L (136-148)
--- NOTE | 2021-02-05 10:48 | CR ---
INDICATION: Cough. TECHNIQUE: Single view. COMPARISON: 10/08/2017. FINDINGS: Linear density left lung base is identified consistent with atelectasis or mild infiltrate. The right lung is free of infiltrate. Densely calcified granulomas are noted bilaterally and stable. Heart size is within normal limits. IMPRESSION: Mild atelectasis or infiltrate left lung base is identified. Stable findings of prior granulomatous disease. Dictated by Ignacio Brenner MD @ Feb 05 2021 10:44AM Signed by Dr. Ignacio Brenner @ Feb 05 2021 10:46AM
[2021-02-05] MEDS ORDERED: Azithromycin 500 MG in Sodium Chloride 0.9% 250 ML IV STA (11:46)
[2021-02-05] MEDS ORDERED: cefTRIAXone 1 GM in Premix Bag 1 BAG IV ONE (11:46)
[2021-02-05 12:28] LABS: CORONAVIRUS COVID-19 NAA NEGATIVE (NEGATIVE); INFLUENZA A NAA NEGATIVE (NEGATIVE); INFLUENZA B NAA NEGATIVE (NEGATIVE)
[2021-02-05] MEDS ORDERED: Sodium Chloride 0.9% 2.5 ML Syringe FLUSH PRN (13:39)
[2021-02-05] MEDS ORDERED: Acetaminophen 325 MG Tab PO PRN (13:39)
[2021-02-05] MEDS ORDERED: Docusate Sodium 100 MG Cap PO PRN (13:39)
[2021-02-05] MEDS ORDERED: Albuterol/Ipratropium 3.0-0.5 MG/3 ML Neb Soln NEB PRN (13:39)
[2021-02-05] MEDS ORDERED: Ondansetron 4 MG/2 ML SDV IVPUSH PRN (13:39)
--- NOTE | 2021-02-05 13:54 | PCM.HP.2 ---
H&P History of Present Illness - General Date of Service: 02/05/21 Admit Problem/Dx: Admission Diagnosis/Problem Admission Diagnosis/Problem Pneumonia Source of Information: Patient, Family, Old Records (Records reviewed from Dr. [place], extraction machine operator as well as Dr. Nair, neurologist) - History of Present Illness Initial Comments - Free Text/Narative: This 70-year-old male with past medical history of former smoker, COPD, CAD status post PCI x3, recurrent syncope, CVA, carotid artery stenosis (right common carotid occluded, moderate occlusion to left carotid) and recent memory impairment presented to the ER today with complaints of near syncope. He reported that over the last week or so he has been having more frequent cough and generally feeling unwell. Yesterday he had several bouts of loose stool. This morning he did wake up to have a bowel movement and became very diaphoretic and nearly passed out. Patient did not fall or hit his head. His was able to take his blood pressure at that time and noted it was 90/50. He continues to feel unwell and lightheaded. He denied any fevers chills chest pain neck pain. He does report shortness of breath beyond his normal. Cough is nonproductive but he feels more rattling within his chest. He does not use oxygen at home. He denies any abdominal pain nausea or vomiting. He has not had any blood in his stool. Reports that he has been eating and drinking appropriately. Quit smoking 8 years ago no alcohol use and does use daily oil at nighttime for restless leg symptoms. In the ER mild leukocytosis noted at 13,400 hemoglobin 16.6 hematocrit 50.4. Sodium 138, potassium 4.6, BUN 19, creatinine 1.3, bilirubin 1.0 AST ALT and alk phos all within normal limits. Troponin negative. Covid swab as well as influenza swab negative. Vital signs fairly stable with blood pressures on the softer side. Orthostatic vital signs obtained standing 113/70, sitting 112/70, standing 112/70. EKG in the ER sinus rhythm with no acute ischemic changes. Chest x-ray revealed mild atelectasis and/or infiltrate to the left lung base. In the ER he was treated with 1 L NS bolus along with Rocephin and azithromycin. He will be admitted for community-acquired pneumonia and generalized weakness, diarrhea. PCP Dr. Smith Generalized Pain Score (Numeric/FACES): 2 - Related Data Allergies/Adverse Reactions: Allergies Allergy/AdvReac Type Severity Reaction Status Date / Time morphine Allergy Intermediate Itching Verified 02/05/21 14:53 Home Medications: Home Meds Clopidogrel Bisulfate [Clopidogrel] 75 mg PO QAM 02/07/17 [History] Diclofenac Sodium [IMW: Diclofenac Sodium] 75 mg PO BID PRN 02/07/17 [History] Cyanocobalamin (Vitamin B-12) [Cyanocobalamin Injection] 1,000 mcg IM ASDIRECTED 05/18/17 [History] Acetaminophen/HYDROcodone [Greene 325-5 MG] 1 tab PO Q6H PRN #20 tablet 05/19/17 [Rx] Ezetimibe 10 mg PO DAILY 02/05/21 [History] Finasteride 5 mg PO DAILY 02/05/21 [History] Furosemide 20 mg PO QAM 02/05/21 [History] Gabapentin [Neurontin] 300 mg PO ASDIRECTED 02/05/21 [History] Losartan [Cozaar] 50 mg PO DAILY 02/05/21 [History] Pramipexole [Mirapex] 2 tab PO BEDTIME 02/05/21 [History] Sertraline [Zoloft] 100 mg PO DAILY 02/05/21 [History] Tiotropium [Spiriva HandiHaler] 1 cap INH DAILY 02/05/21 [History] Past Medical History - Past Health History Medical/Surgical History: Denies Medical/Surgical History HEENT History: Reports: Impaired Vision Cardiovascular History: Reports: CAD, High Cholesterol, Hypertension, SC, Stents Other Cardiovascular History: 3 heart attacks, 3 stents Respiratory History: Reports: COPD Musculoskeletal History: Reports: Arthritis, Back Pain, Chronic Neurological History: Reports: CVA - Infectious Disease History Infectious Disease History: Reports: Chicken Pox, Measles, Mumps - Past Surgical History Cardiovascular Surgical History: Reports: Coronary Artery Stent Respiratory Surgical History: Reports: None GI Surgical History: Reports: Cholecystectomy, Hernia, Abdominal Other Neurological Surgeries/Procedures: CVA during cholecystectomy Musculoskeletal Surgical History: Reports: None Social & Family History - Family History Family Medical History: No Pertinent Family History - Tobacco Use Packs/Tins Daily: 4 - Caffeine Use Caffeine Use: Reports: Coffee Caffeine Use Comment: 3-4cups/day H&P Review of Systems - Review of Systems: Review Of Systems: See Below General: Reports: Malaise, Weakness (Generalized). Denies: Fever, Chills HEENT: Reports: Sinus Congestion. Denies: Ear Pain, Headaches, Sore Throat, Vertigo Pulmonary: Reports: Shortness of Breath, Cough. Denies: Sputum, Hemoptysis Cardiovascular: Reports: No Symptoms. Denies: Chest Pain, Palpitations, Lightheadedness Gastrointestinal: Reports: Diarrhea. Denies: Abdominal Pain, Black Stool, Bloody Stool, Nausea, Vomiting Genitourinary: Reports: No Symptoms. Denies: Dysuria, Frequency, Burning Musculoskeletal: Reports: No Symptoms Skin: Reports: No Symptoms Psychiatric: Reports: No Symptoms Neurological: Reports: No Symptoms Hematologic/Lymphatic: Reports: No Symptoms Immunologic: Reports: No Symptoms Exam - Exam Exam: See Below - Vital Signs Vital Signs: Last Vital Signs Temp 97.1 F 02/05/21 09:40 Pulse 74 02/05/21 13:23 Resp 18 02/05/21 13:23 BP 105/74 02/05/21 13:23 Pulse Ox 94 L 02/05/21 13:23 Orthostatic Blood Pressure [ 112/70 Standing] Orthostatic Blood Pressure [ 112/70 Sitting] Orthostatic Blood Pressure [ 113/73 Supine] Weight: 102.058 kg - Exam Quality Assessment: DVT Prophylaxis. No: Supplemental Oxygen General: Alert, Oriented, Cooperative HEENT: Conjunctiva Clear, Mucosa Moist & [place], Posterior Pharynx Clear Lungs: Normal Respiratory Effort, Decreased Breath Sounds (Bibasilar), Rhonchi (Left lower lung). No: Wheezing Cardiovascular: Regular Rate, Regular Rhythm Back Exam: Normal Inspection, Full Range of Motion Extremities: Normal Inspection, Normal Range of Motion, Non-Tender, No Pedal Edema, Normal Capillary Refill Neuro Extensive - Mental Status: Alert, Oriented x3 Neuro Extensive - Motor, Sensory, Reflexes: CN II-XII Intact Psychiatric: Alert, Normal Affect, Normal Mood - Patient Data Lab Results Last 24 hrs: Laboratory Results - last 24 hr 02/05/21 02/05/21 02/05/21 Range/Units 09:49 09:51 09:51 WBC 13.40 H (4.0-11.0) K/uL RBC 5.54 (4.50-5.90) M/uL Hgb 16.6 (13.0-17.0) g/dL Hct 50.4 H (38.0-50.0) % MCV 91.0 (80.0-98.0) fL MCH 30.0 (27.0-32.0) pg MCHC 32.9 (31.0-37.0) g/dL RDW Std Deviation 49.6 (28.0-62.0) fl RDW Coeff of Jeanette 15 (11.0-15.0) % Plt Count 205 (150-400) K/uL MPV 10.20 (7.40-12.00) fL Add Manual Diff YES Neutrophils % (Manual) 81 H (48.0-80.0) % Band Neutrophils % 2 % Lymphocytes % (Manual) 11 L (16.0-40.0) % Monocytes % (Manual) 1 (0.0-15.0) % Eosinophils % (Manual) 3 (0.0-7.0) % Basophils % (Manual) 2 H (0.0-1.5) % Absolute Seg Neuts 10.9 H (1.4-5.7) Band Neutrophils # 0.3 Lymphocytes # (Manual) 1.5 (0.6-2.4) Monocytes # (Manual) 0.1 (0.0-0.8) Eosinophils # (Manual) 0.4 (0.0-0.7) Basophils # (Manual) 0.3 H (0.0-0.1) Sodium 138 (136-148) mmol/L Potassium 4.6 (3.5-5.1) mmol/L Chloride 105 (98-107) mmol/L Carbon Dioxide 26.5 (21.0-32.0) mmol/L BUN 19 H (7.0-18.0) mg/dL Creatinine 1.3 (0.8-1.3) mg/dL Est Cr Clr Drug Dosing 53.81 mL/min Estimated GFR (MDRD) 54.4 ml/min Glucose 160 H (74-106) mg/dL POC Glucose 151 H (70-99) mg/dL Calcium 8.6 (8.5-10.1) mg/dL Total Bilirubin 1.0 (0.2-1.0) mg/dL AST 18 (15-37) IU/L ALT 36 (14-63) IU/L Alkaline Phosphatase 76 (46-116) U/L Troponin I < 0.050 (0.000-0.056) ng/mL Total Protein 7.1 (6.4-8.2) g/dL Albumin 3.7 (3.4-5.0) g/dL Globulin 3.4 (2.6-4.0) g/dL Albumin/Globulin Ratio 1.1 (0.9-1.6) Influenza Type A RNA (NEGATIVE) Influenza Type B RNA (NEGATIVE) SARS-CoV-2 RNA (NELLY) (NEGATIVE) 02/05/21 Range/Units 10:10 WBC (4.0-11.0) K/uL RBC (4.50-5.90) M/uL Hgb (13.0-17.0) g/dL Hct (38.0-50.0) % MCV (80.0-98.0) fL MCH (27.0-32.0) pg MCHC (31.0-37.0) g/dL RDW Std Deviation (28.0-62.0) fl RDW Coeff of Jeanette (11.0-15.0) % Plt Count (150-400) K/uL MPV (7.40-12.00) fL Add Manual Diff Neutrophils % (Manual) (48.0-80.0) % Band Neutrophils % % Lymphocytes % (Manual) (16.0-40.0) % Monocytes % (Manual) (0.0-15.0) % Eosinophils % (Manual) (0.0-7.0) % Basophils % (Manual) (0.0-1.5) % Absolute Seg Neuts (1.4-5.7) Band Neutrophils # Lymphocytes # (Manual) (0.6-2.4) Monocytes # (Manual) (0.0-0.8) Eosinophils # (Manual) (0.0-0.7) Basophils # (Manual) (0.0-0.1) Sodium (136-148) mmol/L Potassium (3.5-5.1) mmol/L Chloride (98-107) mmol/L Carbon Dioxide (21.0-32.0) mmol/L BUN (7.0-18.0) mg/dL Creatinine (0.8-1.3) mg/dL Est Cr Clr Drug Dosing mL/min Estimated GFR (MDRD) ml/min Glucose (74-106) mg/dL POC Glucose (70-99) mg/dL Calcium (8.5-10.1) mg/dL Total Bilirubin (0.2-1.0) mg/dL AST (15-37) IU/L ALT (14-63) IU/L Alkaline Phosphatase (46-116) U/L Troponin I (0.000-0.056) ng/mL Total Protein (6.4-8.2) g/dL Albumin (3.4-5.0) g/dL Globulin (2.6-4.0) g/dL Albumin/Globulin Ratio (0.9-1.6) Influenza Type A RNA NEGATIVE (NEGATIVE) Influenza Type B RNA NEGATIVE (NEGATIVE) SARS-CoV-2 RNA (NELLY) NEGATIVE (NEGATIVE) Result Diagrams: 02/05/21 09:51 02/05/21 09:51 Sepsis Event Note - Evaluation Sepsis Screening Result: No Definite Risk - Focused Exam Vital Signs: Vital Signs Temp Pulse Resp BP Pulse Ox 02/05/21 13:23 74 18 105/74 94 L 02/05/21 12:30 65 18 107/67 94 L 02/05/21 11:38 74 18 109/67 93 L 02/05/21 09:40 97.1 F 65 128/71 94 L - Problem List (1) CAP (community acquired pneumonia) SNOMED Code(s): 423973645 ICD Code: J18.9 - PNEUMONIA, UNSPECIFIED ORGANISM Status: Acute Current Visit: Yes Qualifiers: Laterality: left Lung location: lower lobe of lung Qualified Code(s): J18.9 - Pneumonia, unspecified organism (2) Near syncope SNOMED Code(s): 534469590 ICD Code: R55 - SYNCOPE AND COLLAPSE Status: Acute Current Visit: Yes (3) Diarrhea SNOMED Code(s): 71147246 ICD Code: R19.7 - DIARRHEA, UNSPECIFIED Status: Acute Current Visit: Yes Qualifiers: Diarrhea type: unspecified type Qualified Code(s): R19.7 - Diarrhea, unspecified (4) CAD (coronary artery disease) SNOMED Code(s): 52238039 ICD Code: I25.10 - ATHSCL HEART DISEASE OF [place] CORONARY ARTERY W/O ANG PCTRS Status: Acute Current Visit: Yes (5) CVA (cerebral vascular accident) SNOMED Code(s): 226618506 ICD Code: I63.9 - CEREBRAL INFARCTION, UNSPECIFIED Status: Acute Current Visit: Yes (6) HTN (hypertension) SNOMED Code(s): 76180659 ICD Code: I10 - ESSENTIAL (PRIMARY) HYPERTENSION Status: Acute Current Visit: Yes (7) COPD (chronic obstructive pulmonary disease) SNOMED Code(s): 29930285 ICD Code: J44.9 - CHRONIC OBSTRUCTIVE PULMONARY DISEASE, UNSPECIFIED Status: Acute Current Visit: Yes (8) Former smoker SNOMED Code(s): 6921161 ICD Code: Z87.891 - PERSONAL HISTORY OF NICOTINE DEPENDENCE Status: Acute Current Visit: Yes (9) History of heart artery stent SNOMED Code(s): 831613828, 954736939 ICD Code: Z95.5 - PRESENCE OF CORONARY ANGIOPLASTY IMPLANT AND GRAFT Status: Acute Current Visit: Yes (10) Carotid stenosis Status: Acute Current Visit: Yes Problem List Initiated/Reviewed/Updated: Yes Orders Last 24hrs: Active Orders 24 hr Category Date Time Status Admission Status [Patient Status] [ADT] Stat ADT 02/05/21 11:26 Active Height and Weight [RC] DAILY Care 02/05/21 13:39 Ordered Intake and Output [RC] QSHIFT Care 02/05/21 13:39 Ordered Oxygen Therapy [RC] PRN Care 02/05/21 13:39 Ordered RT Aerosol Therapy [RC] ASDIRECTED Care 02/05/21 13:41 Ordered Telemetry Monitoring [Cardiac Monitoring] [RC] . Care 02/05/21 13:42 Ordered DIRECTED Up With Assistance [RC] ASDIRECTED Care 02/05/21 13:39 Ordered Up to Chair [RC] ASDIRECTED Care 02/05/21 13:39 Ordered VTE/DVT Education [RC] PER UNIT ROUTINE Care 02/05/21 13:39 Ordered Vital Signs [RC] Q4H Care 02/05/21 13:39 Ordered PT Evaluation and Treatment [CONS] Routine Cons 02/05/21 13:39 Ordered Heart Healthy Diet [DIET] Diet 02/05/21 Lunch Ordered BASIC METABOLIC PANEL,BMP [CHEM] AM Lab 02/06/21 05:11 Ordered CBC WITH AUTO DIFF [HEME] AM Lab 02/06/21 05:11 Ordered MAGNESIUM [CHEM] AM Lab 02/06/21 05:11 Ordered PHOSPHORUS [CHEM] AM Lab 02/06/21 05:11 Ordered TROPONIN I [CHEM] Routine Lab 02/05/21 13:42 Ordered UA RFX YORDAN AND CULT IF INDIC [URIN] Stat Lab 02/05/21 09:57 Ordered Acetaminophen [TylenoL] Med 02/05/21 13:39 Ordered 650 mg PO Q4H PRN Albuterol/Ipratropium [DuoNeb 3.0-0.5 MG/3 ML] Med 02/05/21 13:39 Ordered 3 ml NEB Q4HRRT PRN Docusate Sodium [Colace] Med 02/05/21 13:39 Ordered 100 mg PO BID PRN Ondansetron [Zofran] Med 02/05/21 13:39 Ordered 4 mg IVPUSH Q4H PRN Sodium Chloride 0.9% [Normal Saline] 1,000 ml Med 02/05/21 09:58 Active IV STAT Sodium Chloride 0.9% [Saline Flush] Med 02/05/21 13:39 Ordered 2.5 ml FLUSH ASDIRECTED PRN Saline Lock Insert [OM.PC] Routine Oth 02/05/21 13:39 Ordered Medication Orders Acetaminophen (Acetaminophen 325 Mg Tab) 650 mg PO Q4H PRN PRN Reason: Pain (Mild 1-3)/fever Albuterol/Ipratropium (Albuterol/Ipratropium 3.0-0.5 Mg/3 Ml Neb Soln) 3 ml NEB Q4HRRT PRN PRN Reason: Shortness Of Breath/wheezing Docusate Sodium (Docusate Sodium 100 Mg Cap) 100 mg PO BID PRN PRN Reason: Constipation Sodium Chloride (Normal Saline) 1,000 mls @ 200 mls/hr IV STAT ONE Stop: 02/05/21 14:57 Last Admin: 02/05/21 10:20 Dose: 200 mls/hr Documented by: [id number] Ondansetron HCl (Ondansetron 4 Mg/2 Ml Sdv) 4 mg IVPUSH Q4H PRN PRN Reason: Nausea Sodium Chloride (Sodium Chloride 0.9% 2.5 Ml Syringe) 2.5 ml FLUSH ASDIRECTED PRN PRN Reason: Keep Vein Open Assessment/Plan Comment:: This 70-year-old male admitted with CAP, near syncope, and diarrhea 1. CAP -Continue Rocephin and azithromycin -DuoNebs every 4 hours as needed -Oxygen as needed keep sats greater than 88% -Encourage I-S use and coughing and deep breathing -Monitor lab work in a.m. 2. Near syncope -Could be related to diarrhea and dehydration -Orthostatic vital signs stable -Monitor on telemetry -Troponins x2 negative 3. Diarrhea -Obtain stool studies -No nausea and is tolerating diet well -Given 1 L normal saline in the ER will be careful with fluid resuscitation. Last LVEF was 65% with impaired relaxation. 4. CAD/CVA/carotid stenosis/hypertension -Hold Lasix and losartan due to softer blood pressures -Continue Plavix 5. COPD -Continue Spiriva 6. Restless legs -Continue Mirapex -Continue gabapentin VTE prophylaxis Lovenox CODE STATUS: Full code Dispo: 1 to 2 days pending improvement.
[2021-02-05] MEDS ORDERED: ACETAMINOPHEN PO PRN (15:31)
[2021-02-05] MEDS ORDERED: HYDROCODONE PO PRN (15:31)
[2021-02-05] MEDS ORDERED: Enoxaparin 40 MG/0.4 ML Syringe SUBCUT SCH (16:30)
[2021-02-05 16:33] LABS: HEMOGLOBIN A1C 5.6 %
[2021-02-05] MEDS ORDERED: Pramipexole 0.25 MG Tab PO PRN (21:00)
[2021-02-05] MEDS: Gabapentin 300 MG Cap PO SCH (21:42)
[2021-02-05] MEDS: Tiotropium Inhaler 18 MCG Inhalation Powder Cap Kit of 5 INH SCH (21:43)
[2021-02-05] MEDS ORDERED: Gabapentin 300 MG Cap PO SCH (22:00)
[2021-02-06 06:56] LABS: BLOOD UREA NITROGEN,BUN 10 mg/dL (7.0-18.0); CARBON DIOXIDE,CO2 27.7 mmol/L (21.0-32.0); CHLORIDE,CL 109 mmol/L (98-107); GLUCOSE RANDOM 93 mg/dL (74-106); POTASSIUM,K 4.4 mmol/L (3.5-5.1); SODIUM,NA 144 mmol/L (136-148)
[2021-02-06] MEDS ORDERED: Finasteride 5 MG Tab PO SCH (09:00)
[2021-02-06] MEDS ORDERED: Sertraline 100 MG Tab PO SCH (09:00)
[2021-02-06] MEDS ORDERED: Ezetimibe 10 MG Tab PO SCH (09:00)
[2021-02-06] MEDS ORDERED: Clopidogrel 75 MG Tab PO SCH (09:00)
[2021-02-06] MEDS: Tiotropium Inhaler 18 MCG Inhalation Powder Cap Kit of 5 INH SCH (09:04)
[2021-02-06 09:06] VITALS: BP 137/82; PULSE 72
[2021-02-06] MEDS: Gabapentin 300 MG Cap PO SCH (09:11)
[2021-02-06] MEDS ORDERED: Azithromycin 250 MG Tab PO SCH (11:00)
[2021-02-06] MEDS ORDERED: cefTRIAXone 1 GM in Premix Bag 1 BAG IV SCH (11:00)
--- NOTE | 2021-02-06 11:34 | PCM.DCSUM1 ---
Discharge Summary - Discharge Data Discharge Disposition: Home, Self-Care 01 Condition: Stable - Referral to Home Health Primary Care Physician: Iesha Smith MD - Patient Summary/Data Consults: Consultations 02/05/21 13:39 PT Evaluation and Treatment [CONS] Routine - Patient Instructions Diet: Heart Healthy Diet Driving: May Drive Today Showering/Bathing: May Shower Notify Provider of: Fever, Increased Pain, Swelling and Redness, Drainage, Nausea and/or Vomiting - Discharge Plan *PRESCRIPTION DRUG MONITORING PROGRAM REVIEWED*: No *COPY OF PRESCRIPTION DRUG MONITORING REPORT IN PATIENT MYCHAL: No Prescriptions/Med Rec: levoFLOXacin [Levaquin] 750 mg PO DAILY #7 tab Home Medications: Home Meds Clopidogrel Bisulfate [Clopidogrel] 75 mg PO QAM 02/07/17 [History] Diclofenac Sodium [IMW: Diclofenac Sodium] 75 mg PO BID PRN 02/07/17 [History] Cyanocobalamin (Vitamin B-12) [Cyanocobalamin Injection] 1,000 mcg IM ASDIRECTED 05/18/17 [History] Acetaminophen/HYDROcodone [[place] 325-5 MG] 1 tab PO Q6H PRN #20 tablet 05/19/17 [Rx] Ezetimibe 10 mg PO DAILY 02/05/21 [History] Finasteride 5 mg PO DAILY 02/05/21 [History] Furosemide 20 mg PO QAM 02/05/21 [History] Gabapentin [Neurontin] 300 mg PO ASDIRECTED 02/05/21 [History] Losartan [Cozaar] 50 mg PO DAILY 02/05/21 [History] Pramipexole [Mirapex] 2 tab PO BEDTIME 02/05/21 [History] Sertraline [Zoloft] 100 mg PO DAILY 02/05/21 [History] Tiotropium [Spiriva HandiHaler] 1 cap INH DAILY 02/05/21 [History] levoFLOXacin [Levaquin] 750 mg PO DAILY #7 tab 02/06/21 [Rx] Referrals: Iesha Smith MD [Primary Care Provider] - 03/08/21 3:30 pm - Patient Data Vitals - Most Recent: Last Vital Signs Temp 36.6 C 02/06/21 09:05 Pulse 72 02/06/21 09:05 Resp 16 02/06/21 09:05 BP 137/82 02/06/21 09:05 Pulse Ox 89 L 02/06/21 09:05 Orthostatic Blood Pressure [ 112/70 Standing] Orthostatic Blood Pressure [ 112/70 Sitting] Orthostatic Blood Pressure [ 113/73 Supine] Weight - Most Recent: 107.048 kg I&O - Last 24 hours: Intake & Output 02/05/21 02/06/21 02/06/21 22:59 06:59 14:59 Intake Total 1500 1450 Output Total 350 Balance 1150 1450 Lab Results - Last 24 hrs: Laboratory Results - last 24 hr 02/05/21 02/05/21 02/05/21 Range/Units 09:49 09:51 10:10 WBC (4.0-11.0) K/uL RBC (4.50-5.90) M/uL Hgb (13.0-17.0) g/dL Hct (38.0-50.0) % MCV (80.0-98.0) fL MCH (27.0-32.0) pg MCHC (31.0-37.0) g/dL RDW Std Deviation (28.0-62.0) fl RDW Coeff of Jeanette (11.0-15.0) % Plt Count (150-400) K/uL MPV (7.40-12.00) fL Neut % (Auto) (48.0-80.0) % Lymph % (Auto) (16.0-40.0) % [place] % (Auto) (0.0-15.0) % Eos % (Auto) (0.0-7.0) % Baso % (Auto) (0.0-1.5) % Neut # (Auto) (1.4-5.7) K/uL Lymph # (Auto) (0.6-2.4) K/uL [place] # (Auto) (0.0-0.8) K/uL Eos # (Auto) (0.0-0.7) K/uL Baso # (Auto) (0.0-0.1) K/uL Sodium (136-148) mmol/L Potassium (3.5-5.1) mmol/L Chloride (98-107) mmol/L Carbon Dioxide (21.0-32.0) mmol/L BUN (7.0-18.0) mg/dL Creatinine (0.8-1.3) mg/dL Est Cr Clr Drug Dosing mL/min Estimated GFR (MDRD) ml/min Glucose (74-106) mg/dL POC Glucose 151 H (70-99) mg/dL Hemoglobin A1c 5.6 (4.5 - 6.2) % Calcium (8.5-10.1) mg/dL Phosphorus (2.6-4.7) mg/dL Magnesium (1.8-2.4) mg/dL Troponin I (0.000-0.056) ng/mL Urine Color Urine Appearance Urine pH (5.0-8.0) Ur Specific [place] (1.001-1.035) Urine Protein (NEGATIVE) mg/dL Urine Glucose (UA) (NEGATIVE) mg/dL Urine Ketones (NEGATIVE) mg/dL Urine Occult Blood (NEGATIVE) Urine Nitrite (NEGATIVE) Urine Bilirubin (NEGATIVE) Urine Urobilinogen (<2.0) EU/dL Ur Leukocyte Esterase (NEGATIVE) Urine RBC (0-2/HPF) Urine WBC (0-5/HPF) Ur Epithelial Cells (NONE-FEW) Urine Bacteria (NEGATIVE) Influenza Type A RNA NEGATIVE (NEGATIVE) Influenza Type B RNA NEGATIVE (NEGATIVE) SARS-CoV-2 RNA (NELLY) NEGATIVE (NEGATIVE) 02/05/21 02/05/21 02/06/21 Range/Units 13:55 16:00 06:00 WBC 10.27 (4.0-11.0) K/uL RBC 5.15 (4.50-5.90) M/uL Hgb 15.6 (13.0-17.0) g/dL Hct 47.4 (38.0-50.0) % MCV 92.0 (80.0-98.0) fL MCH 30.3 (27.0-32.0) pg MCHC 32.9 (31.0-37.0) g/dL RDW Std Deviation 50.3 (28.0-62.0) fl RDW Coeff of Jeanette 15 (11.0-15.0) % Plt Count 191 (150-400) K/uL MPV 10.30 (7.40-12.00) fL Neut % (Auto) 67.5 (48.0-80.0) % Lymph % (Auto) 20.5 (16.0-40.0) % [place] % (Auto) 7.2 (0.0-15.0) % Eos % (Auto) 3.7 (0.0-7.0) % Baso % (Auto) 1.1 (0.0-1.5) % Neut # (Auto) 6.9 H (1.4-5.7) K/uL Lymph # (Auto) 2.1 (0.6-2.4) K/uL [place] # (Auto) 0.7 (0.0-0.8) K/uL Eos # (Auto) 0.4 (0.0-0.7) K/uL Baso # (Auto) 0.1 (0.0-0.1) K/uL Sodium (136-148) mmol/L Potassium (3.5-5.1) mmol/L Chloride (98-107) mmol/L Carbon Dioxide (21.0-32.0) mmol/L BUN (7.0-18.0) mg/dL Creatinine (0.8-1.3) mg/dL Est Cr Clr Drug Dosing mL/min Estimated GFR (MDRD) ml/min Glucose (74-106) mg/dL POC Glucose (70-99) mg/dL Hemoglobin A1c (4.5 - 6.2) % Calcium (8.5-10.1) mg/dL Phosphorus (2.6-4.7) mg/dL Magnesium (1.8-2.4) mg/dL Troponin I < 0.050 (0.000-0.056) ng/mL Urine Color YELLOW Urine Appearance CLEAR Urine pH 6.5 (5.0-8.0) Ur Specific [place] 1.025 (1.001-1.035) Urine Protein NEGATIVE (NEGATIVE) mg/dL Urine Glucose (UA) NEGATIVE (NEGATIVE) mg/dL Urine Ketones NEGATIVE (NEGATIVE) mg/dL Urine Occult Blood NEGATIVE (NEGATIVE) Urine Nitrite NEGATIVE (NEGATIVE) Urine Bilirubin NEGATIVE (NEGATIVE) Urine Urobilinogen 0.2 (<2.0) EU/dL Ur Leukocyte Esterase TRACE H (NEGATIVE) Urine RBC 0-1 (0-2/HPF) Urine WBC 0-1 (0-5/HPF) Ur Epithelial Cells RARE (NONE-FEW) Urine Bacteria RARE (NEGATIVE) Influenza Type A RNA (NEGATIVE) Influenza Type B RNA (NEGATIVE) SARS-CoV-2 RNA (NELLY) (NEGATIVE) 02/06/21 Range/Units 06:00 WBC (4.0-11.0) K/uL RBC (4.50-5.90) M/uL Hgb (13.0-17.0) g/dL Hct (38.0-50.0) % MCV (80.0-98.0) fL MCH (27.0-32.0) pg MCHC (31.0-37.0) g/dL RDW Std Deviation (28.0-62.0) fl RDW Coeff of Jeanette (11.0-15.0) % Plt Count (150-400) K/uL MPV (7.40-12.00) fL Neut % (Auto) (48.0-80.0) % Lymph % (Auto) (16.0-40.0) % [place] % (Auto) (0.0-15.0) % Eos % (Auto) (0.0-7.0) % Baso % (Auto) (0.0-1.5) % Neut # (Auto) (1.4-5.7) K/uL Lymph # (Auto) (0.6-2.4) K/uL [place] # (Auto) (0.0-0.8) K/uL Eos # (Auto) (0.0-0.7) K/uL Baso # (Auto) (0.0-0.1) K/uL Sodium 144 (136-148) mmol/L Potassium 4.4 (3.5-5.1) mmol/L Chloride 109 H (98-107) mmol/L Carbon Dioxide 27.7 (21.0-32.0) mmol/L BUN 10 (7.0-18.0) mg/dL Creatinine 1.0 (0.8-1.3) mg/dL Est Cr Clr Drug Dosing 67.75 mL/min Estimated GFR (MDRD) > 60.0 ml/min Glucose 93 (74-106) mg/dL POC Glucose (70-99) mg/dL Hemoglobin A1c (4.5 - 6.2) % Calcium 8.1 L (8.5-10.1) mg/dL Phosphorus 3.8 (2.6-4.7) mg/dL Magnesium 2.1 (1.8-2.4) mg/dL Troponin I (0.000-0.056) ng/mL Urine Color Urine Appearance Urine pH (5.0-8.0) Ur Specific [place] (1.001-1.035) Urine Protein (NEGATIVE) mg/dL Urine Glucose (UA) (NEGATIVE) mg/dL Urine Ketones (NEGATIVE) mg/dL Urine Occult Blood (NEGATIVE) Urine Nitrite (NEGATIVE) Urine Bilirubin (NEGATIVE) Urine Urobilinogen (<2.0) EU/dL Ur Leukocyte Esterase (NEGATIVE) Urine RBC (0-2/HPF) Urine WBC (0-5/HPF) Ur Epithelial Cells (NONE-FEW) Urine Bacteria (NEGATIVE) Influenza Type A RNA (NEGATIVE) Influenza Type B RNA (NEGATIVE) SARS-CoV-2 RNA (NELLY) (NEGATIVE) [place] Results - Last 24 hrs: Microbiology 02/05/21 21:04 C. difficile Antigen & Toxins A,B - Final Stool / Feces Med Orders - Current: Current Medications Acetaminophen (Acetaminophen 325 Mg Tab) 650 mg PO Q4H PRN PRN Reason: Pain (Mild 1-3)/fever Albuterol/Ipratropium (Albuterol/Ipratropium 3.0-0.5 Mg/3 Ml Neb Soln) 3 ml NEB Q4HRRT PRN PRN Reason: Shortness Of Breath/wheezing Azithromycin (Azithromycin 250 Mg Tab) 500 mg PO Q24H [facility] Last Admin: 02/06/21 10:40 Dose: 500 mg Documented by: Clopidogrel Bisulfate (Clopidogrel 75 Mg Tab) 75 mg PO QAM [facility] Last Admin: 02/06/21 09:11 Dose: 75 mg Documented by: Docusate Sodium (Docusate Sodium 100 Mg Cap) 100 mg PO BID PRN PRN Reason: Constipation Ezetimibe (Ezetimibe 10 Mg Tab) 10 mg PO DAILY [facility] Last Admin: 02/06/21 09:11 Dose: 10 mg Documented by: Enoxaparin Sodium (Enoxaparin 40 Mg/0.4 Ml Syringe) 40 mg SUBCUT Q24H [facility] Last Admin: 02/05/21 17:22 Dose: 40 mg Documented by: Finasteride (Finasteride 5 Mg Tab) 5 mg PO DAILY [facility] Last Admin: 02/06/21 09:11 Dose: 5 mg Documented by: Gabapentin (Gabapentin 300 Mg Cap) 300 mg PO BID [facility] Last Admin: 02/06/21 09:11 Dose: 300 mg Documented by: Ceftriaxone Sodium/Dextrose 1 (gm/ Premix) 50 mls @ 100 mls/hr IV Q24H [facility] Last Admin: 02/06/21 10:41 Dose: 100 mls/hr Documented by: Ondansetron HCl (Ondansetron 4 Mg/2 Ml Sdv) 4 mg IVPUSH Q4H PRN PRN Reason: Nausea Pramipexole Dihydrochloride (Pramipexole 0.25 Mg Tab) 0.5 mg PO BEDTIME PRN PRN Reason: RESTLESS LEGS Sertraline HCl (Sertraline 100 Mg Tab) 100 mg PO DAILY [facility] Last Admin: 02/06/21 09:11 Dose: 100 mg Documented by: Sodium Chloride (Sodium Chloride 0.9% 2.5 Ml Syringe) 2.5 ml FLUSH ASDIRECTED PRN PRN Reason: Keep Vein Open Tiotropium [place] (Tiotropium Inhaler 18 Mcg Inhalation Powder Cap Kit Of 5) 18 mcg INH BEDTIME [facility] Last Admin: 02/06/21 09:04 Dose: 1 cap Documented by: Discontinued Medications Gabapentin (Gabapentin 300 Mg Cap) 300 mg PO TID [facility] Sodium Chloride (Normal Saline) 1,000 mls @ 200 mls/hr IV STAT ONE Stop: 02/05/21 14:57 Last Admin: 02/05/21 10:20 Dose: 200 mls/hr Documented by: Ceftriaxone Sodium/Dextrose 1 (gm/ Premix) 50 mls @ 100 mls/hr IV ONETIME ONE Stop: 02/05/21 12:15 Last Admin: 02/05/21 13:09 Dose: 100 mls/hr Documented by: Azithromycin 500 mg/ Sodium (Chloride) 250 mls @ 250 mls/hr IV NOW STA Stop: 02/05/21 12:45 Last Admin: 02/05/21 13:17 Dose: 250 mls/hr Documented by: Sodium Chloride (Normal Saline) 1,000 mls @ 100 mls/hr IV ONETIME ONE Stop: 02/06/21 02:13 Last Admin: 02/05/21 16:55 Dose: 100 mls/hr Documented by: Non-Formulary Medication (Acetaminophen/Hydrocodone) 1 tab PO Q6H PRN PRN Reason: Pain
== END 2021-02-06 12:18 | disposition home or self-care (01) ==
LOC: MW.ED 09:30 → MW.MS 11:26
PROVIDERS: ADMIT Student in an Organized Health Care Education/Training Program; ATTEND Student in an Organized Health Care Education/Training Program
DX: R55 Syncope and collapse (principal); J18.9 Pneumonia, unspecified organism; J44.9 Chronic obstructive pulmonary disease, unspecified; I25.10 Atherosclerotic heart disease of native coronary artery without angina pectoris; D72.829 Elevated white blood cell count, unspecified; E78.00 Pure hypercholesterolemia, unspecified; I10 Essential (primary) hypertension; I25.2 Old myocardial infarction; R19.7 Diarrhea, unspecified; I65.29 Occlusion and stenosis of unspecified carotid artery; Z20.822 Contact with and (suspected) exposure to COVID-19; Z87.891 Personal history of nicotine dependence; Z88.5 Allergy status to narcotic agent; Z86.73 Personal history of transient ischemic attack (TIA), and cerebral infarction without residual deficits; Z95.5 Presence of coronary angioplasty implant and graft
CPT/HCPCS: 0240U; 36415; 71045; 80048; 80053; 81001; 82947; 83036; 83735; 84100; 84484; 85025; 87045; 87046; 87086; 87324; 87449; 87899; 93005; A9270; J0456; J0696; J1650; J7030; J7050; 93010; 96365; 96372; 96375; 96376; 99284; 99285-25; G0378

== ENCOUNTER 2021-05-21 16:45 | Emergency (ER) | payer MEDICARE, OTHER ==
[2021-05-21] MEDS ORDERED: Sodium Chloride 0.9% 2.5 ML Syringe FLUSH PRN (16:57)
[2021-05-21] MEDS ORDERED: Sodium Chloride 0.9% 10 ML Syringe FLUSH PRN (16:57)
--- NOTE | 2021-05-21 17:06 | EDM.PDOC ---
<ThelmaAyesha - Last Filed: 05/22/21 03:59> ED HPI GENERAL MEDICAL PROBLEM - General Chief Complaint: Eye Problems Stated Complaint: having some syptoms of stroke Time Seen by Provider: 05/21/21 19:00 - History of Present Illness INITIAL COMMENTS - FREE TEXT/NARRATIVE: Visual acuity left eye 20/30, right eye 20/25 - Related Data Allergies Allergy/AdvReac Type Severity Reaction Status Date / Time morphine Allergy Intermediate Itching Verified 05/21/21 17:15 Home Meds: Home Meds Clopidogrel Bisulfate [Clopidogrel] 75 mg PO QAM 02/07/17 [History] Diclofenac Sodium [IMW: Diclofenac Sodium] 75 mg PO BID PRN 02/07/17 [History] Cyanocobalamin (Vitamin B-12) [Cyanocobalamin Injection] 1,000 mcg IM ASDIRECTED 05/18/17 [History] Acetaminophen/HYDROcodone [[place] 325-5 MG] 1 tab PO Q6H PRN #20 tablet 05/19/17 [Rx] Ezetimibe 10 mg PO DAILY 02/05/21 [History] Finasteride 5 mg PO DAILY 02/05/21 [History] Furosemide 20 mg PO QAM 02/05/21 [History] Gabapentin [Neurontin] 300 mg PO ASDIRECTED 02/05/21 [History] Losartan [Cozaar] 50 mg PO DAILY 02/05/21 [History] Pramipexole [Mirapex] 2 tab PO BEDTIME 02/05/21 [History] Sertraline [Zoloft] 100 mg PO DAILY 02/05/21 [History] Tiotropium [Spiriva HandiHaler] 1 cap INH DAILY 02/05/21 [History] levoFLOXacin [Levaquin] 750 mg PO DAILY #7 tab 02/06/21 [Rx] ED ROS GENERAL - Review of Systems Review Of Systems: See Below (See dictation) ED EXAM GENERAL W FULL EYE - Physical Exam Exam: See Below (See dictation) Course - Vital Signs Text/Narrative:: CT brain with no acute findings, old stroke seen. CT angio shows no acute large vessel occlusion, does show occlusion of the right carotid and narrowing of the left. This was compared to prior imaging, the patient had an MRA in December 2019 which showed the same occlusion area. Patient in no distress. He has been able to ambulate to the bathroom without difficulty. His symptoms are improving though not completely resolved/back to his baseline. Therefore he will be admitted for further neurologic work-up. As there is no neurologist at this facility he will be transferred to [facility] for further evaluation. This w as discussed with the neurologist who reviewed the images and agrees with this plan. As the patient's visual symptoms have been ongoing all day, for many hours and started 2 days ago, the patient does not meet TPA criteria. - Re-Assessments/Exams Free Text/Narrative Re-Assessment/Exam: 05/21/21 21:35 I reexamined the patient. He is in no acute distress. He reports his symptoms have slightly improved although not back to prior baseline levels after his old stroke. Does still have mild vertigo symptoms but this is slightly improved and he did just receive the meclizine. He does report that the visual defect has slightly improved, the visual field that was about 50% on the right has improved to be only about 30% now but still more than it was after his old stroke. Discussed CT findings. Discussed recommendation for transfer to [facility] for neurologic evaluation. They agree with this plan. 05/21/21 21:[address] Ni, neurology at [facility] for transfer. He requested to send the images and he will review them. Images were sent. 05/21/21 22:47 Dr Ni accepts the patient to [facility] 05/21/21 22:49 Dr Hernandez, ER physician accepts Departure - Departure Time of Disposition: 22:49 Disposition: DC/Tfer to Acute Hospital 02 Preliminary Cause of *Q: Other_Special Instruction (N/A) Clinical Impression: Vision changes, Vertigo - Discharge Information Referrals: PCP,None [Primary Care Provider] - Forms: ED Department Discharge <Todd Campbell - Last Filed: 05/23/21 03:59> ED HPI GENERAL MEDICAL PROBLEM - General Source of Information: Reports: Patient - History of Present Illness INITIAL COMMENTS - FREE TEXT/NARRATIVE: Patient presents complaining of dizziness and decreased vision and fatigue. Starting about 2 days ago patient started having significant vertigo. Patient has had vertigo in the past but has not had it in a while. He has had intermittent loss of vision in his right eye as well as some intermittent blurry vision in his left eye. Patient did have an old stroke at the time and after that stroke patient had some loss of peripheral vision in his right eye but he states it is even more so now. Patient denies any slurred speech or arm/leg numbness/weakness. Patient states over the last 2 days he has felt very fatigued and rundown like he could sleep. Patient states he is normally not like that. Patient denies any fevers. There is cough but no productive sputum. No shortness of breath. Patient has a history of hypertension diabetes, CVA, COPD. Patient denies any abdominal pain or diarrhea. No pain with urination. Patient's dizziness is worse when he moves his head. Patient states that he has had some aching neck and shoulder pain. Patient states the lights intermittently bothers his eyes and he has had that in the past as well. Past Medical History - Past Health History Medical/Surgical History: Denies Medical/Surgical History HEENT History: Reports: Impaired Vision Other HEENT History: Loss of peripheral vision Cardiovascular History: Reports: CAD, High Cholesterol, Hypertension, [place], Stents Other Cardiovascular History: 3 heart attacks, 3 stents Respiratory History: Reports: COPD Genitourinary History: Reports: Other (See Below) Other Genitourinary History: Enlarged prostate Musculoskeletal History: Reports: Arthritis, Back Pain, Chronic Neurological History: Reports: CVA Endocrine/Metabolic History: Reports: Obesity/BMI 30+ Dermatologic History: Reports: Psoriasis - Infectious Disease History Infectious Disease History: Reports: Chicken Pox, Measles, Mumps - Past Surgical History HEENT Surgical History: Reports: Adenoidectomy, Tonsillectomy Cardiovascular Surgical History: Reports: Coronary Artery Stent Respiratory Surgical History: Reports: None GI Surgical History: Reports: Appendectomy, Cholecystectomy, Colonoscopy, Hernia, Abdominal Other Neurological Surgeries/Procedures: CVA during cholecystectomy Musculoskeletal Surgical History: Reports: Knee Replacement Social & Family History - Family History Family Medical History: No Pertinent Family History - Caffeine Use Caffeine Use: Reports: Coffee Caffeine Use Comment: 3-4cups/day ED ROS GENERAL - Review of Systems Review Of Systems: See Below Cardiovascular: Reports: Other (Remittent chest pain for a couple of weeks) Neurological: Reports: Other ED EXAM GENERAL W FULL EYE - Physical Exam Exam: See Below Text/Narrative:: CONSTITUTIONAL: well appearing in no acute distress SKIN: Warm, dry, and intact without rash HENT: Normocephalic, atraumatic, PULMONARY: clear to ausculation bilaterally. No rales, rhonchi, wheezing CARDIOVASCULAR: regular rate, No murmur, rubs, or gallops GASTROINTESTINAL: soft, nondistended, nontender NEUROLOGIC: normal speech, light touch/5/5 power equal and symmetric in upper and lower extremities without deficit. Patient has decreased vision to his right eye. Patient essentially does not have significant peripheral vision to the right side. No neglect. Patient able to read. Patient was described contacts without difficulty MUSCULOSKELETAL: no gross deformities, atraumatic PSYCHIATRIC: normal mood and affect #1 Interpretation EKG Date: 05/21/21 Time: 17:33 EKG Interpretation Comments: EKG: NSR, nonspecific ST/T changes, Rate -82 Course - Vital Signs Text/Narrative:: Vertigo, psychiatric illness, CVA, intracranial hemorrhage, complex migraine h eadache, infection with recrudescence of old stroke, other Patient presents with 2 days of symptoms outlined above. Symptoms are somewhat suggestive of deficits patient had during the old stroke and the patient has a temperature elevation. There could be consideration for recrudescence of old stroke symptoms in the setting of infection. Nonetheless the patient's symptoms are substantial thus CT and CT angio performed. Consideration of other etiologies also need to be explored. Work-up is in progress. SHAMIKA Renee 7pm Last Recorded V/S: Last Vital Signs Temp 36.6 C 05/21/21 16:48 Pulse 71 05/22/21 00:55 Resp 15 05/22/21 00:55 BP 135/77 05/22/21 00:55 Pulse Ox 92 L 05/22/21 00:55 - Orders/Labs/Meds Labs: Laboratory Tests 05/21/21 05/21/21 05/21/21 Range/Units 17:10 17:10 17:10 WBC 8.89 (4.0-11.0) K/uL RBC 5.54 (4.50-5.90) M/uL Hgb 17.0 (13.0-17.0) g/dL Hct 50.4 H (38.0-50.0) % MCV 91.0 (80.0-98.0) fL MCH 30.7 (27.0-32.0) pg MCHC 33.7 (31.0-37.0) g/dL RDW Std Deviation 48.8 (28.0-62.0) fl RDW Coeff of Jeanette 15 (11.0-15.0) % Plt Count 191 (150-400) K/uL MPV 10.70 (7.40-12.00) fL Neut % (Auto) 66.6 (48.0-80.0) % Lymph % (Auto) 22.7 (16.0-40.0) % [place] % (Auto) 6.1 (0.0-15.0) % Eos % (Auto) 3.9 (0.0-7.0) % Baso % (Auto) 0.7 (0.0-1.5) % Neut # (Auto) 5.9 H (1.4-5.7) K/uL Lymph # (Auto) 2.0 (0.6-2.4) K/uL [place] # (Auto) 0.5 (0.0-0.8) K/uL Eos # (Auto) 0.4 (0.0-0.7) K/uL Baso # (Auto) 0.1 (0.0-0.1) K/uL Nucleated RBC % 0.0 /100WBC Nucleated RBCs # 0 K/uL INR 0.99 Sodium 141 (136-148) mmol/L Potassium 4.0 (3.5-5.1) mmol/L Chloride 106 (98-107) mmol/L Carbon Dioxide 26.7 (21.0-32.0) mmol/L BUN 12 (7.0-18.0) mg/dL Creatinine 1.1 (0.8-1.3) mg/dL Est Cr Clr Drug Dosing TNP Estimated GFR (MDRD) > 60.0 ml/min Glucose 118 H (74-106) mg/dL Lactic Acid (0.4-2.0) mmol/L Calcium 8.7 (8.5-10.1) mg/dL Total Bilirubin 0.8 (0.2-1.0) mg/dL AST 27 (15-37) IU/L ALT 38 (14-63) IU/L Alkaline Phosphatase 79 (46-116) U/L Total Protein 6.7 (6.4-8.2) g/dL Albumin 3.9 (3.4-5.0) g/dL Globulin 2.8 (2.6-4.0) g/dL Albumin/Globulin Ratio 1.4 (0.9-1.6) Urine Color Urine Appearance Urine pH (5.0-8.0) Ur Specific [place] (1.001-1.035) Urine Protein (NEGATIVE) mg/dL Urine Glucose (UA) (NEGATIVE) mg/dL Urine Ketones (NEGATIVE) mg/dL Urine Occult Blood (NEGATIVE) Urine Nitrite (NEGATIVE) Urine Bilirubin (NEGATIVE) Urine Urobilinogen (<2.0) EU/dL Ur Leukocyte Esterase (NEGATIVE) Urine Opiates Screen (NEGATIVE) Ur Oxycodone Screen (NEGATIVE) Urine Methadone Screen (NEGATIVE) Ur Barbiturates Screen (NEGATIVE) Ur Phencyclidine Scrn (NEGATIVE) Ur Amphetamine Screen (NEGATIVE) U Methamphetamines Scrn (NEGATIVE) U Benzodiazepines Scrn (NEGATIVE) U Cocaine Metab Screen (NEGATIVE) U Marijuana (THC) Screen (NEGATIVE) Ethyl Alcohol < 3.0 mg/dL Influenza Type A RNA (NEGATIVE) Influenza Type B RNA (NEGATIVE) SARS-CoV-2 RNA (NELLY) (NEGATIVE) 05/21/21 05/21/21 05/21/21 Range/Units 17:10 17:11 17:37 WBC (4.0-11.0) K/uL RBC (4.50-5.90) M/uL Hgb (13.0-17.0) g/dL Hct (38.0-50.0) % MCV (80.0-98.0) fL MCH (27.0-32.0) pg MCHC (31.0-37.0) g/dL RDW Std Deviation (28.0-62.0) fl RDW Coeff of Jeanette (11.0-15.0) % Plt Count (150-400) K/uL MPV (7.40-12.00) fL Neut % (Auto) (48.0-80.0) % Lymph % (Auto) (16.0-40.0) % [place] % (Auto) (0.0-15.0) % Eos % (Auto) (0.0-7.0) % Baso % (Auto) (0.0-1.5) % Neut # (Auto) (1.4-5.7) K/uL Lymph # (Auto) (0.6-2.4) K/uL [place] # (Auto) (0.0-0.8) K/uL Eos # (Auto) (0.0-0.7) K/uL Baso # (Auto) (0.0-0.1) K/uL Nucleated RBC % /100WBC Nucleated RBCs # K/uL INR Sodium (136-148) mmol/L Potassium (3.5-5.1) mmol/L Chloride (98-107) mmol/L Carbon Dioxide (21.0-32.0) mmol/L BUN (7.0-18.0) mg/dL Creatinine (0.8-1.3) mg/dL Est Cr Clr Drug Dosing Estimated GFR (MDRD) ml/min Glucose (74-106) mg/dL Lactic Acid 1.4 (0.4-2.0) mmol/L Calcium (8.5-10.1) mg/dL Total Bilirubin (0.2-1.0) mg/dL AST (15-37) IU/L ALT (14-63) IU/L Alkaline Phosphatase (46-116) U/L Total Protein (6.4-8.2) g/dL Albumin (3.4-5.0) g/dL Globulin (2.6-4.0) g/dL Albumin/Globulin Ratio (0.9-1.6) Urine Color Urine Appearance Urine pH (5.0-8.0) Ur Specific [place] (1.001-1.035) Urine Protein (NEGATIVE) mg/dL Urine Glucose (UA) (NEGATIVE) mg/dL Urine Ketones (NEGATIVE) mg/dL Urine Occult Blood (NEGATIVE) Urine Nitrite (NEGATIVE) Urine Bilirubin (NEGATIVE) Urine Urobilinogen (<2.0) EU/dL Ur Leukocyte Esterase (NEGATIVE) Urine Opiates Screen NEGATIVE (NEGATIVE) Ur Oxycodone Screen NEGATIVE (NEGATIVE) Urine Methadone Screen NEGATIVE (NEGATIVE) Ur Barbiturates Screen NEGATIVE (NEGATIVE) Ur Phencyclidine Scrn NEGATIVE (NEGATIVE) Ur Amphetamine Screen NEGATIVE (NEGATIVE) U Methamphetamines Scrn NEGATIVE (NEGATIVE) U Benzodiazepines Scrn NEGATIVE (NEGATIVE) U Cocaine Metab Screen NEGATIVE (NEGATIVE) U Marijuana (THC) Screen POSITIVE (NEGATIVE) Ethyl Alcohol mg/dL Influenza Type A RNA NEGATIVE (NEGATIVE) Influenza Type B RNA NEGATIVE (NEGATIVE) SARS-CoV-2 RNA (NELLY) NEGATIVE (NEGATIVE) 05/21/21 Range/Units 17:37 WBC (4.0-11.0) K/uL RBC (4.50-5.90) M/uL Hgb (13.0-17.0) g/dL Hct (38.0-50.0) % MCV (80.0-98.0) fL MCH (27.0-32.0) pg MCHC (31.0-37.0) g/dL RDW Std Deviation (28.0-62.0) fl RDW Coeff of Jeanette (11.0-15.0) % Plt Count (150-400) K/uL MPV (7.40-12.00) fL Neut % (Auto) (48.0-80.0) % Lymph % (Auto) (16.0-40.0) % [place] % (Auto) (0.0-15.0) % Eos % (Auto) (0.0-7.0) % Baso % (Auto) (0.0-1.5) % Neut # (Auto) (1.4-5.7) K/uL Lymph # (Auto) (0.6-2.4) K/uL [place] # (Auto) (0.0-0.8) K/uL Eos # (Auto) (0.0-0.7) K/uL Baso # (Auto) (0.0-0.1) K/uL Nucleated RBC % /100WBC Nucleated RBCs # K/uL INR Sodium (136-148) mmol/L Potassium (3.5-5.1) mmol/L Chloride (98-107) mmol/L Carbon Dioxide (21.0-32.0) mmol/L BUN (7.0-18.0) mg/dL Creatinine (0.8-1.3) mg/dL Est Cr Clr Drug Dosing Estimated GFR (MDRD) ml/min Glucose (74-106) mg/dL Lactic Acid (0.4-2.0) mmol/L Calcium (8.5-10.1) mg/dL Total Bilirubin (0.2-1.0) mg/dL AST (15-37) IU/L ALT (14-63) IU/L Alkaline Phosphatase (46-116) U/L Total Protein (6.4-8.2) g/dL Albumin (3.4-5.0) g/dL Globulin (2.6-4.0) g/dL Albumin/Globulin Ratio (0.9-1.6) Urine Color YELLOW Urine Appearance CLEAR Urine pH 5.5 (5.0-8.0) Ur Specific [place] 1.020 (1.001-1.035) Urine Protein NEGATIVE (NEGATIVE) mg/dL Urine Glucose (UA) NEGATIVE (NEGATIVE) mg/dL Urine Ketones NEGATIVE (NEGATIVE) mg/dL Urine Occult Blood NEGATIVE (NEGATIVE) Urine Nitrite NEGATIVE (NEGATIVE) Urine Bilirubin NEGATIVE (NEGATIVE) Urine Urobilinogen 0.2 (<2.0) EU/dL Ur Leukocyte Esterase NEGATIVE (NEGATIVE) Urine Opiates Screen (NEGATIVE) Ur Oxycodone Screen (NEGATIVE) Urine Methadone Screen (NEGATIVE) Ur Barbiturates Screen (NEGATIVE) Ur Phencyclidine Scrn (NEGATIVE) Ur Amphetamine Screen (NEGATIVE) U Methamphetamines Scrn (NEGATIVE) U Benzodiazepines Scrn (NEGATIVE) U Cocaine Metab Screen (NEGATIVE) U Marijuana (THC) Screen (NEGATIVE) Ethyl Alcohol mg/dL Influenza Type A RNA (NEGATIVE) Influenza Type B RNA (NEGATIVE) SARS-CoV-2 RNA (NELLY) (NEGATIVE) Meds: Medications Discontinued Medications Generic Name Dose Route Start Last Admin Trade Name Lico PRN Reason Stop Dose Admin Aspirin 325 mg 05/21/21 22:45 05/22/21 00:11 Aspirin 325 Mg Tab PO 05/21/21 22:46 325 mg ONETIME ONE Administration Iopamidol 100 ml 05/21/21 18:50 05/21/21 19:25 Iopamidol 755 Mg/Ml 500 Ml Multipack Bottle IVPUSH 05/21/21 18:51 100 ml ONETIME STA Administration Meclizine HCl 25 mg 05/21/21 19:02 05/21/21 21:21 Meclizine 25 Mg Tab PO 05/21/21 19:03 25 mg ONETIME ONE Administration Meclizine HCl Confirm 05/21/21 21:19 05/21/21 21:22 Meclizine 25 Mg Tab Administered 05/21/21 21:20 Not Given Dose 25 mg .ROUTE .STK-MED ONE Sodium Chloride 10 ml 05/21/21 16:57 05/21/21 17:31 Sodium Chloride 0.9% 10 Ml Syringe FLUSH 10 ml ASDIRECTED PRN Administration Keep Vein Open Sodium Chloride 2.5 ml 05/21/21 16:57 05/21/21 17:31 Sodium Chloride 0.9% 2.5 Ml Syringe FLUSH 2.5 ml ASDIRECTED PRN Administration Keep Vein Open
[2021-05-21 17:43] LABS: BLOOD UREA NITROGEN,BUN 12 mg/dL (7.0-18.0); CARBON DIOXIDE,CO2 26.7 mmol/L (21.0-32.0); CHLORIDE,CL 106 mmol/L (98-107); GLUCOSE RANDOM 118 mg/dL (74-106); SODIUM,NA 141 mmol/L (136-148)
[2021-05-21 18:06] LABS: CORONAVIRUS COVID-19 NAA NEGATIVE (NEGATIVE); INFLUENZA A NAA NEGATIVE (NEGATIVE); INFLUENZA B NAA NEGATIVE (NEGATIVE)
[2021-05-21] MEDS ORDERED: Iopamidol 755 MG/ML 500 ML Multipack Bottle IVPUSH STA (18:50)
[2021-05-21] MEDS ORDERED: Meclizine 25 MG Tab PO ONE (19:02)
--- NOTE | 2021-05-21 19:13 | CR ---
Indication: Chest pain Technique: Chest 1 view Comparison: February 05, 2021 Findings/Impression: Stable cardiomediastinal silhouette. Normal pulmonary vasculature. Scattered calcified granulomata. Minimal linear atelectasis or scarring at both lung bases. No focal infiltrate, effusion, or pneumothorax. No acute osseous abnormality. Dictated by Sarah oCok MD @ 05/21/2021 7:11:[address] Sarah Cook @ May 21 2021 7:11PM
--- NOTE | 2021-05-21 19:49 | CT ---
DATE: 05/21/2021. CLINICAL HISTORY: Patient with visual changes; history of stroke. TECHNIQUE: Standard helical CT image acquisition of the brain following by standard helical CT image acquisition through the head and neck after intravenous contrast bolus enhancement. Multiplanar reconstructed images performed on a separate workstation. COMPARISON: CTA neck dated 03/19/2020. FINDINGS: CT HEAD: There is no acute intracranial hemorrhage. No extra-axial collection or midline shift. Encephalomalacia and adjacent gliosis within the left occipital lobe reflecting a remote infarction. Approximately 3.8 cm x 2.2 cm CSF density lesion within the anterior left middle cranial fossa, with resulting mild mass effect upon the adjacent temporal lobe, not significantly changed in comparison to the brain MRI examination dated 12/31/2020 and consistent with an arachnoid cyst. Patchy areas of hypoattenuation within the white matter of both hemispheres likely reflects sequela of chronic small vessel ischemia. Scattered intracranial atherosclerotic calcification. No acute hydrocephalus. The calvarium is unremarkable. The orbits are unremarkable. The paranasal sinuses are unremarkable. The mastoid air cells are unremarkable. The soft tissues are unremarkable. CT ANGIOGRAM HEAD AND NECK: The origins of the great vessels from the aortic arch are patent. The origins of the right and left vertebral arteries are patent. The common carotid arteries are patent. There is occlusion of the proximal right internal carotid artery, just distal to the level of the carotid bulb, with reconstitution intracranially by way of the [place] of [place]. There is mild (less than 50 percent) atherosclerotic stenosis of the origin of the left internal carotid artery by NASCET criteria. The more distal cervical segment of the left internal carotid artery is patent. The vertebral arteries are codominant. The cervical segments of the vertebral arteries are patent. No intracranial proximal large vessel occlusion or flow-limiting luminal stenosis. The anterior communicating artery is ectatic which is likely secondary to increased flow/cross-filling to the right anterior and middle cerebral artery territories from the patent intracranial left internal carotid artery. The visualized lung apices are unremarkable. The thyroid gland is unremarkable. There are advanced degenerative changes in the cervical spine. IMPRESSION: 1. No CT evidence of acute intracranial abnormality. 2. Remote infarction within the left occipital lobe. 3. Arachnoid cyst within the anterior left middle cranial fossa. 4. 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 5. Mild (less than 50 percent) atherosclerotic stenosis of the origin of the left internal carotid artery by NASCET criteria. 6. No intracranial proximal large vessel occlusion or flow-limiting luminal stenosis. Please note that all CT scans at this facility use dose modulation, iterative reconstruction, and/or weight-based dosing when appropriate to reduce radiation dose to as low as reasonably achievable. Dictated by Wong Wing MD @ 05/21/2021 9:12:[address] Wong Wing @ May 21 2021 9:12PM
[2021-05-21] MEDS ORDERED: Meclizine 25 MG Tab ONE (21:19)
[2021-05-21] MEDS ORDERED: Aspirin 325 MG Tab PO ONE (22:45)
[2021-05-22 00:55] VITALS: BP 135/77; PULSE 71
== END 2021-05-22 01:03 ==
LOC: MW.ED 16:45
DX: H53.8 Other visual disturbances (principal); R42 Dizziness and giddiness; I25.10 Atherosclerotic heart disease of native coronary artery without angina pectoris; I10 Essential (primary) hypertension; I25.2 Old myocardial infarction; J44.9 Chronic obstructive pulmonary disease, unspecified; M19.90 Unspecified osteoarthritis, unspecified site; E66.9 Obesity, unspecified; Z68.31 Body mass index [BMI] 31.0-31.9, adult; Z86.73 Personal history of transient ischemic attack (TIA), and cerebral infarction without residual deficits; Z88.5 Allergy status to narcotic agent; Z79.02 Long term (current) use of antithrombotics/antiplatelets; Z79.899 Other long term (current) drug therapy; Z20.822 Contact with and (suspected) exposure to COVID-19
CPT/HCPCS: 0240U; 36415; 70450; 70496; 70498; 71045; 80053; 80305; 80307; 81003; 83605; 85025; 85610; 87040; 93005; 99285; A9270; Q9967

== ENCOUNTER 2023-04-29 09:34 | Observation (INO) | payer MEDICARE, OTHER ==
[2023-04-29] MEDS ORDERED: Sodium Chloride 0.9% 2.5 ML Syringe FLUSH PRN ×2 (09:44→16:34)
[2023-04-29] MEDS ORDERED: Sodium Chloride 0.9% 10 ML Syringe FLUSH PRN ×3 (09:44→16:34)
[2023-04-29 09:52] LABS: EOSINOPHILS ABSOLUTE AUTO 0.3 K/uL (0.0-0.7); EOSINOPHILS PERCENT AUTO 2.8 % (0.0-7.0); HEMATOCRIT 44.7 % (38.0-50.0); LYMPHOCYTES ABSOLUTE AUTO 1.4 K/uL (0.6-2.4); LYMPHOCYTES PERCENT AUTO 13.3 % (16.0-40.0); MEAN CORPUSCULAR HEMOGLOBIN 30.4 pg (27.0-32.0); MEAN CORPUSCULAR HGB CONC 33.6 g/dL (31.0-37.0); MEAN CORPUSCULAR VOLUME 90.7 fL (80.0-98.0); MONOCYTES ABSOLUTE AUTO 0.6 K/uL (0.0-0.8); MONOCYTES PERCENT AUTO 5.5 % (0.0-15.0); PLATELET COUNT,PLT 213 K/uL (150-400); RED BLOOD CELL COUNT 4.93 M/uL (4.50-5.90); WHITE BLOOD CELL COUNT,WBC 10.76 K/uL (4.0-11.0)
[2023-04-29 10:03] LABS: BASOPHILS PERCENT AUTO 1.1 % (0.0-1.5); NEUTROPHILS PERCENT AUTO 77.3 % (48.0-80.0)
[2023-04-29 10:04] LABS: BASOPHILS ABSOLUTE AUTO 0.1 K/uL (0.0-0.1); NEUTROPHILS ABSOLUTE AUTO 8.3 K/uL (1.4-5.7)
[2023-04-29 10:28] LABS: A/G RATIO 1.3 (0.9-1.6); ALBUMIN 3.4 g/dL (3.4-5.0); BILIRUBIN TOTAL 1.4 mg/dL (0.2-1.0); CALCIUM 8.5 mg/dL (8.5-10.1); CARBON DIOXIDE,CO2 28.4 mmol/L (21.0-32.0); CREATININE 1.1 mg/dL (0.8-1.3); EST CRCL DRUG DOSING (CG) 61.76 mL/min; POTASSIUM,K 3.7 mmol/L (3.5-5.1); PROTEIN TOTAL,TP 6.1 g/dL (6.4-8.2)
[2023-04-29] MEDS ORDERED: Aspirin 81 MG Tab.Chew PO ONE (11:24)
[2023-04-29] MEDS ORDERED: Clopidogrel 75 MG Tab PO ONE (11:25)
[2023-04-29] MEDS ORDERED: Acetaminophen 325 MG Tab PO PRN (15:07)
[2023-04-29] MEDS ORDERED: Ondansetron 4 MG/2 ML SDV IVPUSH PRN (15:10)
[2023-04-29] MEDS ORDERED: Meclizine 25 MG Tab PO PRN ×2 (15:10→15:30)
[2023-04-29] MEDS ORDERED: Acetaminophen/HYDROcodone 325-5 MG Tab PO PRN (15:10)
[2023-04-29] MEDS ORDERED: Nitroglycerin 0.4 MG Tab.SL SL PRN (16:34)
[2023-04-29] MEDS ORDERED: Sodium Chloride 0.9% 20 ML SDV IV PRN (16:34)
[2023-04-29] MEDS ORDERED: Polyethylene Glycol 3350 Powder 17 GM Packet PO PRN (16:37)
[2023-04-29] MEDS ORDERED: Albuterol/Ipratropium 3.0-0.5 MG/3 ML Neb Soln NEB PRN (16:37)
[2023-04-29 17:28] LABS: TSH ULTRASENSITIVE 0.93 uIU/mL (0.36-3.74)
[2023-04-29 18:21] LABS: HEMOGLOBIN A1C 5.6 %
[2023-04-29] MEDS ORDERED: Pramipexole 0.25 MG Tab PO SCH (21:00)
[2023-04-30 06:07] LABS: BASOPHILS ABSOLUTE AUTO 0.1 K/uL (0.0-0.1); BASOPHILS PERCENT AUTO 1.1 % (0.0-1.5); EOSINOPHILS ABSOLUTE AUTO 0.3 K/uL (0.0-0.7); EOSINOPHILS PERCENT AUTO 3.6 % (0.0-7.0); HEMATOCRIT 46.2 % (38.0-50.0); HEMOGLOBIN 15.6 g/dL (13.0-17.0); LYMPHOCYTES ABSOLUTE AUTO 1.8 K/uL (0.6-2.4); MEAN CORPUSCULAR HEMOGLOBIN 30.4 pg (27.0-32.0); MEAN CORPUSCULAR HGB CONC 33.8 g/dL (31.0-37.0); MEAN CORPUSCULAR VOLUME 89.9 fL (80.0-98.0); MONOCYTES ABSOLUTE AUTO 0.6 K/uL (0.0-0.8); MONOCYTES PERCENT AUTO 6.6 % (0.0-15.0); NEUTROPHILS ABSOLUTE AUTO 5.6 K/uL (1.4-5.7); NEUTROPHILS PERCENT AUTO 66.7 % (48.0-80.0); PLATELET COUNT,PLT 235 K/uL (150-400); RED BLOOD CELL COUNT 5.14 M/uL (4.50-5.90); WHITE BLOOD CELL COUNT,WBC 8.32 K/uL (4.0-11.0)
[2023-04-30] MEDS ORDERED: Losartan 50 MG Tab PO SCH (09:00)
[2023-04-30] MEDS ORDERED: Clopidogrel 75 MG Tab PO SCH (09:00)
[2023-04-30] MEDS ORDERED: Furosemide 20 MG Tab PO SCH (09:00)
[2023-04-30] MEDS ORDERED: Ezetimibe 10 MG Tab PO SCH (09:00)
[2023-04-30 11:41] VITALS: BP 145/78; PULSE 72
== END 2023-04-30 13:00 | disposition home or self-care (01) ==
LOC: MW.ED 09:34 → MW.MS 13:40
PROVIDERS: ADMIT Internal Medicine; ATTEND Internal Medicine
DX: R53.1 Weakness (principal); R55 Syncope and collapse; R07.9 Chest pain, unspecified; I25.10 Atherosclerotic heart disease of native coronary artery without angina pectoris; R61 Generalized hyperhidrosis; I10 Essential (primary) hypertension; E78.5 Hyperlipidemia, unspecified; I25.2 Old myocardial infarction; J44.9 Chronic obstructive pulmonary disease, unspecified; M54.9 Dorsalgia, unspecified; G89.29 Other chronic pain; F41.9 Anxiety disorder, unspecified; M19.90 Unspecified osteoarthritis, unspecified site; E66.9 Obesity, unspecified; F17.210 Nicotine dependence, cigarettes, uncomplicated; Z88.5 Allergy status to narcotic agent; Z95.5 Presence of coronary angioplasty implant and graft; Z90.49 Acquired absence of other specified parts of digestive tract; Z98.890 Other specified postprocedural states; Z96.651 Presence of right artificial knee joint; Z90.89 Acquired absence of other organs; Z79.82 Long term (current) use of aspirin
CPT/HCPCS: 36415; 71045; 80053; 80061; 82607; 83036; 83735; 83880; 84443; 84484; 85025; 85379; 93005; 99285; A9270; J3490; 93010